=== PATIENT | male | born 1940 | race Caucasian/White ===

== ENCOUNTER 2018-05-09 20:31 | Inpatient (IN) | payer MEDICARE ==
[2018-05-10 01:36] VITALS: BP 149/70
[2018-05-10] MEDS ORDERED: Magnesium Hydroxide (MOM) 30 mL UDC PO PRN (01:36)
[2018-05-10] MEDS ORDERED: NITROGLYCERIN 2.5 MG PO PRN (01:41)
[2018-05-10] MEDS ORDERED: POTASSIUM CITRATE PO PRN (01:41)
[2018-05-10] MEDS ORDERED: MAGNESIUM OXIDE 800 MG PO PRN (01:41)
--- NOTE | 2018-05-10 07:49 | Psychiatric Evaluation ---
DATE OF SERVICE: 05/10/2018 JUSTIFICATION FOR HOSPITALIZATION: The patient with worsening confusion, combative behaviors, more paranoid. CHIEF COMPLAINT: Psychotic decompensation. HISTORY OF PRESENT ILLNESS: This is a 77-year-old male brought in from [facility]. The patient reported to have been very confused, combative, garbled speech, withdrawn. On [id number], the patient says nothing to me, stares blankly, per staff he is confused, AO to name only, able to follow simple instructions, needing a higher level of care, high level of nursing care. For example, wears diapers. PAST PSYCHIATRIC HISTORY: Dementia. PAST MEDICAL HISTORY: Craniotomy, brain stimulation history of as well as Parkinson's disease. FAMILY HISTORY: Unclear. SOCIAL HISTORY: Generally unclear. Per documentation, he is coming from an address in [facility], friend on face sheet. MEDICATIONS: Noted. MENTAL STATUS EXAMINATION: Stated age. Having appeared staring blankly, not saying anything to me. Per staff AO to name only. Mood not answering. Affect flat. Thought processes were generally confused, disoriented. No overt SI or HI, unclear psychotic symptoms. Insight and judgment diminished. Poor impulse control. PROVISIONAL DIAGNOSES: Dementia with behaviors. Mood, unspecified; anxiety, unspecified. Under medical please see full H and P. ESTIMATED LENGTH OF STAY: 5-7 days. Functional impairments noted and constant for example pain, not answering. ASSESSMENT: The patient unruly, aggressive, combative, could not be cared for a lower level of care. PLAN: We will continue medications, make appropriate adjustments. TREATMENT PLAN: Includes group as well as milieu therapy. CONDITIONS FOR DISCHARGE: Improved mood, improved affect, better control of any combative behaviors. JOB# [id number]
--- NOTE | 2018-05-11 10:13 | Progress Notes ---
DATE: 05/11/2018 SUBJECTIVE: The patient in the hospital, worsening confusion, combative behavior is brought in from [facility], confused, combative, garbled speech, staring blankly, appearing to be AO to name only, confused, disoriented, resting comfortably in bed right now, sleeping, but arousable, following simple commands, seems to be AO to name only, not answering any of questions. The patient with advanced dementia, craniotomy with brain stimulator. ASSESSMENT: The patient requiring a higher level of care, impulsive, unpredictable. The patient with combative behaviors previously, behaviors remain unpredictable sometimes resistant to care. Medications were noted. PLAN: We will continue to monitor, titrate and adjust medications. Continue Greg Rich. JOB# [id number]
--- NOTE | 2018-05-11 19:41 | History & Physical ---
ADMIT DATE: 05/09/2018 SUBJECTIVE: The patient is a 77-year-old male patient who was brought for the psych unit for Geropsych problem which is getting worsening, confusion, very combative behavior and more paranoid. CHIEF COMPLAINT: Basically as above. HISTORY OF PRESENT ILLNESS: A 77-year-old male patient. The patient came from [facility]. The patient has been confused and has been very combative and no other history could be obtained from him. PAST MEDICAL HISTORY: Includes history of dementia, history of craniotomy with nerve stimulation history as well and history of Parkinson disease. FAMILY HISTORY: Unremarkable. SOCIAL HISTORY: Difficult to obtain. MEDICATIONS: As noted in the chart. PHYSICAL EXAMINATION: HEAD: Normal. ENT: Normal. NECK: Supple, nontender. LUNGS: Bilaterally clear. CARDIOVASCULAR SYSTEM: S1, S2 heard. ABDOMEN: Soft. Bowel sounds are heard. CENTRAL NERVOUS SYSTEM: Basically the patient is shaky, he has Parkinson disease and the patient has dementia. He is very confused, combative. DIAGNOSES: Combativeness, aggressiveness, impulsive behavior, psychosis, history of depression and status post history of severe dementia. He is status post craniotomy. PLAN: The patient is being admitted and I will follow along with the psychiatrist and I will follow medically. [facility]# [id number]
--- NOTE | 2018-05-12 10:29 | General Progress Note ---
Subjective - Review of Systems Events since last encounter: patient is paranoid confused irritable, denies pain Objective - Physical Exam Vitals and I&O: Vital Signs Temp 98.2 F 05/11/18 20:12 Pulse 97 05/12/18 08:56 Resp 18 05/11/18 20:12 BP 172/85 05/12/18 08:56 Pulse Ox 97 05/11/18 20:12 Intake & Output 05/11/18 05/12/18 05/12/18 18:59 06:59 18:59 Intake Total 1100 120 Balance 1100 120 Intake: Oral 1100 120 Other: # Voids 3 3 # Bowel Movements 0 Active Medications: Current Medications Acetaminophen (Tylenol) 650 mg PO Q4HR PRN PRN Reason: Mild Pain / Temp above 100 Stop: 07/09/18 01:35 Amlodipine Besylate (Norvasc) 2.5 mg PO DAILY [facility] Stop: 07/09/18 08:59 Last Admin: 05/12/18 08:56 Dose: 2.5 mg Carbidopa/Levodopa (Sinemet 25mg-100 Mg) 1 tab PO Q6HR [facility] Stop: 07/09/18 05:59 Last Admin: 05/12/18 06:30 Dose: 1 tab Entacapone (Comtan) 200 mg PO Q6HR [facility] Stop: 07/09/18 05:59 Last Admin: 05/12/18 06:30 Dose: 200 mg Escitalopram Oxalate (Lexapro) 10 mg PO DAILY [facility]; Protocol Stop: 07/09/18 08:59 Last Admin: 05/12/18 08:57 Dose: 10 mg Gabapentin (Neurontin) 100 mg PO BID [facility] Stop: 07/09/18 08:59 Last Admin: 05/12/18 08:57 Dose: 100 mg Lorazepam (Ativan) 0.5 mg PO Q4HR PRN; Protocol PRN Reason: Anxiety Stop: 06/09/18 01:35 Magnesium Hydroxide (Milk Of Magnesia) 30 ml PO HS PRN PRN Reason: Constipation Memantine (Namenda) 5 mg PO DAILY [facility] Stop: 07/09/18 08:59 Last Admin: 05/12/18 08:57 Dose: 5 mg Nitroglycerin (Nitrostat) 0.4 mg SL Q5M PRN PRN Reason: Chest Pain Stop: 07/09/18 07:14 Simvastatin (Zocor) 20 mg PO HS [facility]; Protocol Stop: 07/09/18 20:59 Last Admin: 05/11/18 21:46 Dose: 20 mg Temazepam (Restoril) 15 mg PO HS PRN; Protocol PRN Reason: Sleeplessness Stop: 07/09/18 01:40 Zolpidem Tartrate (Ambien) 5 mg PO HS PRN PRN Reason: Insomnia Stop: 07/09/18 01:35 General: No acute distress HEENT: Atraumatic Neck: Supple Cardiovascular: Regular rate, Normal S1, Normal S2 Lungs: Clear to auscultation Abdomen: Bowel sounds Assessment/Plan - Problem List Patient Problems: All Active Problems Aggressiveness (Acute) R46.89 Combative behavior (Acute) R46.89 Depression (Acute) F32.9 History of impulsive behavior (Acute) Z86.59 Psychosis (Acute) F29 Severe dementia (Acute) F03.90 Status post craniotomy (Acute) Z98.890 - Plan Plan: as per psych will monitor
--- NOTE | 2018-05-12 13:31 | History & Physical ---
ADMIT DATE: 05/10/2018 CHIEF COMPLAINT: Agitation. HISTORY OF PRESENT ILLNESS: This is a 77-year-old male who was admitted through the Emergency Room from [facility] due to agitation and confusion. REVIEW OF SYSTEMS: GENERAL: This is a 77-year-old male who appears as stated. No weakness. No fever. HEENT: No headache. No dizziness. EYES: No eye pain, no blurring of vision. NECK: No neck pain, no nuchal rigidity. CHEST: No chest pain or palpitation. PULMONARY: No coughing. No shortness of breath. GASTROINTESTINAL: No abdominal pain, no constipation, no diarrhea. MUSCULOSKELETAL: No joint pain. Dictation ends here JOB# [id number]
--- NOTE | 2018-05-12 14:49 | Progress Notes ---
DATE: 05/12/2018 SUBJECTIVE: A 77-year-old male brought in from [facility], confused, combative, garbled speech, withdrawn. The patient is still very confused, disoriented, not saying much. History of dementia, craniotomy, requiring a higher level of nursing care. Resting in bed, arousable when I tried to wake him, but not saying anything, staring blankly, needing a higher level of ADLs, remains isolative, withdrawn, mostly keeps to himself, mumbling to self, ongoing concerns about her impulse control, appearing sad, withdrawn, sometimes disruptive, mood labile, selectively mute, coming in because of combative behaviors. ASSESSMENT: The patient remains impulsive, unpredictable, requiring a higher level of nursing care. Staring blankly at me. Unable to really participate in any meaningful conversation. PLAN: We will continue to monitor. MEDICATIONS: Reviewed. JOB# [id number]
[2018-05-13 08:11] LABS: % BASOPHILS 2.1 % (0.0-2.0); % EOSINOPHILS 0.1 % (0.0-5.0); % LYMPHOCYTES 10.6 % (20.0-50.0); % MONOCYTES 4.7 % (2.0-10.0); % NEUTROPHILS 82.5 % (40.0-80.0); BASOPHILE ABSOLUTE 0.2 Th/cumm (0-0.2); HEMATOCRIT 45.9 % (41.0-60); HEMOGLOBIN 15.5 gm/dL (12-16); LYMPHOCYTE ABSOLUTE 0.9 Th/cmm (1.5-3.0); MEAN CELL VOLUME 90.8 fl (80-99); MEAN CORPUSCULAR HEMOGLOBIN 30.7 pg (27.0-31.0); MEAN CORPUSCULAR HGB CONC 33.8 pg (28.0-36.0); MEAN PLATELET VOLUME 8.3 fl; MONOCYTE ABSOLUTE 0.4 Th/cmm (0.3-1.0); PLATELET COUNT 337 Th/cmm (150-400); RED BLOOD COUNT 5.05 Mil/cmm (3.80-5.80); RED CELL DISTRIBUTION WIDTH 12.8 % (11.5-20.0); WHITE BLOOD COUNT 8.5 Th/cmm (4.8-10.8)
--- NOTE | 2018-05-13 08:20 | Diagnostic Imaging Report ---
Portable chest x-ray Time: 0 739 History: Pneumonia Allowing for portable technique the heart size is normal. No focal pulmonary parenchymal processes. No hilar or mediastinal abnormalities. 5 mm granuloma is appreciated in the right lower lung, comparison will studies recommended. Impression: No acute abnormalities.
[2018-05-13 08:41] LABS: ALB/GLOB RATIO 1.4 (1.0-1.8); ALBUMIN 4.3 gm/dL (4.2-5.5); ALKALINE PHOSPHATASE 92 U/L (34-104); ANION GAP 12.2 (7.0-16.0); BILIRUBIN,TOTAL 0.7 mg/dL (0.3-1.0); BUN - UREA NITROGEN 39 mg/dL (7-25); CALCIUM SERUM 10.4 mg/dL (8.6-10.3); CARBON DIOXIDE 29.4 mEq/L (21.0-31.0); CHLORIDE 109 mEq/L (98-107); CREATININE - SERUM 1.2 mg/dL (0.7-1.3); GLUCOSE 149 mg/dL (70-105); POTASSIUM SERUM 3.6 mEq/L (3.5-5.1); SGOT 13 U/L (13-39); SGPT/ALT 3 U/L (7-52); SODIUM SERUM 147 mEq/L (136-145); TOTAL PROTEIN,SERUM 7.4 gm/dL (6.0-8.3)
--- NOTE | 2018-05-13 23:44 | Progress Notes ---
DATE: 05/13/[address] Borrero. SUBJECTIVE: Case was discussed with staff of the patient, reviewed records. This is a 77-year-old male who does not feel depressed, although ____ confusion, combative behavior, paranoid who came from [facility]. The patient was very confused, guarded speech, withdrawn, unable to carry on a conversation. He can tell his name. Unable to follow simple instructions. He is demented. He has a history of craniotomy, brain stimulation and Parkinson's disease. The patient appears to be internally preoccupied, would not follow any conversation. He is on Lexapro 10 mg daily, and Sinemet, gabapentin 100 mg twice a day, Namenda 5 mg daily, and no side effects with the medication, no sedation, no nausea. I will continue the patient in group therapy, milieu therapy and adjust medications. JOB# [id number]
--- NOTE | 2018-05-14 15:45 | General Progress Note ---
Subjective - Review of Systems Events since last encounter: patient is confused paranoid anxious Objective - Results Result Diagrams: 05/13/18 08:05 05/13/18 08:05 Recent Labs: Laboratory Last Values WBC 8.5 Th/cmm (4.8-10.8) 05/13/18 08:05 RBC 5.05 Mil/cmm (3.80-5.80) 05/13/18 08:05 Hgb 15.5 gm/dL (12-16) 05/13/18 08:05 Hct 45.9 % (41.0-60) 05/13/18 08:05 MCV 90.8 fl (80-99) 05/13/18 08:05 MCH 30.7 pg (27.0-31.0) 05/13/18 08:05 MCHC Differential 33.8 pg (28.0-36.0) 05/13/18 08:05 RDW 12.8 % (11.5-20.0) 05/13/18 08:05 Plt Count 337 Th/cmm (150-400) 05/13/18 08:05 MPV 8.3 fl 05/13/18 08:05 Neutrophils % 82.5 % (40.0-80.0) H 05/13/18 08:05 Lymphocytes % 10.6 % (20.0-50.0) L 05/13/18 08:05 Monocytes % 4.7 % (2.0-10.0) 05/13/18 08:05 Eosinophils % 0.1 % (0.0-5.0) 05/13/18 08:05 Basophils % 2.1 % (0.0-2.0) H 05/13/18 08:05 Sodium 147 mEq/L (136-145) H 05/13/18 08:05 Potassium 3.6 mEq/L (3.5-5.1) 05/13/18 08:05 Chloride 109 mEq/L (98-107) H 05/13/18 08:05 Carbon Dioxide 29.4 mEq/L (21.0-31.0) 05/13/18 08:05 Anion Gap 12.2 (7.0-16.0) 05/13/18 08:05 BUN 39 mg/dL (7-25) H 05/13/18 08:05 Creatinine 1.2 mg/dL (0.7-1.3) 05/13/18 08:05 Est GFR ( Amer) TNP 05/13/18 08:05 Est GFR (Non-Af Amer) TNP 05/13/18 08:05 BUN/Creatinine Ratio 32.5 05/13/18 08:05 Glucose 149 mg/dL (70-105) H 05/13/18 08:05 Calcium 10.4 mg/dL (8.6-10.3) H 05/13/18 08:05 Total Bilirubin 0.7 mg/dL (0.3-1.0) 05/13/18 08:05 AST 13 U/L (13-39) 05/13/18 08:05 ALT 3 U/L (7-52) L 05/13/18 08:05 Alkaline Phosphatase 92 U/L (34-104) 05/13/18 08:05 Ammonia 46 umol/L (16-53) 05/13/18 08:05 Total Protein 7.4 gm/dL (6.0-8.3) 05/13/18 08:05 Albumin 4.3 gm/dL (4.2-5.5) 05/13/18 08:05 Globulin 3.1 gm/dL 05/13/18 08:05 Albumin/Globulin Ratio 1.4 (1.0-1.8) 05/13/18 08:05 TSH 0.32 uIU/ml (0.34-5.60) L 05/13/18 08:05 - Physical Exam Vitals and I&O: Vital Signs Temp 98.2 F 05/14/18 14:00 Pulse 60 05/14/18 14:00 Resp 20 05/14/18 14:00 BP 120/67 05/14/18 14:00 Pulse Ox 96 05/14/18 14:00 Intake & Output 05/13/18 05/14/18 05/14/18 18:59 06:59 18:59 Intake Total 700 120 Balance 700 120 Intake: Oral 700 120 Other: # Voids 2 3 # Bowel Movements 0 Active Medications: Current Medications Acetaminophen (Tylenol) 650 mg PO Q4HR PRN PRN Reason: Mild Pain / Temp above 100 Stop: 07/09/18 01:35 Last Admin: 05/12/18 22:03 Dose: 650 mg Amlodipine Besylate (Norvasc) 2.5 mg PO DAILY [facility] Stop: 07/09/18 08:59 Last Admin: 05/14/18 08:30 Dose: 2.5 mg Carbidopa/Levodopa (Sinemet 25mg-100 Mg) 1 tab PO Q6HR [facility] Stop: 07/09/18 05:59 Last Admin: 05/14/18 14:24 Dose: Not Given Entacapone (Comtan) 200 mg PO Q6HR [facility] Stop: 07/09/18 05:59 Last Admin: 05/14/18 12:20 Dose: Not Given Escitalopram Oxalate (Lexapro) 10 mg PO DAILY [facility]; Protocol Stop: 07/09/18 08:59 Last Admin: 05/14/18 08:30 Dose: 10 mg Gabapentin (Neurontin) 100 mg PO BID [facility] Stop: 07/09/18 08:59 Last Admin: 05/14/18 08:30 Dose: 100 mg Lorazepam (Ativan) 0.5 mg PO Q4HR PRN; Protocol PRN Reason: Anxiety Stop: 06/09/18 01:35 Magnesium Hydroxide (Milk Of Magnesia) 30 ml PO HS PRN PRN Reason: Constipation Memantine (Namenda) 5 mg PO DAILY [facility] Stop: 07/09/18 08:59 Last Admin: 05/14/18 08:30 Dose: 5 mg Nitroglycerin (Nitrostat) 0.4 mg SL Q5M PRN PRN Reason: Chest Pain Stop: 07/09/18 07:14 Simvastatin (Zocor) 20 mg PO HS [facility]; Protocol Stop: 07/09/18 20:59 Last Admin: 05/13/18 21:32 Dose: Not Given Temazepam (Restoril) 15 mg PO HS PRN; Protocol PRN Reason: Sleeplessness Stop: 07/09/18 01:40 Zolpidem Tartrate (Ambien) 5 mg PO HS PRN PRN Reason: Insomnia Stop: 07/09/18 01:35 General: No acute distress HEENT: Atraumatic Neck: Supple Cardiovascular: Regular rate, Normal S1, Normal S2 Lungs: Clear to auscultation Abdomen: Bowel sounds Assessment/Plan - Problem List Patient Problems: All Active Problems Aggressiveness (Acute) R46.89 Combative behavior (Acute) R46.89 Depression (Acute) F32.9 History of impulsive behavior (Acute) Z86.59 Psychosis (Acute) F29 Severe dementia (Acute) F03.90 Status post craniotomy (Acute) Z98.890 - Plan Plan: as per psych will monitor
--- NOTE | 2018-05-14 21:26 | Progress Notes ---
DATE: 05/14/2018 Case was discussed with staff of the patient, reviewed records. The patient continues to be confused. Continues to be unpredictable, impulsive, and paranoid. Continues to have poor insight. Unable to follow direction or participate in a meaningful conversation, internally preoccupied. He is compliant with the medication with no side effects, no sedation, no nausea and Namenda was initiated 2 days ago. We will continue outpatient group therapy, milieu therapy, adjust the medication as needed. JOB# [id number]
--- NOTE | 2018-05-15 11:42 | General Progress Note ---
Subjective - Review of Systems Events since last encounter: patient awake alert in no distress Objective - Results Result Diagrams: 05/13/18 08:05 05/13/18 08:05 Recent Labs: Laboratory Last Values WBC 8.5 Th/cmm (4.8-10.8) 05/13/18 08:05 RBC 5.05 Mil/cmm (3.80-5.80) 05/13/18 08:05 Hgb 15.5 gm/dL (12-16) 05/13/18 08:05 Hct 45.9 % (41.0-60) 05/13/18 08:05 MCV 90.8 fl (80-99) 05/13/18 08:05 MCH 30.7 pg (27.0-31.0) 05/13/18 08:05 MCHC Differential 33.8 pg (28.0-36.0) 05/13/18 08:05 RDW 12.8 % (11.5-20.0) 05/13/18 08:05 Plt Count 337 Th/cmm (150-400) 05/13/18 08:05 MPV 8.3 fl 05/13/18 08:05 Neutrophils % 82.5 % (40.0-80.0) H 05/13/18 08:05 Lymphocytes % 10.6 % (20.0-50.0) L 05/13/18 08:05 Monocytes % 4.7 % (2.0-10.0) 05/13/18 08:05 Eosinophils % 0.1 % (0.0-5.0) 05/13/18 08:05 Basophils % 2.1 % (0.0-2.0) H 05/13/18 08:05 Sodium 147 mEq/L (136-145) H 05/13/18 08:05 Potassium 3.6 mEq/L (3.5-5.1) 05/13/18 08:05 Chloride 109 mEq/L (98-107) H 05/13/18 08:05 Carbon Dioxide 29.4 mEq/L (21.0-31.0) 05/13/18 08:05 Anion Gap 12.2 (7.0-16.0) 05/13/18 08:05 BUN 39 mg/dL (7-25) H 05/13/18 08:05 Creatinine 1.2 mg/dL (0.7-1.3) 05/13/18 08:05 Est GFR ( Amer) TNP 05/13/18 08:05 Est GFR (Non-Af Amer) TNP 05/13/18 08:05 BUN/Creatinine Ratio 32.5 05/13/18 08:05 Glucose 149 mg/dL (70-105) H 05/13/18 08:05 POC Glucose 154 MG/DL (70-105) H 05/15/18 00:01 Calcium 10.4 mg/dL (8.6-10.3) H 05/13/18 08:05 Total Bilirubin 0.7 mg/dL (0.3-1.0) 05/13/18 08:05 AST 13 U/L (13-39) 05/13/18 08:05 ALT 3 U/L (7-52) L 05/13/18 08:05 Alkaline Phosphatase 92 U/L (34-104) 05/13/18 08:05 Ammonia 46 umol/L (16-53) 05/13/18 08:05 Total Protein 7.4 gm/dL (6.0-8.3) 05/13/18 08:05 Albumin 4.3 gm/dL (4.2-5.5) 05/13/18 08:05 Globulin 3.1 gm/dL 05/13/18 08:05 Albumin/Globulin Ratio 1.4 (1.0-1.8) 05/13/18 08:05 TSH 0.32 uIU/ml (0.34-5.60) L 05/13/18 08:05 - Physical Exam Vitals and I&O: Vital Signs Temp 98.2 F 05/14/18 14:00 Pulse 60 05/15/18 08:13 Resp 20 05/14/18 14:00 BP 120/67 05/15/18 08:13 Pulse Ox 96 05/14/18 14:00 Intake & Output 05/14/18 05/15/18 05/15/18 18:59 06:59 18:59 Intake Total 500 Balance 500 Intake: Oral 500 Other: # Voids 2 # Bowel Movements 0 Active Medications: Current Medications Acetaminophen (Tylenol) 650 mg PO Q4HR PRN PRN Reason: Mild Pain / Temp above 100 Stop: 07/09/18 01:35 Last Admin: 05/12/18 22:03 Dose: 650 mg Amlodipine Besylate (Norvasc) 2.5 mg PO DAILY [facility] Stop: 07/09/18 08:59 Last Admin: 05/15/18 08:13 Dose: 2.5 mg Carbidopa/Levodopa (Sinemet 25mg-100 Mg) 1 tab PO Q6HR [facility] Stop: 07/09/18 05:59 Last Admin: 05/15/18 05:41 Dose: Not Given Entacapone (Comtan) 200 mg PO Q6HR [facility] Stop: 07/09/18 05:59 Last Admin: 05/15/18 05:41 Dose: Not Given Escitalopram Oxalate (Lexapro) 10 mg PO DAILY [facility]; Protocol Stop: 07/09/18 08:59 Last Admin: 05/15/18 08:12 Dose: 10 mg Gabapentin (Neurontin) 100 mg PO BID [facility] Stop: 07/09/18 08:59 Last Admin: 05/15/18 08:12 Dose: 100 mg Lactobacillus Rhamnosus (Culturelle 15b) 1 each PO DAILY [facility] Stop: 07/15/18 08:59 Lorazepam (Ativan) 0.5 mg PO Q4HR PRN; Protocol PRN Reason: Anxiety Stop: 06/09/18 01:35 Magnesium Hydroxide (Milk Of Magnesia) 30 ml PO HS PRN PRN Reason: Constipation Memantine (Namenda) 5 mg PO DAILY [facility] Stop: 07/09/18 08:59 Last Admin: 05/15/18 08:13 Dose: 5 mg Nitroglycerin (Nitrostat) 0.4 mg SL Q5M PRN PRN Reason: Chest Pain Stop: 07/09/18 07:14 Simvastatin (Zocor) 20 mg PO HS [facility]; Protocol Stop: 07/09/18 20:59 Last Admin: 05/14/18 21:03 Dose: Not Given Temazepam (Restoril) 15 mg PO HS PRN; Protocol PRN Reason: Sleeplessness Stop: 07/09/18 01:40 Zolpidem Tartrate (Ambien) 5 mg PO HS PRN PRN Reason: Insomnia Stop: 07/09/18 01:35 General: No acute distress HEENT: Atraumatic Neck: Supple Cardiovascular: Regular rate, Normal S1, Normal S2 Lungs: Clear to auscultation Abdomen: Bowel sounds Assessment/Plan - Problem List Patient Problems: All Active Problems Aggressiveness (Acute) R46.89 Combative behavior (Acute) R46.89 Depression (Acute) F32.9 History of impulsive behavior (Acute) Z86.59 Psychosis (Acute) F29 Severe dementia (Acute) F03.90 Status post craniotomy (Acute) Z98.890 - Plan Plan: as per psych will monitor
--- NOTE | 2018-05-15 17:12 | Progress Notes ---
DATE: 05/15/2018 Case was discussed with staff of the patient, reviewed records. The patient continues to isolate himself. Continues to be overwhelmed, demented, confused, stays to himself and sleeping well. No side effects with the medication, no sedation, no nausea and we will continue outpatient group therapy, milieu therapy, adjust the medication as needed. JOB# [id number]
[2018-05-16 07:58] LABS: CHOLESTEROL 185 mg/dL (<200); HDL -HIGH DENSITY LIPOPROTEIN 35 mg/dL (23-92); TRIGLYCERIDES 121 mg/dL (<150)
[2018-05-16] MEDS ORDERED: Lactobacillus Rhamnosus GG 15 Billion CFU CAP.SPRINK PO SCH (09:00)
[2018-05-16 14:56] LABS: % EOSINOPHILS 0.2 % (0.0-5.0); % LYMPHOCYTES 8.6 % (20.0-50.0); % NEUTROPHILS 85.2 % (40.0-80.0); HEMATOCRIT 50.9 % (41.0-60); HEMOGLOBIN 17.4 gm/dL (12-16); LYMPHOCYTE ABSOLUTE 1.3 Th/cmm (1.5-3.0); MEAN CELL VOLUME 90.1 fl (80-99); MEAN CORPUSCULAR HEMOGLOBIN 30.9 pg (27.0-31.0); MEAN CORPUSCULAR HGB CONC 34.3 pg (28.0-36.0); MEAN PLATELET VOLUME 8.6 fl; MONOCYTE ABSOLUTE 0.9 Th/cmm (0.3-1.0); NEUTROPHILE ABSOLUTE 12.4 Th/cmm (1.8-8.0); PLATELET COUNT 231 Th/cmm (150-400); RED BLOOD COUNT 5.65 Mil/cmm (3.80-5.80); RED CELL DISTRIBUTION WIDTH 12.6 % (11.5-20.0); WHITE BLOOD COUNT 14.6 Th/cmm (4.8-10.8)
[2018-05-16 15:21] LABS: ALB/GLOB RATIO 1.2 (1.0-1.8); ALBUMIN 4.3 gm/dL (4.2-5.5); ALKALINE PHOSPHATASE 84 U/L (34-104); ANION GAP 14.4 (7.0-16.0); BILIRUBIN,TOTAL 0.8 mg/dL (0.3-1.0); CALCIUM SERUM 10.4 mg/dL (8.6-10.3); CARBON DIOXIDE 28.6 mEq/L (21.0-31.0); CHLORIDE 118 mEq/L (98-107); CREATININE - SERUM 1.9 mg/dL (0.7-1.3); GLUCOSE 166 mg/dL (70-105); SGOT 21 U/L (13-39); SGPT/ALT 19 U/L (7-52); SODIUM SERUM 157 mEq/L (136-145)
[2018-05-16 15:25] LABS: BUN - UREA NITROGEN 87 mg/dL (7-25)
--- NOTE | 2018-05-16 19:01 | History & Physical ---
ADMIT DATE: 05/09/2018 CHIEF COMPLAINT: Transferred from Geropsych Unit due to elevated BUN and creatinine and failure to thrive. HISTORY OF PRESENT ILLNESS: This is a 77-year-old male who is a resident of [facility]. Apparently, the patient was initially admitted to the Geropsych Unit. The patient has been refusing to eat and drink and the patient's stat BUN and creatinine was ordered and the patient's BUN and creatinine were elevated. For this reason, the patient is now admitted here to the med/surg unit. PAST MEDICAL HISTORY: Psychosis, hypertension, neuropathy, hypercholesterolemia and dementia. PAST SURGICAL HISTORY: Unknown. ALLERGIES: No drug allergies. HOME MEDICATIONS: See medication list. FAMILY HISTORY: Noncontributory. SOCIAL HISTORY: The patient is a intermediate resident, requiring 24-hour nursing care. REVIEW OF SYSTEMS: Unable to obtain at this time. PHYSICAL EXAMINATION: GENERAL: Elderly male, awake with confusion, no apparent distress. VITAL SIGNS: Temperature 101.2, heart rate 100, blood pressure 125/71, respirations 20 and O2 97%. HEENT: Head; normocephalic, atraumatic. NECK: Supple. No mass. LUNGS: Clear bilaterally. HEART: Regular rate and rhythm. ABDOMEN: Soft, nontender. LABORATORY DATA: WBC 14.6, H and H 17.4 and 50.9 and platelet of 231. Sodium 157, potassium 4.0, chloride 118, BUN 87 and creatinine 1.9. ASSESSMENT: Leukocytosis; severe dehydration; acute renal insufficiency, rule out severe dehydration; failure to thrive; dementia; hypertension and neuropathy. PLAN: The patient to be admitted to the med/surg unit. We will give patient aggressive IV fluids for hydration. If the patient's BUN and creatinine does not improve with IV fluids we will consider Nephrology consultation as well as a renal ultrasound as well. We will get a swallow evaluation done. Psychiatry consultation as well. We will get a urinalysis. We will continue to follow this patient. [facility]# [id number]
--- NOTE | 2018-06-01 18:31 | Discharge Summary ---
DATE OF DISCHARGE: 05/16/2018 AGE: 77. SEX: Male. PHYSICIAN: Dr. Borrero. FINAL DIAGNOSIS: PRIMARY DIAGNOSIS: Unspecified psychosis. SECONDARY DIAGNOSIS: Dementia with behavioral problems. REASON FOR HOSPITALIZATION: The patient was admitted to the hospital from [facility] because of increased agitation and because of combative behavior. HOSPITAL COURSE: The patient continued to be agitated and in irritable mood. The patient also was combative and he was in irritable mood. The patient also was having difficulty following directions. The patient was given Lexapro at a dose of 10 mg every day. Also, gabapentin 100 mg twice a day that helped the patient's mood and the patient was less irritable and less agitated. Also, was given Namenda in a dose of 5 mg everyday. Gradually, the patient's affect was brighter. The patient was less irritable and less agitated. The patient was not as aggressive and not as depressed and/or confused and the patient was discharged from the hospital. Physical examination of the patient showed the patient had no major medical problems while in the hospital. Blood workup was also basically within normal. AFTER-DISCHARGE PLANS: The patient discharged from the hospital with plans for outpatient treatment and followup to continue as an outpatient. EXPECTED OUTCOME AFTER DISCHARGE: Fair if the patient continues to take his psychotropic medications and follow up with discharge plans. JOB# [id number]
== END 2018-05-16 16:30 | disposition short-term general hospital (02) | DRG 885 ==
LOC: GERO 20:31
PROVIDERS: ADMIT Psychiatry & Neurology Psychiatry; ATTEND Psychiatry & Neurology Psychiatry
DX: F39 Unspecified mood [affective] disorder (principal); F02.81 Dementia in other diseases classified elsewhere, unspecified severity, with behavioral disturbance; F41.9 Anxiety disorder, unspecified; G20 Parkinson's disease; F29 Unspecified psychosis not due to a substance or known physiological condition; G62.9 Polyneuropathy, unspecified; E78.00 Pure hypercholesterolemia, unspecified; D72.829 Elevated white blood cell count, unspecified; E86.0 Dehydration; N28.9 Disorder of kidney and ureter, unspecified; R62.7 Adult failure to thrive
CPT/HCPCS: 36415-UA; 71045-TC; 80053-TC; 80061-TC; 82140-TC; 82948-90; 83036-90; 84443-TC; 85025-TC; Z7610

== ENCOUNTER 2018-05-16 15:51 | Inpatient (IN) | payer MEDICARE ==
[2018-05-16] MEDS ORDERED: Magnesium Hydroxide (MOM) 30 mL UDC PO PRN (16:06)
--- NOTE | 2018-05-16 16:53 | Progress Notes ---
DATE: 05/16/2018 Case was discussed with staff of the patient, reviewed records. The patient consistent in same bed, hardly say anything. Continues to have poor insight, withdrawn, internally preoccupied. Unable to pass a meaningful, or make safe plan for self-care, unpredictable, impulsive. His lab work shows high neutrophil and low lymphocyte the rest within normal range. Chemistry panel with high sodium level and high BUN and high blood sugar, high calcium. The rest within normal range. TSH is low at 0.32. I will be consulting the medical doctor regarding that and Dr. Paez. We will continue the patient in group therapy, milieu therapy, and adjust the medication as needed. JOB# [id number]
[2018-05-16] MEDS: D5-0.45NS 1,000 ML IV SCH (17:18)
[2018-05-16] MEDS: Levofloxacin 500mg/100mL 500 MG/100 ML BAG IV SCH (17:24)
[2018-05-16 19:05] VITALS: BP 130/71
[2018-05-16 23:33] LABS: URINE SOURCE CLEAN C
[2018-05-16 23:34] LABS: URINE BILIRUBIN NEGATIVE (NEGATIVE); URINE BLOOD TRACE (NEGATIVE); URINE GLUCOSE (UA) NEGATIVE (NEGATIVE); URINE KETONE NEGATIVE (NEGATIVE); URINE LEUKOCYTE ESTERASE NEGATIVE (NEGATIVE); URINE MICROSCOPIC INDICATED? YES; URINE NITRATE NEGATIVE (NEGATIVE); URINE PH 5.5 (4.6 - 8.0); URINE PROTEIN 30 mg/dL (NEGATIVE); URINE UROBILINOGEN 0.2 E.U./dL (0.2 - 1.0)
[2018-05-17] MEDS: D5-0.45NS 1,000 ML IV SCH (03:22)
[2018-05-17 04:30] LABS: URINE CLARITY HAZY (CLEAR); URINE COLOR YELLOW
[2018-05-17 04:37] LABS: URINE BACTERIA OCCASIONAL /hpf (NONE SEEN); URINE EPITHELIAL CELLS OCCASIONAL /lpf (FEW); URINE RBC 0-2 /hpf (0-5); URINE WBC 0-2 /hpf (0-5)
[2018-05-17 06:36] LABS: HEMATOCRIT 48.2 % (41.0-60); MEAN CELL VOLUME 91.5 fl (80-99); MEAN CORPUSCULAR HEMOGLOBIN 30.4 pg (27.0-31.0); MEAN CORPUSCULAR HGB CONC 33.2 pg (28.0-36.0); MEAN PLATELET VOLUME 9.8 fl; PLATELET COUNT 196 Th/cmm (150-400); RED BLOOD COUNT 5.27 Mil/cmm (3.80-5.80); RED CELL DISTRIBUTION WIDTH 12.8 % (11.5-20.0)
[2018-05-17 06:44] LABS: ALB/GLOB RATIO 1.3 (1.0-1.8); ALKALINE PHOSPHATASE 72 U/L (34-104); ANION GAP 13.8 (7.0-16.0); BILIRUBIN,TOTAL 0.9 mg/dL (0.3-1.0); CALCIUM SERUM 9.8 mg/dL (8.6-10.3); CARBON DIOXIDE 27.1 mEq/L (21.0-31.0); CHLORIDE 119 mEq/L (98-107); CREATININE - SERUM 1.8 mg/dL (0.7-1.3); GLUCOSE 196 mg/dL (70-105); POTASSIUM SERUM 3.9 mEq/L (3.5-5.1); SGOT 14 U/L (13-39); SGPT/ALT 16 U/L (7-52); SODIUM SERUM 156 mEq/L (136-145); TOTAL PROTEIN,SERUM 7.2 gm/dL (6.0-8.3)
[2018-05-17 06:56] LABS: WHITE BLOOD COUNT 15.9 Th/cmm (4.8-10.8)
[2018-05-17 07:25] LABS: BAND NEUTROPHILE 0 % (0-10); BASOPHIL 0 % (0-3); EOSINOPHIL 0 % (0-5); LYMPHOCYTE 7 % (20-50); MONOCYTE 3 % (2-10); NEUTROPHILS 90 % (40-80)
[2018-05-17 08:00] LABS: BUN - UREA NITROGEN 88 mg/dL (7-25)
[2018-05-17] MEDS: Lactobacillus Rhamnosus GG 15 Billion CFU CAP.SPRINK PO SCH (08:49)
[2018-05-17] MEDS ORDERED: D5-0.45NS 1,000 ML IV SCH (09:57)
--- NOTE | 2018-05-17 10:02 | Diagnostic Imaging Report ---
CHEST X-RAY: AP view INDICATION: Fever COMPARISON: 05/13/2018 FINDINGS: Bilateral similar apparatuses are noted limiting assessment of the mid lung zones. There is no focal consolidation or pleural effusions . Vessel on end versus 5 mm calcified granuloma the right lower lung zone is noted. Mild chronic lung changes are noted. Degenerative changes of the spine are noted. IMPRESSION: No focal consolidation identified. Note assessment and mid lung zones was suboptimal due to patient's bilateral stimulator apparatuses. Vessel on end versus 5 mm calcified granuloma of the right lower lung.
--- NOTE | 2018-05-17 11:55 | History & Physical ---
ADMIT DATE: 05/16/2018 CHIEF COMPLAINT: Failure to thrive. HISTORY OF PRESENT ILLNESS: This is a 77-year-old male who was admitted from [facility] to Med/Surg unit due to lethargic and poor oral intake. REVIEW OF SYSTEMS: GENERAL: This is a 77-year-old male that appears as stated. No fever. Positive weakness. HEAD: No headache. No dizziness. EYES: No eye pain or blurring of vision. NECK: No neck pain or nuchal rigidity. CHEST: No chest pain. No palpitation. PULMONARY: No coughing. No shortness of breath. GASTROINTESTINAL: No abdominal pain. No constipation or diarrhea. MUSCULOSKELETAL: No joint pain. No muscle pain. SOCIAL HISTORY: The patient was being treated in [facility] prior to being transferred to Med/Surg unit. FAMILY HISTORY: Unremarkable. PAST SURGICAL HISTORY: Unremarkable. PAST MEDICAL HISTORY: Includes osteoarthritis, hypertension, Parkinson's disease, and hyperlipidemia,. PAST PSYCHIATRIC HISTORY: Included dementia. PHYSICAL EXAMINATION: VITAL SIGNS: Temperature is 99.3, heart rate of 85, blood pressure 142/77, respirations 17, and saturation of 95% on room air. GENERAL: This is a 77-year-old male that appears as stated in no acute distress. HEENT: Head is atraumatic, normocephalic. Eyes, bilateral conjunctivae are clear. Bilateral pupils equal, round and reactive. NECK: Supple. No JVD. CARDIOVASCULAR: S1 and S2, without murmur. LUNGS: Clear to auscultation. GASTROINTESTINAL: Soft and nontender without guarding. Positive bowel sounds. MUSCULOSKELETAL: No clubbing. No cyanosis noted. ASSESSMENT: 1. Failure to thrive. 2. Dementia. 3. Hypertension. 4. Parkinson's disease. 5. Hyperlipidemia. 6. Osteoarthritis. PLAN: We will do medication reconciliation accordingly. We will have the patient ____ a swallow evaluation. We will also get the patient with IV fluids. Treatment plans were discussed with the patient's nurse. Treatment plans were discussed with Dr. Paez. JOB# [id number]
[2018-05-17] MEDS ORDERED: Dextrose 5% 1,000 ML IV SCH (13:12)
[2018-05-17] MEDS: Dextrose 5% 1,000 ML IV SCH ×2 (14:19→20:40)
[2018-05-17 16:13] LABS: URINE SOURCE CATH
[2018-05-17 16:27] LABS: URINE BILIRUBIN NEGATIVE (NEGATIVE); URINE CLARITY CLEAR (CLEAR); URINE COLOR YELLOW; URINE GLUCOSE (UA) >=1000 mg/dL (NEGATIVE); URINE MICROSCOPIC INDICATED? YES
[2018-05-17 16:28] LABS: URINE BLOOD MODERATE (NEGATIVE); URINE KETONE NEGATIVE (NEGATIVE); URINE PROTEIN TRACE mg/dL (NEGATIVE); URINE UROBILINOGEN 0.2 E.U./dL (0.2 - 1.0)
[2018-05-17 16:29] LABS: URINE LEUKOCYTE ESTERASE NEGATIVE (NEGATIVE); URINE NITRATE NEGATIVE (NEGATIVE)
[2018-05-17 16:30] LABS: URINE BACTERIA 1+ /hpf (NONE SEEN); URINE EPITHELIAL CELLS FEW /lpf (FEW); URINE WBC 0-2 /hpf (0-5)
[2018-05-17 16:31] LABS: URINE FINE GRANULAR CAST 0-2 /lpf (NONE SEEN)
[2018-05-17] MEDS: Levofloxacin 500mg/100mL 500 MG/100 ML BAG IV SCH (17:00)
[2018-05-18] MEDS: Dextrose 5% 1,000 ML IV SCH ×3 (03:59→20:20)
[2018-05-18 06:48] LABS: % EOSINOPHILS 0.5 % (0.0-5.0); % LYMPHOCYTES 9.1 % (20.0-50.0); % MONOCYTES 6.7 % (2.0-10.0); % NEUTROPHILS 82.7 % (40.0-80.0); BASOPHILE ABSOLUTE 0.1 Th/cumm (0-0.2); EOSINOPHILE ABSOLUTE 0.1 Th/cmm (0.1-0.4); HEMATOCRIT 42.2 % (41.0-60); HEMOGLOBIN 14.1 gm/dL (12-16); LYMPHOCYTE ABSOLUTE 1.2 Th/cmm (1.5-3.0); MEAN CELL VOLUME 91.9 fl (80-99); MEAN CORPUSCULAR HEMOGLOBIN 30.6 pg (27.0-31.0); MEAN CORPUSCULAR HGB CONC 33.3 pg (28.0-36.0); MEAN PLATELET VOLUME 9.6 fl; MONOCYTE ABSOLUTE 0.9 Th/cmm (0.3-1.0); NEUTROPHILE ABSOLUTE 11.1 Th/cmm (1.8-8.0); PLATELET COUNT 146 Th/cmm (150-400); RED BLOOD COUNT 4.59 Mil/cmm (3.80-5.80); RED CELL DISTRIBUTION WIDTH 12.5 % (11.5-20.0); WHITE BLOOD COUNT 13.4 Th/cmm (4.8-10.8)
[2018-05-18 07:06] LABS: ALB/GLOB RATIO 1.3 (1.0-1.8); ALBUMIN 3.5 gm/dL (4.2-5.5); ALKALINE PHOSPHATASE 60 U/L (34-104); ANION GAP 10.8 (7.0-16.0); BILIRUBIN,TOTAL 0.9 mg/dL (0.3-1.0); BUN - UREA NITROGEN 63 mg/dL (7-25); CALCIUM SERUM 9.5 mg/dL (8.6-10.3); CARBON DIOXIDE 28.1 mEq/L (21.0-31.0); CHLORIDE 115 mEq/L (98-107); CREATININE - SERUM 1.5 mg/dL (0.7-1.3); GLUCOSE 172 mg/dL (70-105); POTASSIUM SERUM 3.9 mEq/L (3.5-5.1); SGOT 15 U/L (13-39); SGPT/ALT 11 U/L (7-52); SODIUM SERUM 150 mEq/L (136-145); TOTAL PROTEIN,SERUM 6.3 gm/dL (6.0-8.3)
[2018-05-18] MEDS: Lactobacillus Rhamnosus GG 15 Billion CFU CAP.SPRINK PO SCH (09:14)
--- NOTE | 2018-05-18 11:30 | General Progress Note ---
Subjective - Review of Systems Events since last encounter: patient still lethargic Objective - Results Result Diagrams: 05/18/18 06:29 05/18/18 06:29 Recent Labs: Laboratory Last Values WBC 13.4 Th/cmm (4.8-10.8) H 05/18/18 06:29 RBC 4.59 Mil/cmm (3.80-5.80) 05/18/18 06:29 Hgb 14.1 gm/dL (12-16) 05/18/18 06: Hct 42.2 % (41.0-60) 05/18/18 06: MCV 91.9 fl (80-99) 05/18/18 06: MCH 30.6 pg (27.0-31.0) 05/18/18: MCHC Differential 33.3 pg (28.0-36.0) 05/18/18 06: RDW 12.5 % (11.5-20.0) 05/18/18 06: Plt Count 146 Th/cmm (150-400) L 05/18/18 06: MPV 9.6 fl 05/18/18 06:29 Add Manual Diff YES 05/17/18 05:05 Neutrophils % 82.7 % (40.0-80.0) H 05/18/18 06: Band Neutrophils % 0 % (0-10) 05/17/18 05:05 Lymphocytes % 9.1 % (20.0-50.0) L 05/18/18 06: Monocytes % 6.7 % (2.0-10.0) 05/18/18 06: Eosinophils % 0.5 % (0.0-5.0) 05/18/18 06: Basophils % 1.0 % (0.0-2.0) 05/18/18 06:29 Neutrophils (Manual) 90 % (40-80) H 05/17/18 05:05 Lymphocytes 7 % (20-50) L 05/17/18 05:05 Monocytes 3 % (2-10) 05/17/18 05:05 Eosinophils 0 % (0-5) 05/17/18 05:05 Basophils 0 % (0-3) 05/17/18 05:05 Sodium 150 mEq/L (136-145) H 05/18/18 06:29 Potassium 3.9 mEq/L (3.5-5.1) 05/18/18 06:29 Chloride 115 mEq/L (98-107) H 05/18/18 06:29 Carbon Dioxide 28.1 mEq/L (21.0-31.0) 05/18/18 06:29 Anion Gap 10.8 (7.0-16.0) 05/18/18 06:29 BUN 63 mg/dL (7-25) H 05/18/18 06:29 Creatinine 1.5 mg/dL (0.7-1.3) H 05/18/18 06:29 Est GFR ( Amer) TNP 05/18/18 06:29 Est GFR (Non-Af Amer) TNP 05/18/18 06:29 BUN/Creatinine Ratio 42.0 05/18/18 06:29 Glucose 172 mg/dL (70-105) H 05/18/18 06:29 POC Glucose 181 MG/DL (70 - 105) H 05/16/18 18:51 Whole Bld Lactic Acid 1.37 mmol/L (0.60-1.99) 05/16/18 17:30 Calcium 9.5 mg/dL (8.6-10.3) 05/18/18 06:29 Magnesium 2.8 mg/dL (1.9-2.7) H 05/17/18 13:34 Total Bilirubin 0.9 mg/dL (0.3-1.0) 05/18/18 06:29 AST 15 U/L (13-39) 05/18/18 06:29 ALT 11 U/L (7-52) 05/18/18 06:29 Alkaline Phosphatase 60 U/L (34-104) 05/18/18 06:29 Total Protein 6.3 gm/dL (6.0-8.3) 05/18/18 06:29 Albumin 3.5 gm/dL (4.2-5.5) L 05/18/18 06:29 Globulin 2.8 gm/dL 05/18/18 06:29 Albumin/Globulin Ratio 1.3 (1.0-1.8) 05/18/18 06:29 Urine Source CATH 05/17/18 15:45 Urine Color YELLOW 05/17/18 15:45 Urine Clarity CLEAR (CLEAR) 05/17/18 15:45 Urine pH 6.0 (4.6 - 8.0) 05/17/18 15:45 Ur Specific [place] 1.010 (1.005-1.030) 05/17/18 15:45 Urine Protein TRACE mg/dL (NEGATIVE) 05/17/18 15:45 Urine Glucose (UA) >=1000 mg/dL (NEGATIVE) H 05/17/18 15:45 Urine Ketones NEGATIVE mg/dL (NEGATIVE) 05/17/18 15:45 Urine Blood MODERATE (NEGATIVE) H 05/17/18 15:45 Urine Nitrate NEGATIVE (NEGATIVE) 05/17/18 15:45 Urine Bilirubin NEGATIVE (NEGATIVE) 05/17/18 15:45 Urine Urobilinogen 0.2 E.U./dL (0.2 - 1.0) 05/17/18 15:45 Ur Leukocyte Esterase NEGATIVE (NEGATIVE) 05/17/18 15:45 Urine RBC 5-10 /hpf (0-5) H 05/17/18 15:45 Urine WBC 0-2 /hpf (0-5) 05/17/18 15:45 Ur Epithelial Cells FEW /lpf (FEW) 05/17/18 15:45 Urine Bacteria 1+ /hpf (NONE SEEN) H 05/17/18 15:45 Fine Granular Casts 0-2 /lpf (NONE SEEN) H 05/17/18 15:45 Urine Mucus FEW /lpf (FEW) 05/17/18 15:45 Ur Random Sodium 35 mmol/L 05/17/18 15:45 Urine Creatinine 83.0 mg/dl (39.0-259.0) 05/17/18 15:45 - Physical Exam Vitals and I&O: Vital Signs Temp 98.1 F 05/18/18 07:46 Pulse 66 05/18/18 09:14 Resp 18 05/18/18 08:00 BP 116/53 05/18/18 09:14 Pulse Ox 97 05/18/18 07:46 Intake & Output 05/17/18 05/18/18 05/18/18 18:59 06:59 18:59 Intake Total 100 1708.333 Output Total 200 Balance -100 1708.333 Weight (lbs) 51.256 kg 51.846 kg 51.71 kg Intake: Intake, IV Amount 100 1708.333 Dextrose 5% 1,000 ml @ 1708.333 125 mls/hr IV .Q8H [facility] Rx #:[id number] Levofloxacin 500mg/100mL 100 500 mg In 100 ml @ 100 mls/hr IV Q24HR [facility] Rx#: [id number] Oral 0 Output: Urine 200 Other: # Voids 3 1 # Bowel Movements 0 0 Weight Source Bedscale Bedscale Bedscale Active Medications: Current Medications Acetaminophen (Tylenol) 650 mg PO Q4HR PRN PRN Reason: Mild Pain / Temp above 100 Stop: 07/15/18 16:05 Amlodipine Besylate (Norvasc) 2.5 mg PO DAILY [facility] Stop: 07/16/18 08:59 Last Admin: 05/18/18 09:14 Dose: 2.5 mg Carbidopa/Levodopa (Sinemet 25mg-100 Mg) 1 tab PO Q6HR [facility] Stop: 07/15/18 17:59 Last Admin: 05/18/18 05:34 Dose: Not Given Entacapone (Comtan) 200 mg PO Q6HR [facility] Stop: 07/15/18 17:59 Last Admin: 05/18/18 05:34 Dose: Not Given Escitalopram Oxalate (Lexapro) 10 mg PO DAILY [facility]; Protocol Stop: 07/16/18 08:59 Gabapentin (Neurontin) 100 mg PO BID [facility] Stop: 07/15/18 16:59 Last Admin: 05/18/18 09:14 Dose: 100 mg Levofloxacin (Levaquin Pb) 500 mg in 100 mls @ 100 mls/hr IV Q24HR [facility] Stop: 07/15/18 16:59 Last Infusion: 05/17/18 18:02 Dose: Infused Dextrose (D5w) 1,000 mls @ 125 mls/hr IV .Q8H [facility] Stop: 07/16/18 13:25 Last Admin: 05/18/18 03:59 Dose: 125 mls/hr Lactobacillus Rhamnosus (Culturelle 15b) 1 each PO DAILY [facility] Stop: 07/16/18 08:59 Last Admin: 05/18/18 09:14 Dose: 1 each Lorazepam (Ativan) 0.5 mg PO Q4HR PRN; Protocol PRN Reason: Anxiety Stop: 07/15/18 16:05 Magnesium Hydroxide (Milk Of Magnesia) 30 ml PO HS PRN PRN Reason: Constipation Stop: 07/15/18 16:05 Memantine (Namenda) 5 mg PO DAILY [facility] Stop: 07/16/18 08:59 Last Admin: 05/18/18 09:22 Dose: 5 mg Mupirocin (Bactroban Oint) 1 appl NS BID [facility] Stop: 05/22/18 09:01 Last Admin: 05/18/18 09:14 Dose: 1 appl Nitroglycerin (Nitrostat) 0.4 mg SL Q5M PRN PRN Reason: Chest Pain Stop: 07/15/18 16:05 Simvastatin (Zocor) 20 mg PO HS [facility]; Protocol Stop: 07/15/18 20:59 Last Admin: 05/17/18 20:18 Dose: Not Given Temazepam (Restoril) 15 mg PO HS PRN; Protocol PRN Reason: Sleeplessness Stop: 07/15/18 16:05 Zolpidem Tartrate (Ambien) 5 mg PO HS PRN PRN Reason: Insomnia Stop: 07/15/18 16:05 General: No acute distress HEENT: Atraumatic Neck: Supple Cardiovascular: Regular rate, Normal S1, Normal S2 Lungs: Clear to auscultation Assessment/Plan - Plan Plan: cpm
--- NOTE | 2018-05-19 00:01 | Consultation ---
DATE OF CONSULTATION: 05/17/2018 REQUESTING PHYSICIAN FOR CONSULTATION: Dr. Paez. AGE: 77 years. SEX: Male. RACE: . HISTORY OF PRESENT ILLNESS: This patient who had been in [facility], reason for this is not clear, but the patient at the time of my evaluation is obtunded, not responding, lying fixed in the bed, no movement to the hands or legs and breathing on his own. The patient's vitals had been stable in the sense blood pressure is 132-140 systolic, diastolic 80 per minute. Jugular venous pressure is not raised. The skin turgor may be a little bit on the negative side. Neurologically, no response is available to voice, touch or any other stimulations. History available from the old records from [facility] reveals history of Parkinson's disease, history of dementia, history of craniotomy, history of brain stimulation and was inserted in the placement of an intracranial device for pain control by brain stimulation. There was a CT scan done, which states neural stimulating device is in place, unchanged in position and a stable CT of the head, unchanged from 02/28/2018. At present, the problems are very significant electrolyte changes. The patient is not awake and obtunded. BIOCHEMICAL DATA: Available has been as follows, sodium 156, potassium 3.9, chloride 119, CO2 content 27.7, BUN 88, creatinine 1.8, glucose 196, calcium 9.8, bilirubin normal. Liver enzymes are essentially normal. Total protein 7.2 and albumin 4.0 with globulin being 3.2. CBC done reveals hemoglobin of 16.0 grams percent, WBC count 15.9, platelet count 196. 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 This could be due to brain damage secondary to maybe that intracranial placement of stimulating device or could be from the previous injuries whatever this fellow has sustained. At present, the current treatment would be to put him on a D5W, at about 125-150 mL per hour and repeat the chemistry, since the patient looks like hemoconcentration that is why the hemoglobin has gone up to 16, same reason, the BUN and creatinine is high and that should improve. Would follow serially chemistries until it normalizes and then do some more urine studies, which has been already ordered. Other problems depend on the history except for what has been already stated, which included a craniotomy for placement of a stimulating device and we do not know what other clinical problems may be. JOB# [id number]
[2018-05-19] MEDS: Dextrose 5% 1,000 ML IV SCH ×2 (04:02→13:08)
[2018-05-19 07:18] LABS: % BASOPHILS 0.4 % (0.0-2.0); % EOSINOPHILS 1.2 % (0.0-5.0); % LYMPHOCYTES 13.7 % (20.0-50.0); % MONOCYTES 6.3 % (2.0-10.0); % NEUTROPHILS 78.4 % (40.0-80.0); EOSINOPHILE ABSOLUTE 0.1 Th/cmm (0.1-0.4); HEMATOCRIT 39.6 % (41.0-60); HEMOGLOBIN 13.4 gm/dL (12-16); LYMPHOCYTE ABSOLUTE 1.5 Th/cmm (1.5-3.0); MEAN CELL VOLUME 90.3 fl (80-99); MEAN CORPUSCULAR HEMOGLOBIN 30.6 pg (27.0-31.0); MEAN CORPUSCULAR HGB CONC 33.8 pg (28.0-36.0); MEAN PLATELET VOLUME 10.5 fl; MONOCYTE ABSOLUTE 0.7 Th/cmm (0.3-1.0); NEUTROPHILE ABSOLUTE 8.4 Th/cmm (1.8-8.0); PLATELET COUNT 153 Th/cmm (150-400); RED BLOOD COUNT 4.39 Mil/cmm (3.80-5.80); RED CELL DISTRIBUTION WIDTH 12.6 % (11.5-20.0); WHITE BLOOD COUNT 10.7 Th/cmm (4.8-10.8)
[2018-05-19 07:26] LABS: ALB/GLOB RATIO 1.2 (1.0-1.8); ALBUMIN 3.4 gm/dL (4.2-5.5); ALKALINE PHOSPHATASE 62 U/L (34-104); ANION GAP 10.6 (7.0-16.0); BILIRUBIN,TOTAL 1.1 mg/dL (0.3-1.0); BUN - UREA NITROGEN 43 mg/dL (7-25); CALCIUM SERUM 9.2 mg/dL (8.6-10.3); CARBON DIOXIDE 26.9 mEq/L (21.0-31.0); CHLORIDE 108 mEq/L (98-107); CREATININE - SERUM 1.1 mg/dL (0.7-1.3); GLUCOSE 165 mg/dL (70-105); POTASSIUM SERUM 3.5 mEq/L (3.5-5.1); SGOT 15 U/L (13-39); SGPT/ALT 7 U/L (7-52); SODIUM SERUM 142 mEq/L (136-145); TOTAL PROTEIN,SERUM 6.2 gm/dL (6.0-8.3)
[2018-05-19] MEDS: Lactobacillus Rhamnosus GG 15 Billion CFU CAP.SPRINK PO SCH (09:01)
[2018-05-19] MEDS ORDERED: Probiotic Screen MC PRN (12:55)
--- NOTE | 2018-05-19 15:31 | General Progress Note ---
Subjective - Review of Systems Events since last encounter: patient lethargic Objective - Results Result Diagrams: 05/19/18 05:40 05/19/18 05:40 Recent Labs: Laboratory Last Values WBC 10.7 Th/cmm (4.8-10.8) 05/19/18 05:40 RBC 4.39 Mil/cmm (3.80-5.80) 05/19/18 05:40 Hgb 13.4 gm/dL (12-16) 05/19/18 05:40 Hct 39.6 % (41.0-60) L 05/19/18 05:40 MCV 90.3 fl (80-99) 05/19/18 05:40 MCH 30.6 pg (27.0-31.0) 05/19/18 05:40 MCHC Differential 33.8 pg (28.0-36.0) 05/19/18 05:40 RDW 12.6 % (11.5-20.0) 05/19/18 05:40 Plt Count 153 Th/cmm (150-400) 05/19/18 05:40 MPV 10.5 fl 05/19/18 05:40 Add Manual Diff YES 05/17/18 05:05 Neutrophils % 78.4 % (40.0-80.0) 05/19/18 05:40 Band Neutrophils % 0 % (0-10) 05/17/18 05:05 Lymphocytes % 13.7 % (20.0-50.0) L 05/19/18 05:40 Monocytes % 6.3 % (2.0-10.0) 05/19/18 05:40 Eosinophils % 1.2 % (0.0-5.0) 05/19/18 05:40 Basophils % 0.4 % (0.0-2.0) 05/19/18 05:40 Neutrophils (Manual) 90 % (40-80) H 05/17/18 05:05 Lymphocytes 7 % (20-50) L 05/17/18 05:05 Monocytes 3 % (2-10) 05/17/18 05:05 Eosinophils 0 % (0-5) 05/17/18 05:05 Basophils 0 % (0-3) 05/17/18 05:05 Sodium 142 mEq/L (136-145) 05/19/18 05:40 Potassium 3.5 mEq/L (3.5-5.1) 05/19/18 05:40 Chloride 108 mEq/L (98-107) H 05/19/18 05:40 Carbon Dioxide 26.9 mEq/L (21.0-31.0) 05/19/18 05:40 Anion Gap 10.6 (7.0-16.0) 05/19/18 05:40 BUN 43 mg/dL (7-25) H 05/19/18 05:40 Creatinine 1.1 mg/dL (0.7-1.3) 05/19/18 05:40 Est GFR ( Amer) TNP 05/19/18 05:40 Est GFR (Non-Af Amer) TNP 05/19/18 05:40 BUN/Creatinine Ratio 39.1 05/19/18 05:40 Glucose 165 mg/dL (70-105) H 05/19/18 05:40 POC Glucose 183 MG/DL (70 - 105) H 05/19/18 11:43 Whole Bld Lactic Acid 1.37 mmol/L (0.60-1.99) 05/16/18 17:30 Calcium 9.2 mg/dL (8.6-10.3) 05/19/18 05:40 Magnesium 2.8 mg/dL (1.9-2.7) H 05/17/18 13:34 Total Bilirubin 1.1 mg/dL (0.3-1.0) H 05/19/18 05:40 AST 15 U/L (13-39) 05/19/18 05:40 ALT 7 U/L (7-52) 05/19/18 05:40 Alkaline Phosphatase 62 U/L (34-104) 05/19/18 05:40 Total Protein 6.2 gm/dL (6.0-8.3) 05/19/18 05:40 Albumin 3.4 gm/dL (4.2-5.5) L 05/19/18 05:40 Globulin 2.8 gm/dL 05/19/18 05:40 Albumin/Globulin Ratio 1.2 (1.0-1.8) 05/19/18 05:40 Urine Source CATH 05/17/18 15:45 Urine Color YELLOW 05/17/18 15:45 Urine Clarity CLEAR (CLEAR) 05/17/18 15:45 Urine pH 6.0 (4.6 - 8.0) 05/17/18 15:45 Ur Specific [place] 1.010 (1.005-1.030) 05/17/18 15:45 Urine Protein TRACE mg/dL (NEGATIVE) 05/17/18 15:45 Urine Glucose (UA) >=1000 mg/dL (NEGATIVE) H 05/17/18 15:45 Urine Ketones NEGATIVE mg/dL (NEGATIVE) 05/17/18 15:45 Urine Blood MODERATE (NEGATIVE) H 05/17/18 15:45 Urine Nitrate NEGATIVE (NEGATIVE) 05/17/18 15:45 Urine Bilirubin NEGATIVE (NEGATIVE) 05/17/18 15:45 Urine Urobilinogen 0.2 E.U./dL (0.2 - 1.0) 05/17/18 15:45 Ur Leukocyte Esterase NEGATIVE (NEGATIVE) 05/17/18 15:45 Urine RBC 5-10 /hpf (0-5) H 05/17/18 15:45 Urine WBC 0-2 /hpf (0-5) 05/17/18 15:45 Ur Epithelial Cells FEW /lpf (FEW) 05/17/18 15:45 Urine Bacteria 1+ /hpf (NONE SEEN) H 05/17/18 15:45 Fine Granular Casts 0-2 /lpf (NONE SEEN) H 05/17/18 15:45 Urine Mucus FEW /lpf (FEW) 05/17/18 15:45 Ur Random Sodium 35 mmol/L 05/17/18 15:45 Urine Creatinine 83.0 mg/dl (39.0-259.0) 05/17/18 15:45 - Physical Exam Vitals and I&O: Vital Signs Temp 97.7 F 05/19/18 12:02 Pulse 65 05/19/18 12:02 Resp 18 05/19/18 12:02 BP 120/62 05/19/18 12:02 Pulse Ox 97 05/19/18 12:02 Intake & Output 05/18/18 05/19/18 05/19/18 18:59 06:59 18:59 Intake Total 1000 2031.25 1000 Output Total 250 500 Balance 750 1531.25 1000 Weight (lbs) 51.71 kg 53.524 kg Intake: Intake, IV Amount 1000 1931.25 1000 Dextrose 5% 1,000 ml @ 1000 1931.25 1000 125 mls/hr IV .Q8H [facility] Rx #:[id number] Oral 100 Output: Urine 250 500 Other: # Voids 3 Weight Source Bedscale Bedscale Active Medications: Current Medications Acetaminophen (Tylenol) 650 mg PO Q4HR PRN PRN Reason: Mild Pain / Temp above 100 Stop: 07/15/18 16:05 Amlodipine Besylate (Norvasc) 2.5 mg PO DAILY [facility] Stop: 07/16/18 08:59 Last Admin: 05/19/18 09:00 Dose: 2.5 mg Carbidopa/Levodopa (Sinemet 25mg-100 Mg) 1 tab PO Q6HR [facility] Stop: 07/15/18 17:59 Last Admin: 05/19/18 13:07 Dose: 1 tab Entacapone (Comtan) 200 mg PO Q6HR [facility] Stop: 07/15/18 17:59 Last Admin: 05/19/18 13:07 Dose: 200 mg Escitalopram Oxalate (Lexapro) 10 mg PO DAILY [facility]; Protocol Stop: 07/16/18 08:59 Gabapentin (Neurontin) 100 mg PO BID [facility] Stop: 07/15/18 16:59 Last Admin: 05/19/18 09:01 Dose: 100 mg Levofloxacin (Levaquin Pb) 500 mg in 100 mls @ 100 mls/hr IV Q24HR [facility] Stop: 07/15/18 16:59 Last Infusion: 05/17/18 18:02 Dose: Infused Dextrose (D5w) 1,000 mls @ 125 mls/hr IV .Q8H [facility] Stop: 07/16/18 13:25 Last Admin: 05/19/18 13:08 Dose: 125 mls/hr Lactobacillus Rhamnosus (Culturelle 15b) 1 each PO DAILY [facility] Stop: 07/16/18 08:59 Last Admin: 05/19/18 09:01 Dose: 1 each Lorazepam (Ativan) 0.5 mg PO Q4HR PRN; Protocol PRN Reason: Anxiety Stop: 07/15/18 16:05 Magnesium Hydroxide (Milk Of Magnesia) 30 ml PO HS PRN PRN Reason: Constipation Stop: 07/15/18 16:05 Memantine (Namenda) 5 mg PO DAILY [facility] Stop: 07/16/18 08:59 Last Admin: 05/19/18 09:01 Dose: 5 mg Miscellaneous (Probiotic Screen) 1 ea [facility] PRN PRN PRN Reason: PROTOCOL Stop: 07/18/18 12:54 Mupirocin (Bactroban Oint) 1 appl NS BID [facility] Stop: 05/22/18 09:01 Last Admin: 05/19/18 09:01 Dose: 1 appl Nitroglycerin (Nitrostat) 0.4 mg SL Q5M PRN PRN Reason: Chest Pain Stop: 07/15/18 16:05 Simvastatin (Zocor) 20 mg PO HS [facility]; Protocol Stop: 07/15/18 20:59 Last Admin: 05/18/18 20:22 Dose: 20 mg Temazepam (Restoril) 15 mg PO HS PRN; Protocol PRN Reason: Sleeplessness Stop: 07/15/18 16:05 Zolpidem Tartrate (Ambien) 5 mg PO HS PRN PRN Reason: Insomnia Stop: 07/15/18 20:59 General: No acute distress HEENT: Atraumatic Neck: Supple Cardiovascular: Regular rate, Normal S1, Normal S2 Lungs: Clear to auscultation Assessment/Plan - Plan Plan: cpm
[2018-05-19] MEDS: Levofloxacin 500mg/100mL 500 MG/100 ML BAG IV SCH (16:06)
[2018-05-19 16:13] LABS: INR 0.99 (0.5-1.4); PROTHROMBIN TIME (TEST) 10.3 SECONDS (9.5-11.5)
--- NOTE | 2018-05-19 18:10 | Consultation ---
DATE OF CONSULTATION: 05/19/2018 INPATIENT GASTROINTESTINAL CONSULTATION REFERRING PHYSICIAN: Dr. Paez. REASON FOR CONSULTATION: Failure to thrive. HISTORY OF PRESENT ILLNESS: A 77-year-old male who was brought into the hospital because of failure to thrive. The patient is otherwise a poor historian. He apparently had a swallow evaluation and apparently failed it. PAST MEDICAL HISTORY: Osteoarthritis, hypertension, Parkinson's disease, hyperlipidemia, and dementia. PAST SURGICAL HISTORY: Unknown. FAMILY HISTORY: Noncontributory. SOCIAL HISTORY: Resident of [facility] facility. ALLERGIES: None. CURRENT MEDICATIONS: Tylenol, Norvasc, Sinemet, Comtan, Lexapro, Neurontin, Levaquin, Ativan, milk of magnesia, Namenda, Nitrostat, Zocor, Restoril, and Ambien. REVIEW OF SYSTEMS: Unobtainable. PHYSICAL EXAMINATION: VITAL SIGNS: Temperature 97.7, breathing 18, pulse of 65, blood pressure 120/62, and satting 97%. GENERAL: In no apparent distress. EYES: Anicteric. Normal conjunctivae. HEENT: Normocephalic, atraumatic. Moist mucous membranes. NECK: Soft, supple. CHEST: Clear. No effort. CARDIOVASCULAR: Regular rate and rhythm. ABDOMEN: Soft, nontender, nondistended. SKIN: Warm, dry. EXTREMITIES: Reveal no cyanosis. PSYCHOLOGICAL: Somnolent. LABORATORY DATA: Show white count 10.7, hemoglobin 13.4, and platelets of 153. IMPRESSION: A 77-year-old male with failure to thrive, dysphagia, likely from a central etiology. The patient will likely benefit from having a PEG. This can be done when consent has been achieved. Looking through the demographic information on this patient, there are no family members to contact for a listed conservator. PLAN: 1. Continue supportive care. 2. Continue NG tube. 3. Consider TPN. 4. PEG can be done when consent has been obtained. Thank you for allowing me to participate. Please call me if any questions. JOB# [id number]
[2018-05-19] MEDS ORDERED: KCL 20mEq/100mL Premix 20 MEQ/100 ML PIGGYBACK IV ONE (20:00)
[2018-05-20] MEDS: Dextrose 5% 1,000 ML IV SCH ×2 (00:55→17:49)
[2018-05-20 07:09] LABS: ALB/GLOB RATIO 1.3 (1.0-1.8); ALBUMIN 3.3 gm/dL (4.2-5.5); ALKALINE PHOSPHATASE 63 U/L (34-104); ANION GAP 10.2 (7.0-16.0); BILIRUBIN,TOTAL 0.9 mg/dL (0.3-1.0); BUN - UREA NITROGEN 30 mg/dL (7-25); CALCIUM SERUM 9.1 mg/dL (8.6-10.3); CARBON DIOXIDE 25.6 mEq/L (21.0-31.0); CHLORIDE 106 mEq/L (98-107); GLUCOSE 139 mg/dL (70-105); HEMATOCRIT 38.5 % (41.0-60); HEMOGLOBIN 12.7 gm/dL (12-16); MEAN CELL VOLUME 91.3 fl (80-99); MEAN CORPUSCULAR HEMOGLOBIN 30.2 pg (27.0-31.0); MEAN PLATELET VOLUME 11.3 fl; POTASSIUM SERUM 3.8 mEq/L (3.5-5.1); RED BLOOD COUNT 4.22 Mil/cmm (3.80-5.80); RED CELL DISTRIBUTION WIDTH 12.1 % (11.5-20.0); SGOT 15 U/L (13-39); SGPT/ALT 10 U/L (7-52); SODIUM SERUM 138 mEq/L (136-145); TOTAL PROTEIN,SERUM 5.9 gm/dL (6.0-8.3); WHITE BLOOD COUNT 9.2 Th/cmm (4.8-10.8)
[2018-05-20 07:39] LABS: BAND NEUTROPHILE 1 % (0-10); BASOPHIL 0 % (0-3); EOSINOPHIL 0 % (0-5); LYMPHOCYTE 12 % (20-50); MONOCYTE 7 % (2-10); NEUTROPHILS 80 % (40-80); PLATELET COUNT 175 Th/cmm (150-400)
[2018-05-20] MEDS: Lactobacillus Rhamnosus GG 15 Billion CFU CAP.SPRINK PO SCH (09:34)
--- NOTE | 2018-05-20 15:19 | GI Progress Note ---
Subjective - Review of Systems Subjective: NO EVENTS Objective - Results Result Diagrams: 05/20/18 05:30 05/20/18 05:30 Recent Labs: Laboratory Last Values WBC 9.2 Th/cmm (4.8-10.8) 05/20/18 05:30 RBC 4.22 Mil/cmm (3.80-5.80) 05/20/18 05:30 Hgb 12.7 gm/dL (12-16) 05/20/18 05:30 Hct 38.5 % (41.0-60) L 05/20/18 05:30 MCV 91.3 fl (80-99) 05/20/18 05:30 MCH 30.2 pg (27.0-31.0) 05/20/18 05:30 MCHC Differential 33.0 pg (28.0-36.0) 05/20/18 05:30 RDW 12.1 % (11.5-20.0) 05/20/18 05:30 Plt Count 175 Th/cmm (150-400) 05/20/18 05:30 MPV 11.3 fl 05/20/18 05:30 Add Manual Diff YES 05/20/18 05:30 Neutrophils % 78.4 % (40.0-80.0) 05/19/18 05:40 Band Neutrophils % 1 % (0-10) 05/20/18 05:30 Lymphocytes % 13.7 % (20.0-50.0) L 05/19/18 05:40 Monocytes % 6.3 % (2.0-10.0) 05/19/18 05:40 Eosinophils % 1.2 % (0.0-5.0) 05/19/18 05:40 Basophils % 0.4 % (0.0-2.0) 05/19/18 05:40 Neutrophils (Manual) 80 % (40-80) 05/20/18 05:30 Lymphocytes 12 % (20-50) L 05/20/18 05:30 Monocytes 7 % (2-10) 05/20/18 05:30 Eosinophils 0 % (0-5) 05/20/18 05:30 Basophils 0 % (0-3) 05/20/18 05:30 PT 10.3 SECONDS (9.5-11.5) 05/19/18 05:40 INR 0.99 (0.5-1.4) 05/19/18 05:40 Sodium 138 mEq/L (136-145) 05/20/18 05:30 Potassium 3.8 mEq/L (3.5-5.1) 05/20/18 05:30 Chloride 106 mEq/L (98-107) 05/20/18 05:30 Carbon Dioxide 25.6 mEq/L (21.0-31.0) 05/20/18 05:30 Anion Gap 10.2 (7.0-16.0) 05/20/18 05:30 BUN 30 mg/dL (7-25) H 05/20/18 05:30 Creatinine 1.0 mg/dL (0.7-1.3) 05/20/18 05:30 Est GFR ( Amer) TNP 05/20/18 05:30 Est GFR (Non-Af Amer) TNP 05/20/18 05:30 BUN/Creatinine Ratio 30.0 05/20/18 05:30 Glucose 139 mg/dL (70-105) H 05/20/18 05:30 POC Glucose 183 MG/DL (70 - 105) H 05/19/18 11:43 Whole Bld Lactic Acid 1.37 mmol/L (0.60-1.99) 05/16/18 17:30 Calcium 9.1 mg/dL (8.6-10.3) 05/20/18 05:30 Magnesium 2.8 mg/dL (1.9-2.7) H 05/17/18 13:34 Total Bilirubin 0.9 mg/dL (0.3-1.0) 05/20/18 05:30 AST 15 U/L (13-39) 05/20/18 05:30 ALT 10 U/L (7-52) 05/20/18 05:30 Alkaline Phosphatase 63 U/L (34-104) 05/20/18 05:30 Total Protein 5.9 gm/dL (6.0-8.3) L 05/20/18 05:30 Albumin 3.3 gm/dL (4.2-5.5) L 05/20/18 05:30 Globulin 2.6 gm/dL 05/20/18 05:30 Albumin/Globulin Ratio 1.3 (1.0-1.8) 05/20/18 05:30 Urine Source CATH 05/17/18 15:45 Urine Color YELLOW 05/17/18 15:45 Urine Clarity CLEAR (CLEAR) 05/17/18 15:45 Urine pH 6.0 (4.6 - 8.0) 05/17/18 15:45 Ur Specific [place] 1.010 (1.005-1.030) 05/17/18 15:45 Urine Protein TRACE mg/dL (NEGATIVE) 05/17/18 15:45 Urine Glucose (UA) >=1000 mg/dL (NEGATIVE) H 05/17/18 15:45 Urine Ketones NEGATIVE mg/dL (NEGATIVE) 05/17/18 15:45 Urine Blood MODERATE (NEGATIVE) H 05/17/18 15:45 Urine Nitrate NEGATIVE (NEGATIVE) 05/17/18 15:45 Urine Bilirubin NEGATIVE (NEGATIVE) 05/17/18 15:45 Urine Urobilinogen 0.2 E.U./dL (0.2 - 1.0) 05/17/18 15:45 Ur Leukocyte Esterase NEGATIVE (NEGATIVE) 05/17/18 15:45 Urine RBC 5-10 /hpf (0-5) H 05/17/18 15:45 Urine WBC 0-2 /hpf (0-5) 05/17/18 15:45 Ur Epithelial Cells FEW /lpf (FEW) 05/17/18 15:45 Urine Bacteria 1+ /hpf (NONE SEEN) H 05/17/18 15:45 Fine Granular Casts 0-2 /lpf (NONE SEEN) H 05/17/18 15:45 Urine Mucus FEW /lpf (FEW) 05/17/18 15:45 Urine Osmolality 757 mOsmol/kg 05/17/18 15:45 Ur Random Sodium 35 mmol/L 05/17/18 15:45 Urine Creatinine 83.0 mg/dl (39.0-259.0) 05/17/18 15:45 - Physical Exam Vitals and I&O: Vital Signs Temp 98.4 F 05/20/18 12:00 Pulse 71 05/20/18 12:00 Resp 20 05/20/18 12:00 BP 128/54 05/20/18 12:00 Pulse Ox 99 05/20/18 12:00 Intake & Output 05/19/18 05/20/18 05/20/18 18:59 06:59 18:59 Intake Total 1100 1000 Output Total 500 1300 Balance 600 -300 Weight (lbs) 53.524 kg 53.524 kg Intake: Intake, IV Amount 1000 1000 Dextrose 5% 1,000 ml @ 1000 1000 125 mls/hr IV .Q8H [facility] Rx #:[id number] Oral 100 0 Output: Urine 500 1300 Other: # Bowel Movements 0 Weight Source Bedscale Bedscale Active Medications: Current Medications Acetaminophen (Tylenol) 650 mg PO Q4HR PRN PRN Reason: Mild Pain / Temp above 100 Stop: 07/15/18 16:05 Amlodipine Besylate (Norvasc) 2.5 mg PO DAILY [facility] Stop: 07/16/18 08:59 Last Admin: 05/20/18 09:33 Dose: Not Given Carbidopa/Levodopa (Sinemet 25mg-100 Mg) 1 tab PO Q6HR [facility] Stop: 07/15/18 17:59 Last Admin: 05/20/18 12:41 Dose: Not Given Entacapone (Comtan) 200 mg PO Q6HR [facility] Stop: 07/15/18 17:59 Last Admin: 05/20/18 12:41 Dose: Not Given Escitalopram Oxalate (Lexapro) 10 mg PO DAILY [facility]; Protocol Stop: 07/16/18 08:59 Gabapentin (Neurontin) 100 mg PO BID [facility] Stop: 07/15/18 16:59 Last Admin: 05/20/18 09:33 Dose: Not Given Levofloxacin (Levaquin Pb) 500 mg in 100 mls @ 100 mls/hr IV Q24HR [facility] Stop: 07/15/18 16:59 Last Admin: 05/19/18 16:06 Dose: 100 mls/hr Dextrose (D5w) 1,000 mls @ 125 mls/hr IV .Q8H [facility] Stop: 07/16/18 13:25 Last Admin: 05/20/18 00:55 Dose: 125 mls/hr Lactobacillus Rhamnosus (Culturelle 15b) 1 each PO DAILY [facility] Stop: 07/16/18 08:59 Last Admin: 05/20/18 09:34 Dose: Not Given Lorazepam (Ativan) 0.5 mg PO Q4HR PRN; Protocol PRN Reason: Anxiety Stop: 07/15/18 16:05 Magnesium Hydroxide (Milk Of Magnesia) 30 ml PO HS PRN PRN Reason: Constipation Stop: 07/15/18 16:05 Memantine (Namenda) 5 mg PO DAILY [facility] Stop: 07/16/18 08:59 Last Admin: 05/20/18 09:34 Dose: Not Given Miscellaneous (Probiotic Screen) 1 ea MC PRN PRN PRN Reason: PROTOCOL Stop: 07/18/18 12:54 Mupirocin (Bactroban Oint) 1 appl NS BID [facility] Stop: 05/22/18 09:01 Last Admin: 05/20/18 09:41 Dose: 1 appl Nitroglycerin (Nitrostat) 0.4 mg SL Q5M PRN PRN Reason: Chest Pain Stop: 07/15/18 16:05 Simvastatin (Zocor) 20 mg PO HS [facility]; Protocol Stop: 07/15/18 20:59 Last Admin: 05/19/18 20:18 Dose: Not Given Temazepam (Restoril) 15 mg PO HS PRN; Protocol PRN Reason: Sleeplessness Stop: 07/15/18 16:05 Zolpidem Tartrate (Ambien) 5 mg PO HS PRN PRN Reason: Insomnia Stop: 07/15/18 20:59 General: No acute distress HEENT: Atraumatic Neck: Supple Cardiovascular: Regular rate, Normal S1, Normal S2 Lungs: Clear to auscultation Assessment/Plan - Assessment Assessment: 77 YO MALE WITH FAILURE TO THRIVE AND DYSPHAGIA 1.CONSIDER PEG WHEN CONSENT 2.CONT SUPP CARE 3.CONSIDER NGT FEEDS
[2018-05-20] MEDS: Levofloxacin 500mg/100mL 500 MG/100 ML BAG IV SCH (17:51)
[2018-05-21] MEDS: Dextrose 5% 1,000 ML IV SCH ×2 (02:02→11:13)
[2018-05-21 06:14] LABS: ALB/GLOB RATIO 1.2 (1.0-1.8); ALBUMIN 3.2 gm/dL (4.2-5.5); ALKALINE PHOSPHATASE 65 U/L (34-104); ANION GAP 9.1 (7.0-16.0); BILIRUBIN,TOTAL 0.7 mg/dL (0.3-1.0); BUN - UREA NITROGEN 22 mg/dL (7-25); CARBON DIOXIDE 27.6 mEq/L (21.0-31.0); CHLORIDE 103 mEq/L (98-107); GLUCOSE 142 mg/dL (70-105); POTASSIUM SERUM 3.7 mEq/L (3.5-5.1); SGOT 15 U/L (13-39); SGPT/ALT 5 U/L (7-52); SODIUM SERUM 136 mEq/L (136-145); TOTAL PROTEIN,SERUM 5.8 gm/dL (6.0-8.3)
--- NOTE | 2018-05-21 07:58 | GI Progress Note ---
Subjective - Review of Systems Subjective: NO EVENTS Objective - Results Result Diagrams: 05/20/18 05:30 05/21/18 05:50 Recent Labs: Laboratory Last Values WBC 9.2 Th/cmm (4.8-10.8) 05/20/18 05:30 RBC 4.22 Mil/cmm (3.80-5.80) 05/20/18 05:30 Hgb 12.7 gm/dL (12-16) 05/20/18 05:30 Hct 38.5 % (41.0-60) L 05/20/18 05:30 MCV 91.3 fl (80-99) 05/20/18 05:30 MCH 30.2 pg (27.0-31.0) 05/20/18 05:30 MCHC Differential 33.0 pg (28.0-36.0) 05/20/18 05:30 RDW 12.1 % (11.5-20.0) 05/20/18 05:30 Plt Count 175 Th/cmm (150-400) 05/20/18 05:30 MPV 11.3 fl 05/20/18 05:30 Add Manual Diff YES 05/20/18 05:30 Neutrophils % 78.4 % (40.0-80.0) 05/19/18 05:40 Band Neutrophils % 1 % (0-10) 05/20/18 05:30 Lymphocytes % 13.7 % (20.0-50.0) L 05/19/18 05:40 Monocytes % 6.3 % (2.0-10.0) 05/19/18 05:40 Eosinophils % 1.2 % (0.0-5.0) 05/19/18 05:40 Basophils % 0.4 % (0.0-2.0) 05/19/18 05:40 Neutrophils (Manual) 80 % (40-80) 05/20/18 05:30 Lymphocytes 12 % (20-50) L 05/20/18 05:30 Monocytes 7 % (2-10) 05/20/18 05:30 Eosinophils 0 % (0-5) 05/20/18 05:30 Basophils 0 % (0-3) 05/20/18 05:30 PT 10.3 SECONDS (9.5-11.5) 05/19/18 05:40 INR 0.99 (0.5-1.4) 05/19/18 05:40 Sodium 136 mEq/L (136-145) 05/21/18 05:50 Potassium 3.7 mEq/L (3.5-5.1) 05/21/18 05:50 Chloride 103 mEq/L (98-107) 05/21/18 05:50 Carbon Dioxide 27.6 mEq/L (21.0-31.0) 05/21/18 05:50 Anion Gap 9.1 (7.0-16.0) 05/21/18 05:50 BUN 22 mg/dL (7-25) 05/21/18 05:50 Creatinine 1.0 mg/dL (0.7-1.3) 05/21/18 05:50 Est GFR ( Amer) TNP 05/21/18 05:50 Est GFR (Non-Af Amer) TNP 05/21/18 05:50 BUN/Creatinine Ratio 22.0 05/21/18 05:50 Glucose 142 mg/dL (70-105) H 05/21/18 05:50 POC Glucose 183 MG/DL (70 - 105) H 05/19/18 11:43 Whole Bld Lactic Acid 1.37 mmol/L (0.60-1.99) 05/16/18 17:30 Calcium 9.0 mg/dL (8.6-10.3) 05/21/18 05:50 Magnesium 2.8 mg/dL (1.9-2.7) H 05/17/18 13:34 Total Bilirubin 0.7 mg/dL (0.3-1.0) 05/21/18 05:50 AST 15 U/L (13-39) 05/21/18 05:50 ALT 5 U/L (7-52) L 05/21/18 05:50 Alkaline Phosphatase 65 U/L (34-104) 05/21/18 05:50 Total Protein 5.8 gm/dL (6.0-8.3) L 05/21/18 05:50 Albumin 3.2 gm/dL (4.2-5.5) L 05/21/18 05:50 Globulin 2.6 gm/dL 05/21/18 05:50 Albumin/Globulin Ratio 1.2 (1.0-1.8) 05/21/18 05:50 Urine Source CATH 05/17/18 15:45 Urine Color YELLOW 05/17/18 15:45 Urine Clarity CLEAR (CLEAR) 05/17/18 15:45 Urine pH 6.0 (4.6 - 8.0) 05/17/18 15:45 Ur Specific [place] 1.010 (1.005-1.030) 05/17/18 15:45 Urine Protein TRACE mg/dL (NEGATIVE) 05/17/18 15:45 Urine Glucose (UA) >=1000 mg/dL (NEGATIVE) H 05/17/18 15:45 Urine Ketones NEGATIVE mg/dL (NEGATIVE) 05/17/18 15:45 Urine Blood MODERATE (NEGATIVE) H 05/17/18 15:45 Urine Nitrate NEGATIVE (NEGATIVE) 05/17/18 15:45 Urine Bilirubin NEGATIVE (NEGATIVE) 05/17/18 15:45 Urine Urobilinogen 0.2 E.U./dL (0.2 - 1.0) 05/17/18 15:45 Ur Leukocyte Esterase NEGATIVE (NEGATIVE) 05/17/18 15:45 Urine RBC 5-10 /hpf (0-5) H 05/17/18 15:45 Urine WBC 0-2 /hpf (0-5) 05/17/18 15:45 Ur Epithelial Cells FEW /lpf (FEW) 05/17/18 15:45 Urine Bacteria 1+ /hpf (NONE SEEN) H 05/17/18 15:45 Fine Granular Casts 0-2 /lpf (NONE SEEN) H 05/17/18 15:45 Urine Mucus FEW /lpf (FEW) 05/17/18 15:45 Urine Osmolality 757 mOsmol/kg 05/17/18 15:45 Ur Random Sodium 35 mmol/L 05/17/18 15:45 Urine Creatinine 83.0 mg/dl (39.0-259.0) 05/17/18 15:45 - Physical Exam Vitals and I&O: Vital Signs Temp 98.4 F 05/21/18 04:00 Pulse 62 05/21/18 04:00 Resp 18 05/21/18 04:00 BP 106/60 05/21/18 04:00 Pulse Ox 98 05/21/18 04:00 Intake & Output 05/20/18 05/21/18 05/21/18 18:59 06:59 18:59 Intake Total 1000 1360 Output Total 1050 1900 Balance -50 -540 Weight (lbs) 54.431 kg 54.431 kg Intake: Intake, IV Amount 1000 1000 Dextrose 5% 1,000 ml @ 1000 1000 125 mls/hr IV .Q8H [facility] Rx #:[id number] Oral 0 Tube Feeding 240 Other 120 Output: Urine 1050 1900 Other: # Bowel Movements 0 Weight Source Bedscale Estimated Active Medications: Current Medications Acetaminophen (Tylenol) 650 mg PO Q4HR PRN PRN Reason: Mild Pain / Temp above 100 Stop: 07/15/18 16:05 Amlodipine Besylate (Norvasc) 2.5 mg PO DAILY [facility] Stop: 07/16/18 08:59 Last Admin: 05/20/18 09:33 Dose: Not Given Carbidopa/Levodopa (Sinemet 25mg-100 Mg) 1 tab PO Q6HR [facility] Stop: 07/15/18 17:59 Last Admin: 05/21/18 06:01 Dose: 1 tab Entacapone (Comtan) 200 mg PO Q6HR [facility] Stop: 07/15/18 17:59 Last Admin: 05/21/18 06:00 Dose: 200 mg Escitalopram Oxalate (Lexapro) 10 mg PO DAILY [facility]; Protocol Stop: 07/16/18 08:59 Gabapentin (Neurontin) 100 mg PO BID [facility] Stop: 07/15/18 16:59 Last Admin: 05/20/18 17:49 Dose: 100 mg Levofloxacin (Levaquin Pb) 500 mg in 100 mls @ 100 mls/hr IV Q24HR [facility] Stop: 07/15/18 16:59 Last Admin: 05/20/18 17:51 Dose: 100 mls/hr Dextrose (D5w) 1,000 mls @ 125 mls/hr IV .Q8H [facility] Stop: 07/16/18 13:25 Last Admin: 05/21/18 02:02 Dose: 125 mls/hr Lactobacillus Rhamnosus (Culturelle 15b) 1 each PO DAILY [facility] Stop: 07/16/18 08:59 Last Admin: 05/20/18 09:34 Dose: Not Given Lorazepam (Ativan) 0.5 mg PO Q4HR PRN; Protocol PRN Reason: Anxiety Stop: 07/15/18 16:05 Magnesium Hydroxide (Milk Of Magnesia) 30 ml PO HS PRN PRN Reason: Constipation Stop: 07/15/18 16:05 Memantine (Namenda) 5 mg PO DAILY [facility] Stop: 07/16/18 08:59 Last Admin: 05/20/18 09:34 Dose: Not Given Miscellaneous (Probiotic Screen) 1 ea MC PRN PRN PRN Reason: PROTOCOL Stop: 07/18/18 12:54 Mupirocin (Bactroban Oint) 1 appl NS BID [facility] Stop: 05/22/18 09:01 Last Admin: 05/20/18 17:49 Dose: 1 appl Nitroglycerin (Nitrostat) 0.4 mg SL Q5M PRN PRN Reason: Chest Pain Stop: 07/15/18 16:05 Simvastatin (Zocor) 20 mg PO HS [facility]; Protocol Stop: 07/15/18 20:59 Last Admin: 05/20/18 20:45 Dose: 20 mg Temazepam (Restoril) 15 mg PO HS PRN; Protocol PRN Reason: Sleeplessness Stop: 07/15/18 16:05 Zolpidem Tartrate (Ambien) 5 mg PO HS PRN PRN Reason: Insomnia Stop: 07/15/18 20:59 General: No acute distress HEENT: Atraumatic Neck: Supple Cardiovascular: Regular rate, Normal S1, Normal S2 Lungs: Clear to auscultation Assessment/Plan - Assessment Assessment: 77 YO MALE WITH FAILURE TO THRIVE AND DYSPHAGIA 1.CONSIDER PEG WHEN CONSENT 2.CONT SUPP CARE 3.CONT NGT FOR NOW
[2018-05-21] MEDS: Lactobacillus Rhamnosus GG 15 Billion CFU CAP.SPRINK PO SCH (09:31)
--- NOTE | 2018-05-21 10:12 | Diagnostic Imaging Report ---
Portable chest x-ray HISTORY: Shortness of breath, nasogastric tube placement Compared to prior exam of 05/16/2018, nasogastric tube is been inserted. The tip projects over the upper fundal region. The sidehole is above the diaphragm. This should be advanced approximately 6.0 cm. No change in pulmonary status. IMPRESSION: 1. Nasogastric tube tip projecting over the upper fundal region of the stomach. THIS SHOULD BE ADVANCED APPROXIMATE 6.0 CM.
--- NOTE | 2018-05-21 12:21 | General Progress Note ---
Subjective - Review of Systems Events since last encounter: no change no fever Objective - Results Result Diagrams: 05/20/18 05:30 05/21/18 05:50 Recent Labs: Laboratory Last Values WBC 9.2 Th/cmm (4.8-10.8) 05/20/18 05:30 RBC 4.22 Mil/cmm (3.80-5.80) 05/20/18 05:30 Hgb 12.7 gm/dL (12-16) 05/20/18 05:30 Hct 38.5 % (41.0-60) L 05/20/18 05:30 MCV 91.3 fl (80-99) 05/20/18 05:30 MCH 30.2 pg (27.0-31.0) 05/20/18 05:30 MCHC Differential 33.0 pg (28.0-36.0) 05/20/18 05:30 RDW 12.1 % (11.5-20.0) 05/20/18 05:30 Plt Count 175 Th/cmm (150-400) 05/20/18 05:30 MPV 11.3 fl 05/20/18 05:30 Add Manual Diff YES 05/20/18 05:30 Neutrophils % 78.4 % (40.0-80.0) 05/19/18 05:40 Band Neutrophils % 1 % (0-10) 05/20/18 05:30 Lymphocytes % 13.7 % (20.0-50.0) L 05/19/18 05:40 Monocytes % 6.3 % (2.0-10.0) 05/19/18 05:40 Eosinophils % 1.2 % (0.0-5.0) 05/19/18 05:40 Basophils % 0.4 % (0.0-2.0) 05/19/18 05:40 Neutrophils (Manual) 80 % (40-80) 05/20/18 05:30 Lymphocytes 12 % (20-50) L 05/20/18 05:30 Monocytes 7 % (2-10) 05/20/18 05:30 Eosinophils 0 % (0-5) 05/20/18 05:30 Basophils 0 % (0-3) 05/20/18 05:30 PT 10.3 SECONDS (9.5-11.5) 05/19/18 05:40 INR 0.99 (0.5-1.4) 05/19/18 05:40 Sodium 136 mEq/L (136-145) 05/21/18 05:50 Potassium 3.7 mEq/L (3.5-5.1) 05/21/18 05:50 Chloride 103 mEq/L (98-107) 05/21/18 05:50 Carbon Dioxide 27.6 mEq/L (21.0-31.0) 05/21/18 05:50 Anion Gap 9.1 (7.0-16.0) 05/21/18 05:50 BUN 22 mg/dL (7-25) 05/21/18 05:50 Creatinine 1.0 mg/dL (0.7-1.3) 05/21/18 05:50 Est GFR ( Amer) TNP 05/21/18 05:50 Est GFR (Non-Af Amer) TNP 05/21/18 05:50 BUN/Creatinine Ratio 22.0 05/21/18 05:50 Glucose 142 mg/dL (70-105) H 05/21/18 05:50 POC Glucose 183 MG/DL (70 - 105) H 05/19/18 11:43 Whole Bld Lactic Acid 1.37 mmol/L (0.60-1.99) 05/16/18 17:30 Calcium 9.0 mg/dL (8.6-10.3) 05/21/18 05:50 Magnesium 2.8 mg/dL (1.9-2.7) H 05/17/18 13:34 Total Bilirubin 0.7 mg/dL (0.3-1.0) 05/21/18 05:50 AST 15 U/L (13-39) 05/21/18 05:50 ALT 5 U/L (7-52) L 05/21/18 05:50 Alkaline Phosphatase 65 U/L (34-104) 05/21/18 05:50 Total Protein 5.8 gm/dL (6.0-8.3) L 05/21/18 05:50 Albumin 3.2 gm/dL (4.2-5.5) L 05/21/18 05:50 Globulin 2.6 gm/dL 05/21/18 05:50 Albumin/Globulin Ratio 1.2 (1.0-1.8) 05/21/18 05:50 Urine Source CATH 05/17/18 15:45 Urine Color YELLOW 05/17/18 15:45 Urine Clarity CLEAR (CLEAR) 05/17/18 15:45 Urine pH 6.0 (4.6 - 8.0) 05/17/18 15:45 Ur Specific [place] 1.010 (1.005-1.030) 05/17/18 15:45 Urine Protein TRACE mg/dL (NEGATIVE) 05/17/18 15:45 Urine Glucose (UA) >=1000 mg/dL (NEGATIVE) H 05/17/18 15:45 Urine Ketones NEGATIVE mg/dL (NEGATIVE) 05/17/18 15:45 Urine Blood MODERATE (NEGATIVE) H 05/17/18 15:45 Urine Nitrate NEGATIVE (NEGATIVE) 05/17/18 15:45 Urine Bilirubin NEGATIVE (NEGATIVE) 05/17/18 15:45 Urine Urobilinogen 0.2 E.U./dL (0.2 - 1.0) 05/17/18 15:45 Ur Leukocyte Esterase NEGATIVE (NEGATIVE) 05/17/18 15:45 Urine RBC 5-10 /hpf (0-5) H 05/17/18 15:45 Urine WBC 0-2 /hpf (0-5) 05/17/18 15:45 Ur Epithelial Cells FEW /lpf (FEW) 05/17/18 15:45 Urine Bacteria 1+ /hpf (NONE SEEN) H 05/17/18 15:45 Fine Granular Casts 0-2 /lpf (NONE SEEN) H 05/17/18 15:45 Urine Mucus FEW /lpf (FEW) 05/17/18 15:45 Urine Osmolality 757 mOsmol/kg 05/17/18 15:45 Ur Random Sodium 35 mmol/L 05/17/18 15:45 Urine Creatinine 83.0 mg/dl (39.0-259.0) 05/17/18 15:45 - Physical Exam Vitals and I&O: Vital Signs Temp 98.0 F 05/21/18 11:54 Pulse 65 05/21/18 11:54 Resp 18 05/21/18 11:54 BP 107/55 05/21/18 11:54 Pulse Ox 97 05/21/18 11:54 Intake & Output 09/11/18 09/12/18 09/12/18 18:59 06:59 18:59 Intake Total 1000 1360 1000 Output Total 1050 1900 Balance -50 -540 1000 Weight (lbs) 54.431 kg 54.431 kg Intake: Intake, IV Amount 1000 1000 1000 Dextrose 5% 1,000 ml @ 1000 1000 1000 125 mls/hr IV .Q8H [facility] Rx #:[id number] Oral 0 Tube Feeding 240 Other 120 Output: Urine 1050 1900 Other: # Bowel Movements 0 Weight Source Bedscale Estimated Active Medications: Current Medications Acetaminophen (Tylenol) 650 mg PO Q4HR PRN PRN Reason: Mild Pain / Temp above 100 Stop: 07/15/18 16:05 Amlodipine Besylate (Norvasc) 2.5 mg PO DAILY [facility] Stop: 07/16/18 08:59 Last Admin: 05/21/18 09:31 Dose: 2.5 mg Carbidopa/Levodopa (Sinemet 25mg-100 Mg) 1 tab PO Q6HR [facility] Stop: 07/15/18 17:59 Last Admin: 05/21/18 06:01 Dose: 1 tab Entacapone (Comtan) 200 mg PO Q6HR [facility] Stop: 07/15/18 17:59 Last Admin: 05/21/18 06:00 Dose: 200 mg Escitalopram Oxalate (Lexapro) 10 mg PO DAILY [facility]; Protocol Stop: 07/16/18 08:59 Gabapentin (Neurontin) 100 mg PO BID [facility] Stop: 07/15/18 16:59 Last Admin: 05/21/18 09:31 Dose: 100 mg Levofloxacin (Levaquin Pb) 500 mg in 100 mls @ 100 mls/hr IV Q24HR [facility] Stop: 07/15/18 16:59 Last Admin: 18 17:51 Dose: 100 mls/hr Dextrose (D5w) 1,000 mls @ 125 mls/hr IV .Q8H [facility] Stop: 07/16/18 13:25 Last Admin: 05/21/18 11:13 Dose: 125 mls/hr Lactobacillus Rhamnosus (Culturelle 15b) 1 each PO DAILY [facility] Stop: 07/16/18 08:59 Last Admin: 05/21/18 09:31 Dose: 1 each Lorazepam (Ativan) 0.5 mg PO Q4HR PRN; Protocol PRN Reason: Anxiety Stop: 07/15/18 16:05 Magnesium Hydroxide (Milk Of Magnesia) 30 ml PO HS PRN PRN Reason: Constipation Stop: 07/15/18 16:05 Memantine (Namenda) 5 mg PO DAILY [facility] Stop: 07/16/18 08:59 Last Admin: 05/21/18 09:31 Dose: 5 mg Miscellaneous (Probiotic Screen) 1 ea MC PRN PRN PRN Reason: PROTOCOL Stop: 07/18/18 12:54 Mupirocin (Bactroban Oint) 1 appl NS BID [facility] Stop: 05/22/18 09:01 Last Admin: 05/21/18 09:32 Dose: 1 appl Nitroglycerin (Nitrostat) 0.4 mg SL Q5M PRN PRN Reason: Chest Pain Stop: 07/15/18 16:05 Simvastatin (Zocor) 20 mg PO HS [facility]; Protocol Stop: 07/15/18 20:59 Last Admin: 05/20/18 20:45 Dose: 20 mg Temazepam (Restoril) 15 mg PO HS PRN; Protocol PRN Reason: Sleeplessness Stop: 07/15/18 16:05 Zolpidem Tartrate (Ambien) 5 mg PO HS PRN PRN Reason: Insomnia Stop: 07/15/18 20:59 General: No acute distress HEENT: Atraumatic Neck: Supple Cardiovascular: Regular rate, Normal S1, Normal S2 Lungs: Clear to auscultation Assessment/Plan - Problem List Patient Problems: All Active Problems Dementia (Acute) F03.90 Failure to thrive (Acute) [id number] HTN (hypertension) (Acute) I10 Hyperlipidemia (Acute) E78.5 Osteoarthritis (Acute) M19.90 Parkinsons disease (Acute) G20 - Plan Plan: cpm Nutritional Asmnt/Malnutr-PDOC - Dietary Evaluation Malnutrition Findings (Please click <Entered> for more info): Nutritional Asmnt/Malnutrition Start: 05/17/18 10: 38 Text: Status: Complete Freq: Protocol: Document 05/19/18 17:33 [email or web address] (Rec: 05/19/18 17:51 BRUCE [email or web address]) Nutritional Asmnt/Malnutrition Patient General Information Nutritional Screening High Risk Diagnosis dehydration, FTT Pertinent Medical Hx/Surgical Hx OA, HTN, parkinson, hyperlipidemia Subjective Information Pt seen lying in bed at time of visit, drowsy and non verbal. Per RN, pt has been refusing food x 3 days, only taking juice. Pt had swallow eval in the afternoon and failed. Pt now is on NPO. is considering PEG. Current Diet Order/ Nutrition Support NPO Pertinent Medications D5w, culturelle, levaquin Pertinent Labs 05/19 Cl 108, BUN 43, glucose 154, POC 183 Nutritional Hx/Data Height 1.83 m Height (Calculated Centimeters) 182.9 Current Weight (lbs) 53.524 kg Weight (Calculated Kilograms) 53.5 Weight (Calculated Grams) 46587.9 [place] Body Weight 178 Body Mass Index (BMI) 16.0 Weight Status Underweight GI Symptoms GI Symptoms None Last BM none Difficult in: Chewing Swallowing Skin Integrity/Comment: pressure area reddened to sacrum, abrasion reddened to right elbow, redded to right hip Current %PO Negligible < 25% Estimated Nutritional Goals BEE in Kcals: Using Current wt Calories/Kcals/Kg 30-35 Kcals Calculated 5493-4658 Protein: Using Current wt Protein g/k.2-1.4 Protein Calculated 65-75 Fluid: ml 1620-1890ml (1ml/kcal) Nutritional Problem 1. Problem Problem chewing/swallowing difficulty Etiology possible weakness and mental status Signs/Symptoms: pt failed swallow eval and on NPO Intervention/Recommendation Comments 1. Monitor NPO status. Consider alternative nutrition route. 2. Monitor wt, labs and skin integrity 3. F/U as high risk in 2-3 days, 05/21-05/22 Expected Outcomes/Goals Expected Outcomes/Goals 1. PO intake to meet at least 75% of nutritional needs via alternative nutrition route. 2. Wt stability, change toward to IBW, skin integrity to improve, labs to approach WNL.
[2018-05-22] MEDS: Dextrose 5% 1,000 ML IV SCH ×2 (03:43→16:40)
[2018-05-22 06:20] LABS: % EOSINOPHILS 2.3 % (0.0-5.0); % LYMPHOCYTES 13.1 % (20.0-50.0); % NEUTROPHILS 75.6 % (40.0-80.0); EOSINOPHILE ABSOLUTE 0.2 Th/cmm (0.1-0.4); HEMATOCRIT 39.3 % (41.0-60); HEMOGLOBIN 13.2 gm/dL (12-16); LYMPHOCYTE ABSOLUTE 1.2 Th/cmm (1.5-3.0); MEAN CELL VOLUME 90.9 fl (80-99); MEAN CORPUSCULAR HEMOGLOBIN 30.6 pg (27.0-31.0); MEAN CORPUSCULAR HGB CONC 33.6 pg (28.0-36.0); MEAN PLATELET VOLUME 9.9 fl; MONOCYTE ABSOLUTE 0.8 Th/cmm (0.3-1.0); NEUTROPHILE ABSOLUTE 6.8 Th/cmm (1.8-8.0); PLATELET COUNT 215 Th/cmm (150-400); RED BLOOD COUNT 4.32 Mil/cmm (3.80-5.80); RED CELL DISTRIBUTION WIDTH 12.2 % (11.5-20.0)
[2018-05-22 06:40] LABS: ALB/GLOB RATIO 1.2 (1.0-1.8); ALBUMIN 3.2 gm/dL (4.2-5.5); ALKALINE PHOSPHATASE 67 U/L (34-104); ANION GAP 10.2 (7.0-16.0); BILIRUBIN,TOTAL 0.5 mg/dL (0.3-1.0); BUN - UREA NITROGEN 22 mg/dL (7-25); CALCIUM SERUM 9.4 mg/dL (8.6-10.3); CARBON DIOXIDE 28.6 mEq/L (21.0-31.0); CHLORIDE 102 mEq/L (98-107); CREATININE - SERUM 1.1 mg/dL (0.7-1.3); GLUCOSE 148 mg/dL (70-105); POTASSIUM SERUM 3.8 mEq/L (3.5-5.1); SGOT 14 U/L (13-39); SGPT/ALT 3 U/L (7-52); SODIUM SERUM 137 mEq/L (136-145); TOTAL PROTEIN,SERUM 5.9 gm/dL (6.0-8.3)
--- NOTE | 2018-05-22 07:54 | GI Progress Note ---
Subjective - Review of Systems Subjective: NO EVENTS Objective - Results Result Diagrams: 05/22/18 06:00 05/22/18 06:00 Recent Labs: Laboratory Last Values WBC 9.0 Th/cmm (4.8-10.8) 05/22/18 06:00 RBC 4.32 Mil/cmm (3.80-5.80) 05/22/18 06:00 Hgb 13.2 gm/dL (12-16) 05/22/18 06:00 Hct 39.3 % (41.0-60) L 05/22/18 06:00 MCV 90.9 fl (80-99) 05/22/18 06:00 MCH 30.6 pg (27.0-31.0) 05/22/18 06:00 MCHC Differential 33.6 pg (28.0-36.0) 05/22/18 06:00 RDW 12.2 % (11.5-20.0) 05/22/18 06:00 Plt Count 215 Th/cmm (150-400) 05/22/18 06:00 MPV 9.9 fl 05/22/18 06:00 Add Manual Diff YES 05/20/18 05:30 Neutrophils % 75.6 % (40.0-80.0) 05/22/18 06:00 Band Neutrophils % 1 % (0-10) 05/20/18 05:30 Lymphocytes % 13.1 % (20.0-50.0) L 05/22/18 06:00 Monocytes % 9.0 % (2.0-10.0) 05/22/18 06:00 Eosinophils % 2.3 % (0.0-5.0) 05/22/18 06:00 Basophils % 0.0 % (0.0-2.0) 05/22/18 06:00 Neutrophils (Manual) 80 % (40-80) 05/20/18 05:30 Lymphocytes 12 % (20-50) L 05/20/18 05:30 Monocytes 7 % (2-10) 05/20/18 05:30 Eosinophils 0 % (0-5) 05/20/18 05:30 Basophils 0 % (0-3) 05/20/18 05:30 PT 10.3 SECONDS (9.5-11.5) 05/19/18 05:40 INR 0.99 (0.5-1.4) 05/19/18 05:40 Sodium 137 mEq/L (136-145) 05/22/18 06:00 Potassium 3.8 mEq/L (3.5-5.1) 05/22/18 06:00 Chloride 102 mEq/L (98-107) 05/22/18 06:00 Carbon Dioxide 28.6 mEq/L (21.0-31.0) 05/22/18 06:00 Anion Gap 10.2 (7.0-16.0) 05/22/18 06:00 BUN 22 mg/dL (7-25) 05/22/18 06:00 Creatinine 1.1 mg/dL (0.7-1.3) 05/22/18 06:00 Est GFR ( Amer) TNP 05/22/18 06:00 Est GFR (Non-Af Amer) TNP 05/22/18 06:00 BUN/Creatinine Ratio 20.0 05/22/18 06:00 Glucose 148 mg/dL (70-105) H 05/22/18 06:00 POC Glucose 183 MG/DL (70 - 105) H 05/19/18 11:43 Whole Bld Lactic Acid 1.37 mmol/L (0.60-1.99) 05/16/18 17:30 Calcium 9.4 mg/dL (8.6-10.3) 05/22/18 06:00 Magnesium 2.8 mg/dL (1.9-2.7) H 05/17/18 13:34 Total Bilirubin 0.5 mg/dL (0.3-1.0) 05/22/18 06:00 AST 14 U/L (13-39) 05/22/18 06:00 ALT 3 U/L (7-52) L 05/22/18 06:00 Alkaline Phosphatase 67 U/L (34-104) 05/22/18 06:00 Total Protein 5.9 gm/dL (6.0-8.3) L 05/22/18 06:00 Albumin 3.2 gm/dL (4.2-5.5) L 05/22/18 06:00 Globulin 2.7 gm/dL 05/22/18 06:00 Albumin/Globulin Ratio 1.2 (1.0-1.8) 05/22/18 06:00 Urine Source CATH 05/17/18 15:45 Urine Color YELLOW 05/17/18 15:45 Urine Clarity CLEAR (CLEAR) 05/17/18 15:45 Urine pH 6.0 (4.6 - 8.0) 05/17/18 15:45 Ur Specific [place] 1.010 (1.005-1.030) 05/17/18 15:45 Urine Protein TRACE mg/dL (NEGATIVE) 05/17/18 15:45 Urine Glucose (UA) >=1000 mg/dL (NEGATIVE) H 05/17/18 15:45 Urine Ketones NEGATIVE mg/dL (NEGATIVE) 05/17/18 15:45 Urine Blood MODERATE (NEGATIVE) H 05/17/18 15:45 Urine Nitrate NEGATIVE (NEGATIVE) 05/17/18 15:45 Urine Bilirubin NEGATIVE (NEGATIVE) 05/17/18 15:45 Urine Urobilinogen 0.2 E.U./dL (0.2 - 1.0) 05/17/18 15:45 Ur Leukocyte Esterase NEGATIVE (NEGATIVE) 05/17/18 15:45 Urine RBC 5-10 /hpf (0-5) H 05/17/18 15:45 Urine WBC 0-2 /hpf (0-5) 05/17/18 15:45 Ur Epithelial Cells FEW /lpf (FEW) 05/17/18 15:45 Urine Bacteria 1+ /hpf (NONE SEEN) H 05/17/18 15:45 Fine Granular Casts 0-2 /lpf (NONE SEEN) H 05/17/18 15:45 Urine Mucus FEW /lpf (FEW) 05/17/18 15:45 Urine Osmolality 757 mOsmol/kg 05/17/18 15:45 Ur Random Sodium 35 mmol/L 05/17/18 15:45 Urine Creatinine 83.0 mg/dl (39.0-259.0) 05/17/18 15:45 - Physical Exam Vitals and I&O: Vital Signs Temp 98.3 F 05/22/18 04:00 Pulse 67 05/22/18 04:00 Resp 18 05/22/18 04:00 BP 121/54 05/22/18 04:00 Pulse Ox 99 05/22/18 04:00 Intake & Output 05/21/18 05/22/18 05/22/18 18:59 06:59 18:59 Intake Total 1370 1490 Output Total 1500 1100 Balance -130 390 Weight (lbs) 54.431 kg 54.431 kg Intake: Intake, IV Amount 1000 1000 Dextrose 5% 1,000 ml @ 1000 1000 125 mls/hr IV .Q8H [facility] Rx #:[id number] Tube Feeding 370 490 Output: Urine 1500 1100 Other: # Bowel Movements 0 Weight Source Bedscale Bedscale Active Medications: Current Medications Acetaminophen (Tylenol) 650 mg PO Q4HR PRN PRN Reason: Mild Pain / Temp above 100 Stop: 07/15/18 16:05 Amlodipine Besylate (Norvasc) 2.5 mg PO DAILY [facility] Stop: 07/16/18 08:59 Last Admin: 05/21/18 09:31 Dose: 2.5 mg Carbidopa/Levodopa (Sinemet 25mg-100 Mg) 1 tab PO Q6HR [facility] Stop: 07/15/18 17:59 Last Admin: 05/22/18 07:33 Dose: 1 tab Entacapone (Comtan) 200 mg PO Q6HR [facility] Stop: 07/15/18 17:59 Last Admin: 05/22/18 07:34 Dose: Not Given Escitalopram Oxalate (Lexapro) 10 mg PO DAILY [facility]; Protocol Stop: 07/16/18 08:59 Gabapentin (Neurontin) 100 mg PO BID [facility] Stop: 07/15/18 16:59 Last Admin: 05/21/18 17:20 Dose: 100 mg Dextrose (D5w) 1,000 mls @ 125 mls/hr IV .Q8H [facility] Stop: 07/16/18 13:25 Last Admin: 05/22/18 03:43 Dose: 125 mls/hr Lactobacillus Rhamnosus (Culturelle 15b) 1 each PO DAILY [facility] Stop: 07/16/18 08:59 Last Admin: 05/21/18 09:31 Dose: 1 each Lorazepam (Ativan) 0.5 mg PO Q4HR PRN; Protocol PRN Reason: Anxiety Stop: 07/15/18 16:05 Magnesium Hydroxide (Milk Of Magnesia) 30 ml PO HS PRN PRN Reason: Constipation Stop: 07/15/18 16:05 Memantine (Namenda) 5 mg PO DAILY [facility] Stop: 07/16/18 08:59 Last Admin: 05/21/18 09:31 Dose: 5 mg Miscellaneous (Probiotic Screen) 1 ea MC PRN PRN PRN Reason: PROTOCOL Stop: 07/18/18 12:54 Mupirocin (Bactroban Oint) 1 appl NS BID [facility] Stop: 05/22/18 09:01 Last Admin: 05/21/18 17:20 Dose: 1 appl Nitroglycerin (Nitrostat) 0.4 mg SL Q5M PRN PRN Reason: Chest Pain Stop: 07/15/18 16:05 Simvastatin (Zocor) 20 mg PO HS [facility]; Protocol Stop: 07/15/18 20:59 Last Admin: 05/21/18 21:52 Dose: 20 mg Temazepam (Restoril) 15 mg PO HS PRN; Protocol PRN Reason: Sleeplessness Stop: 07/15/18 16:05 Zolpidem Tartrate (Ambien) 5 mg PO HS PRN PRN Reason: Insomnia Stop: 07/15/18 20:59 General: No acute distress HEENT: Atraumatic Neck: Supple Cardiovascular: Regular rate, Normal S1, Normal S2 Lungs: Clear to auscultation Assessment/Plan - Problem List Patient Problems: All Active Problems Dementia (Acute) F03.90 Failure to thrive (Acute) [id number] HTN (hypertension) (Acute) I10 Hyperlipidemia (Acute) E78.5 Osteoarthritis (Acute) M19.90 Parkinsons disease (Acute) G20 - Assessment Assessment: 77 YO MALE WITH FAILURE TO THRIVE AND DYSPHAGIA 1.CONSIDER PEG WHEN CONSENT 2.CONT SUPP CARE 3.CONT NGT FOR NOW
--- NOTE | 2018-05-22 07:55 | Diagnostic Imaging Report ---
Portable chest x-ray HISTORY: Shortness of breath, nasogastric tube placement The overall heart size is normal. No focal prominent processes. A nasogastric tube tip projects over the upper left abdomen over the region of the gastric fundus. This may be advanced proximally 6.0 cm further into the stomach. No focal pulmonary processes. IMPRESSION: 1. Nasogastric tube projecting over the upper fundal region of the stomach. This may be advanced approximately 6.0 cm further into the gastric lumen.
[2018-05-22] MEDS: Lactobacillus Rhamnosus GG 15 Billion CFU CAP.SPRINK PO SCH (08:44)
--- NOTE | 2018-05-22 10:08 | General Progress Note ---
Subjective - Review of Systems Events since last encounter: no change no fever Objective - Results Result Diagrams: 05/22/18 06:00 05/22/18 06:00 Recent Labs: Laboratory Last Values WBC 9.0 Th/cmm (4.8-10.8) 05/22/18 06:00 RBC 4.32 Mil/cmm (3.80-5.80) 05/22/18 06:00 Hgb 13.2 gm/dL (12-16) 05/22/18 06:00 Hct 39.3 % (41.0-60) L 05/22/18 06:00 MCV 90.9 fl (80-99) 05/22/18 06:00 MCH 30.6 pg (27.0-31.0) 05/22/18 06:00 MCHC Differential 33.6 pg (28.0-36.0) 05/22/18 06:00 RDW 12.2 % (11.5-20.0) 05/22/18 06:00 Plt Count 215 Th/cmm (150-400) 05/22/18 06:00 MPV 9.9 fl 05/22/18 06:00 Add Manual Diff YES 05/20/18 05:30 Neutrophils % 75.6 % (40.0-80.0) 05/22/18 06:00 Band Neutrophils % 1 % (0-10) 05/20/18 05:30 Lymphocytes % 13.1 % (20.0-50.0) L 05/22/18 06:00 Monocytes % 9.0 % (2.0-10.0) 05/22/18 06:00 Eosinophils % 2.3 % (0.0-5.0) 05/22/18 06:00 Basophils % 0.0 % (0.0-2.0) 05/22/18 06:00 Neutrophils (Manual) 80 % (40-80) 05/20/18 05:30 Lymphocytes 12 % (20-50) L 05/20/18 05:30 Monocytes 7 % (2-10) 05/20/18 05:30 Eosinophils 0 % (0-5) 05/20/18 05:30 Basophils 0 % (0-3) 05/20/18 05:30 PT 10.3 SECONDS (9.5-11.5) 05/19/18 05:40 INR 0.99 (0.5-1.4) 05/19/18 05:40 Sodium 137 mEq/L (136-145) 05/22/18 06:00 Potassium 3.8 mEq/L (3.5-5.1) 05/22/18 06:00 Chloride 102 mEq/L (98-107) 05/22/18 06:00 Carbon Dioxide 28.6 mEq/L (21.0-31.0) 05/22/18 06:00 Anion Gap 10.2 (7.0-16.0) 05/22/18 06:00 BUN 22 mg/dL (7-25) 05/22/18 06:00 Creatinine 1.1 mg/dL (0.7-1.3) 05/22/18 06:00 Est GFR ( Amer) TNP 05/22/18 06:00 Est GFR (Non-Af Amer) TNP 05/22/18 06:00 BUN/Creatinine Ratio 20.0 05/22/18 06:00 Glucose 148 mg/dL (70-105) H 05/22/18 06:00 POC Glucose 183 MG/DL (70 - 105) H 05/19/18 11:43 Whole Bld Lactic Acid 1.37 mmol/L (0.60-1.99) 05/16/18 17:30 Calcium 9.4 mg/dL (8.6-10.3) 05/22/18 06:00 Magnesium 2.8 mg/dL (1.9-2.7) H 05/17/18 13:34 Total Bilirubin 0.5 mg/dL (0.3-1.0) 05/22/18 06:00 AST 14 U/L (13-39) 05/22/18 06:00 ALT 3 U/L (7-52) L 05/22/18 06:00 Alkaline Phosphatase 67 U/L (34-104) 05/22/18 06:00 Total Protein 5.9 gm/dL (6.0-8.3) L 05/22/18 06:00 Albumin 3.2 gm/dL (4.2-5.5) L 05/22/18 06:00 Globulin 2.7 gm/dL 05/22/18 06:00 Albumin/Globulin Ratio 1.2 (1.0-1.8) 05/22/18 06:00 Urine Source CATH 05/17/18 15:45 Urine Color YELLOW 05/17/18 15:45 Urine Clarity CLEAR (CLEAR) 05/17/18 15:45 Urine pH 6.0 (4.6 - 8.0) 05/17/18 15:45 Ur Specific [place] 1.010 (1.005-1.030) 05/17/18 15:45 Urine Protein TRACE mg/dL (NEGATIVE) 05/17/18 15:45 Urine Glucose (UA) >=1000 mg/dL (NEGATIVE) H 05/17/18 15:45 Urine Ketones NEGATIVE mg/dL (NEGATIVE) 05/17/18 15:45 Urine Blood MODERATE (NEGATIVE) H 05/17/18 15:45 Urine Nitrate NEGATIVE (NEGATIVE) 05/17/18 15:45 Urine Bilirubin NEGATIVE (NEGATIVE) 05/17/18 15:45 Urine Urobilinogen 0.2 E.U./dL (0.2 - 1.0) 05/17/18 15:45 Ur Leukocyte Esterase NEGATIVE (NEGATIVE) 05/17/18 15:45 Urine RBC 5-10 /hpf (0-5) H 05/17/18 15:45 Urine WBC 0-2 /hpf (0-5) 05/17/18 15:45 Ur Epithelial Cells FEW /lpf (FEW) 05/17/18 15:45 Urine Bacteria 1+ /hpf (NONE SEEN) H 05/17/18 15:45 Fine Granular Casts 0-2 /lpf (NONE SEEN) H 05/17/18 15:45 Urine Mucus FEW /lpf (FEW) 05/17/18 15:45 Urine Osmolality 757 mOsmol/kg 05/17/18 15:45 Ur Random Sodium 35 mmol/L 05/17/18 15:45 Urine Creatinine 83.0 mg/dl (39.0-259.0) 05/17/18 15:45 - Physical Exam Vitals and I&O: Vital Signs Temp 97.2 F 05/22/18 08:00 Pulse 78 05/22/18 08:44 Resp 18 05/22/18 08:00 BP 109/60 05/22/18 08:44 Pulse Ox 97 05/22/18 08:00 Intake & Output 09/12/18 09/13/18 09/13/18 18:59 06:59 18:59 Intake Total 1370 1490 Output Total 1500 1100 Balance -130 390 Weight (lbs) 54.431 kg 54.431 kg Intake: Intake, IV Amount 1000 1000 Dextrose 5% 1,000 ml @ 1000 1000 125 mls/hr IV .Q8H [facility] Rx #:[id number] Tube Feeding 370 490 Output: Urine 1500 1100 Other: # Bowel Movements 0 Weight Source Bedscale Bedscale Active Medications: Current Medications Acetaminophen (Tylenol) 650 mg PO Q4HR PRN PRN Reason: Mild Pain / Temp above 100 Stop: 07/15/18 16:05 Amlodipine Besylate (Norvasc) 2.5 mg PO DAILY [facility] Stop: 07/16/18 08:59 Last Admin: 05/22/18 08:44 Dose: 2.5 mg Carbidopa/Levodopa (Sinemet 25mg-100 Mg) 1 tab PO Q6HR [facility] Stop: 07/15/18 17:59 Last Admin: 05/22/18 07:33 Dose: 1 tab Entacapone (Comtan) 200 mg PO Q6HR [facility] Stop: 07/15/18 17:59 Last Admin: 05/22/18 07:34 Dose: Not Given Escitalopram Oxalate (Lexapro) 10 mg PO DAILY [facility]; Protocol Stop: 07/16/18 08:59 Gabapentin (Neurontin) 100 mg PO BID [facility] Stop: 07/15/18 16:59 Last Admin: 05/22/18 08:44 Dose: 100 mg Dextrose (D5w) 1,000 mls @ 125 mls/hr IV .Q8H [facility] Stop: 07/16/18 13:25 Last Admin: 05/22/18 03:43 Dose: 125 mls/hr Lactobacillus Rhamnosus (Culturelle 15b) 1 each PO DAILY [facility] Stop: 07/16/18 08:59 Last Admin: 05/22/18 08:44 Dose: 1 each Lorazepam (Ativan) 0.5 mg PO Q4HR PRN; Protocol PRN Reason: Anxiety Stop: 07/15/18 16:05 Magnesium Hydroxide (Milk Of Magnesia) 30 ml PO HS PRN PRN Reason: Constipation Stop: 07/15/18 16:05 Memantine (Namenda) 5 mg PO DAILY [facility] Stop: 07/16/18 08:59 Last Admin: 05/22/18 08:44 Dose: 5 mg Miscellaneous (Probiotic Screen) 1 ea MC PRN PRN PRN Reason: PROTOCOL Stop: 07/18/18 12:54 Nitroglycerin (Nitrostat) 0.4 mg SL Q5M PRN PRN Reason: Chest Pain Stop: 07/15/18 16:05 Simvastatin (Zocor) 20 mg PO HS [facility]; Protocol Stop: 07/15/18 20:59 Last Admin: 05/21/18 21:52 Dose: 20 mg Temazepam (Restoril) 15 mg PO HS PRN; Protocol PRN Reason: Sleeplessness Stop: 07/15/18 16:05 Zolpidem Tartrate (Ambien) 5 mg PO HS PRN PRN Reason: Insomnia Stop: 07/15/18 20:59 General: No acute distress HEENT: Atraumatic Neck: Supple Cardiovascular: Regular rate, Normal S1, Normal S2 Lungs: Clear to auscultation Assessment/Plan - Problem List Patient Problems: All Active Problems Dementia (Acute) F03.90 Failure to thrive (Acute) [id number] HTN (hypertension) (Acute) I10 Hyperlipidemia (Acute) E78.5 Osteoarthritis (Acute) M19.90 Parkinsons disease (Acute) G20 - Plan Plan: cpm Nutritional Asmnt/Malnutr-PDOC - Dietary Evaluation Malnutrition Findings (Please click <Entered> for more info): Nutritional Asmnt/Malnutrition Start: 05/17/18 10: 38 Text: Status: Complete Freq: Protocol: Document 05/19/18 17:33 [email or web address] (Rec: 05/19/18 17:51 [email or web address]) Nutritional Asmnt/Malnutrition Patient General Information Nutritional Screening High Risk Diagnosis dehydration, FTT Pertinent Medical Hx/Surgical Hx OA, HTN, parkinson, hyperlipidemia Subjective Information Pt seen lying in bed at time of visit, drowsy and non verbal. Per RN, pt has been refusing food x 3 days, only taking juice. Pt had swallow eval in the afternoon and failed. Pt now is on NPO. is considering PEG. Current Diet Order/ Nutrition Support NPO Pertinent Medications D5w, culturelle, levaquin Pertinent Labs 05/19 Cl 108, BUN 43, glucose 154, POC 183 Nutritional Hx/Data Height 1.83 m Height (Calculated Centimeters) 182.9 Current Weight (lbs) 53.524 kg Weight (Calculated Kilograms) 53.5 Weight (Calculated Grams) 14478.9 [place] Body Weight 178 Body Mass Index (BMI) 16.0 Weight Status Underweight GI Symptoms GI Symptoms None Last BM none Difficult in: Chewing Swallowing Skin Integrity/Comment: pressure area reddened to sacrum, abrasion reddened to right elbow, redded to right hip Current %PO Negligible < 25% Estimated Nutritional Goals BEE in Kcals: Using Current wt Calories/Kcals/Kg 30-35 Kcals Calculated 5219-2847 Protein: Using Current wt Protein g/k.2-1.4 Protein Calculated 65-75 Fluid: ml 1620-1890ml (1ml/kcal) Nutritional Problem 1. Problem Problem chewing/swallowing difficulty Etiology possible weakness and mental status Signs/Symptoms: pt failed swallow eval and on NPO Intervention/Recommendation Comments 1. Monitor NPO status. Consider alternative nutrition route. 2. Monitor wt, labs and skin integrity 3. F/U as high risk in 2-3 days, 05/21-05/22 Expected Outcomes/Goals Expected Outcomes/Goals 1. PO intake to meet at least 75% of nutritional needs via alternative nutrition route. 2. Wt stability, change toward to IBW, skin integrity to improve, labs to approach WNL.
[2018-05-22] MEDS: Levofloxacin 500mg/100mL 500 MG/100 ML BAG IV SCH (16:40)
--- NOTE | 2018-05-23 08:14 | GI Progress Note ---
Subjective - Review of Systems Subjective: NO EVENTS Objective - Results Result Diagrams: 05/22/18 06:00 05/22/18 06:00 Recent Labs: Laboratory Last Values WBC 9.0 Th/cmm (4.8-10.8) 05/22/18 06:00 RBC 4.32 Mil/cmm (3.80-5.80) 05/22/18 06:00 Hgb 13.2 gm/dL (12-16) 05/22/18 06:00 Hct 39.3 % (41.0-60) L 05/22/18 06:00 MCV 90.9 fl (80-99) 05/22/18 06:00 MCH 30.6 pg (27.0-31.0) 05/22/18 06:00 MCHC Differential 33.6 pg (28.0-36.0) 05/22/18 06:00 RDW 12.2 % (11.5-20.0) 05/22/18 06:00 Plt Count 215 Th/cmm (150-400) 05/22/18 06:00 MPV 9.9 fl 05/22/18 06:00 Add Manual Diff YES 05/20/18 05:30 Neutrophils % 75.6 % (40.0-80.0) 05/22/18 06:00 Band Neutrophils % 1 % (0-10) 05/20/18 05:30 Lymphocytes % 13.1 % (20.0-50.0) L 05/22/18 06:00 Monocytes % 9.0 % (2.0-10.0) 05/22/18 06:00 Eosinophils % 2.3 % (0.0-5.0) 05/22/18 06:00 Basophils % 0.0 % (0.0-2.0) 05/22/18 06:00 Neutrophils (Manual) 80 % (40-80) 05/20/18 05:30 Lymphocytes 12 % (20-50) L 05/20/18 05:30 Monocytes 7 % (2-10) 05/20/18 05:30 Eosinophils 0 % (0-5) 05/20/18 05:30 Basophils 0 % (0-3) 05/20/18 05:30 PT 10.3 SECONDS (9.5-11.5) 05/19/18 05:40 INR 0.99 (0.5-1.4) 05/19/18 05:40 Sodium 137 mEq/L (136-145) 05/22/18 06:00 Potassium 3.8 mEq/L (3.5-5.1) 05/22/18 06:00 Chloride 102 mEq/L (98-107) 05/22/18 06:00 Carbon Dioxide 28.6 mEq/L (21.0-31.0) 05/22/18 06:00 Anion Gap 10.2 (7.0-16.0) 05/22/18 06:00 BUN 22 mg/dL (7-25) 05/22/18 06:00 Creatinine 1.1 mg/dL (0.7-1.3) 05/22/18 06:00 Est GFR ( Amer) TNP 05/22/18 06:00 Est GFR (Non-Af Amer) TNP 05/22/18 06:00 BUN/Creatinine Ratio 20.0 05/22/18 06:00 Glucose 148 mg/dL (70-105) H 05/22/18 06:00 POC Glucose 183 MG/DL (70 - 105) H 05/19/18 11:43 Whole Bld Lactic Acid 1.37 mmol/L (0.60-1.99) 05/16/18 17:30 Calcium 9.4 mg/dL (8.6-10.3) 05/22/18 06:00 Magnesium 2.8 mg/dL (1.9-2.7) H 05/17/18 13:34 Total Bilirubin 0.5 mg/dL (0.3-1.0) 05/22/18 06:00 AST 14 U/L (13-39) 05/22/18 06:00 ALT 3 U/L (7-52) L 05/22/18 06:00 Alkaline Phosphatase 67 U/L (34-104) 05/22/18 06:00 Total Protein 5.9 gm/dL (6.0-8.3) L 05/22/18 06:00 Albumin 3.2 gm/dL (4.2-5.5) L 05/22/18 06:00 Globulin 2.7 gm/dL 05/22/18 06:00 Albumin/Globulin Ratio 1.2 (1.0-1.8) 05/22/18 06:00 Urine Source CATH 05/17/18 15:45 Urine Color YELLOW 05/17/18 15:45 Urine Clarity CLEAR (CLEAR) 05/17/18 15:45 Urine pH 6.0 (4.6 - 8.0) 05/17/18 15:45 Ur Specific [place] 1.010 (1.005-1.030) 05/17/18 15:45 Urine Protein TRACE mg/dL (NEGATIVE) 05/17/18 15:45 Urine Glucose (UA) >=1000 mg/dL (NEGATIVE) H 05/17/18 15:45 Urine Ketones NEGATIVE mg/dL (NEGATIVE) 05/17/18 15:45 Urine Blood MODERATE (NEGATIVE) H 05/17/18 15:45 Urine Nitrate NEGATIVE (NEGATIVE) 05/17/18 15:45 Urine Bilirubin NEGATIVE (NEGATIVE) 05/17/18 15:45 Urine Urobilinogen 0.2 E.U./dL (0.2 - 1.0) 05/17/18 15:45 Ur Leukocyte Esterase NEGATIVE (NEGATIVE) 05/17/18 15:45 Urine RBC 5-10 /hpf (0-5) H 05/17/18 15:45 Urine WBC 0-2 /hpf (0-5) 05/17/18 15:45 Ur Epithelial Cells FEW /lpf (FEW) 05/17/18 15:45 Urine Bacteria 1+ /hpf (NONE SEEN) H 05/17/18 15:45 Fine Granular Casts 0-2 /lpf (NONE SEEN) H 05/17/18 15:45 Urine Mucus FEW /lpf (FEW) 05/17/18 15:45 Urine Osmolality 757 mOsmol/kg 05/17/18 15:45 Ur Random Sodium 35 mmol/L 05/17/18 15:45 Urine Creatinine 83.0 mg/dl (39.0-259.0) 05/17/18 15:45 - Physical Exam Vitals and I&O: Vital Signs Temp 97.6 F 05/23/18 03:00 Pulse 66 05/23/18 03:00 Resp 18 05/23/18 03:00 BP 101/47 05/23/18 03:00 Pulse Ox 97 05/23/18 03:00 Intake & Output 05/22/18 05/23/18 05/23/18 18:59 06:59 18:59 Intake Total 1700 Output Total 850 950 Balance 850 -950 Weight (lbs) 54.431 kg 54.431 kg Intake: Intake, IV Amount 1100 Dextrose 5% 1,000 ml @ 1000 125 mls/hr IV .Q8H [facility] Rx #:[id number] Levofloxacin 500mg/100mL 100 500 mg In 100 ml @ 100 mls/hr IV Q24HR [facility] Rx#: [id number] Oral 0 Tube Feeding 600 Output: Urine 850 950 Other: # Bowel Movements 1 Weight Source Bedscale Bedscale Active Medications: Current Medications Acetaminophen (Tylenol) 650 mg PO Q4HR PRN PRN Reason: Mild Pain / Temp above 100 Stop: 07/15/18 16:05 Amlodipine Besylate (Norvasc) 2.5 mg PO DAILY [facility] Stop: 07/16/18 08:59 Last Admin: 05/22/18 08:44 Dose: 2.5 mg Carbidopa/Levodopa (Sinemet 25mg-100 Mg) 1 tab PO Q6HR [facility] Stop: 07/15/18 17:59 Last Admin: 05/23/18 05:28 Dose: 1 tab Entacapone (Comtan) 200 mg PO Q6HR [facility] Stop: 07/15/18 17:59 Last Admin: 05/23/18 05:29 Dose: Not Given Escitalopram Oxalate (Lexapro) 10 mg PO DAILY [facility]; Protocol Stop: 07/22/18 08:59 Gabapentin (Neurontin) 100 mg PO BID [facility] Stop: 07/15/18 16:59 Last Admin: 05/22/18 17:09 Dose: 100 mg Dextrose (D5w) 1,000 mls @ 125 mls/hr IV .Q8H [facility] Stop: 07/16/18 13:25 Last Admin: 05/22/18 16:40 Dose: 125 mls/hr Levofloxacin (Levaquin Pb) 500 mg in 100 mls @ 100 mls/hr IV Q24HR [facility] Stop: 07/21/18 16:59 Last Infusion: 05/22/18 17:40 Dose: Infused Lactobacillus Rhamnosus (Culturelle 15b) 1 each PO DAILY [facility] Stop: 07/16/18 08:59 Last Admin: 05/22/18 08:44 Dose: 1 each Lorazepam (Ativan) 0.5 mg PO Q4HR PRN; Protocol PRN Reason: Anxiety Stop: 07/15/18 16:05 Magnesium Hydroxide (Milk Of Magnesia) 30 ml PO HS PRN PRN Reason: Constipation Stop: 07/15/18 16:05 Memantine (Namenda) 5 mg PO DAILY [facility] Stop: 07/16/18 08:59 Last Admin: 05/22/18 08:44 Dose: 5 mg Miscellaneous (Probiotic Screen) 1 ea MC PRN PRN PRN Reason: PROTOCOL Stop: 07/18/18 12:54 Nitroglycerin (Nitrostat) 0.4 mg SL Q5M PRN PRN Reason: Chest Pain Stop: 07/15/18 16:05 Simvastatin (Zocor) 20 mg PO HS [facility]; Protocol Stop: 07/15/18 20:59 Last Admin: 05/22/18 22:16 Dose: 20 mg Temazepam (Restoril) 15 mg PO HS PRN; Protocol PRN Reason: Sleeplessness Stop: 07/15/18 16:05 Zolpidem Tartrate (Ambien) 5 mg PO HS PRN PRN Reason: Insomnia Stop: 07/15/18 20:59 General: No acute distress HEENT: Atraumatic Neck: Supple Cardiovascular: Regular rate, Normal S1, Normal S2 Lungs: Clear to auscultation Assessment/Plan - Problem List Patient Problems: All Active Problems Dementia (Acute) F03.90 Failure to thrive (Acute) [id number] HTN (hypertension) (Acute) I10 Hyperlipidemia (Acute) E78.5 Osteoarthritis (Acute) M19.90 Parkinsons disease (Acute) G20 - Assessment Assessment: 77 YO MALE WITH FAILURE TO THRIVE AND DYSPHAGIA 1.CONSIDER PEG WHEN CONSENT 2.CONT SUPP CARE 3.CONT NGT FOR NOW
[2018-05-23] MEDS: Dextrose 5% 1,000 ML IV SCH ×2 (09:34→21:58)
[2018-05-23] MEDS: Lactobacillus Rhamnosus GG 15 Billion CFU CAP.SPRINK PO SCH (09:52)
[2018-05-23] MEDS: Levofloxacin 500mg/100mL 500 MG/100 ML BAG IV SCH (16:02)
[2018-05-24] MEDS: Dextrose 5% 1,000 ML IV SCH ×2 (05:50→15:45)
[2018-05-24 06:36] LABS: % BASOPHILS 0.1 % (0.0-2.0); % EOSINOPHILS 1.3 % (0.0-5.0); % LYMPHOCYTES 12.8 % (20.0-50.0); % MONOCYTES 9.2 % (2.0-10.0); % NEUTROPHILS 76.6 % (40.0-80.0); EOSINOPHILE ABSOLUTE 0.1 Th/cmm (0.1-0.4); HEMATOCRIT 37.8 % (41.0-60); HEMOGLOBIN 12.9 gm/dL (12-16); LYMPHOCYTE ABSOLUTE 1.2 Th/cmm (1.5-3.0); MEAN CELL VOLUME 90.4 fl (80-99); MEAN CORPUSCULAR HEMOGLOBIN 30.8 pg (27.0-31.0); MEAN PLATELET VOLUME 9.5 fl; MONOCYTE ABSOLUTE 0.8 Th/cmm (0.3-1.0); NEUTROPHILE ABSOLUTE 6.9 Th/cmm (1.8-8.0); PLATELET COUNT 253 Th/cmm (150-400); RED BLOOD COUNT 4.18 Mil/cmm (3.80-5.80); RED CELL DISTRIBUTION WIDTH 12.3 % (11.5-20.0)
[2018-05-24 06:51] LABS: ALBUMIN 3.2 gm/dL (4.2-5.5); ALKALINE PHOSPHATASE 75 U/L (34-104); BILIRUBIN,TOTAL 0.4 mg/dL (0.3-1.0); BUN - UREA NITROGEN 25 mg/dL (7-25); CALCIUM SERUM 9.2 mg/dL (8.6-10.3); CARBON DIOXIDE 28.9 mEq/L (21.0-31.0); CHLORIDE 100 mEq/L (98-107); GLUCOSE 145 mg/dL (70-105); MAGNESIUM 2.2 mg/dL (1.9-2.7); POTASSIUM SERUM 3.9 mEq/L (3.5-5.1); SGOT 17 U/L (13-39); SGPT/ALT 5 U/L (7-52); SODIUM SERUM 135 mEq/L (136-145); TOTAL PROTEIN,SERUM 6.3 gm/dL (6.0-8.3)
[2018-05-24] MEDS: Lactobacillus Rhamnosus GG 15 Billion CFU CAP.SPRINK PO SCH (09:35)
[2018-05-24] MEDS: Levofloxacin 500mg/100mL 500 MG/100 ML BAG IV SCH (17:22)
[2018-05-25] MEDS: Dextrose 5% 1,000 ML IV SCH ×2 (04:39→13:45)
--- NOTE | 2018-05-25 04:41 | Progress Notes ---
DATE: 05/24/2018 SUBJECTIVE: The patient was seen in his room. The patient is a poor historian due to medical condition. Unfortunately, the patient failed the swallow evaluations. Currently, he is on nasogastric tube for feeding. Otherwise, the patient appears to be in no acute distress. OBJECTIVE: VITAL SIGNS: Temperature 98.2, heart rate 65, blood pressure 104/53, respirations of 18 and 96% on room air. HEENT: Head is atraumatic and normocephalic. Eyes: Bilateral conjunctivae are clear. Bilateral pupils are equally round and reactive. NECK: Supple. No JVD. CARDIOVASCULAR: S1 and S2, without murmur. PULMONARY: Clear to auscultation. GASTROINTESTINAL: Soft and nontender without guarding. Positive bowel sounds. GENITOURINARY: The patient has nasogastric tube on the right naris. MUSCULOSKELETAL: No clubbing. No cyanosis noted. ASSESSMENT: 1. Failure to thrive. 2. Dysphagia. 3. Hypertension. 4. Parkinson's disease. 5. Hyperlipidemia. 6. Osteoarthritis. PLAN: We will continue current treatment and the patient will be planning for PEG placement. Treatment plans were discussed with the patient's nurse. Treatment plans were discussed with Dr. Paez. JOB# [id number]
[2018-05-25] MEDS: Lactobacillus Rhamnosus GG 15 Billion CFU CAP.SPRINK PO SCH (09:50)
--- NOTE | 2018-05-25 12:26 | General Progress Note ---
Subjective - Review of Systems Events since last encounter: failure to thrive on nasograstic tube feeding no signs of pain Objective - Results Result Diagrams: 05/24/18 06:10 05/24/18 06:10 Recent Labs: Laboratory Last Values WBC 9.0 Th/cmm (4.8-10.8) 05/24/18 06:10 RBC 4.18 Mil/cmm (3.80-5.80) 05/24/18 06:10 Hgb 12.9 gm/dL (12-16) 05/24/18 06:10 Hct 37.8 % (41.0-60) L 05/24/18 06:10 MCV 90.4 fl (80-99) 05/24/18 06:10 MCH 30.8 pg (27.0-31.0) 05/24/18 06:10 MCHC Differential 34.0 pg (28.0-36.0) 05/24/18 06:10 RDW 12.3 % (11.5-20.0) 05/24/18 06:10 Plt Count 253 Th/cmm (150-400) 05/24/18 06:10 MPV 9.5 fl 05/24/18 06:10 Add Manual Diff YES 05/20/18 05:30 Neutrophils % 76.6 % (40.0-80.0) 05/24/18 06:10 Band Neutrophils % 1 % (0-10) 05/20/18 05:30 Lymphocytes % 12.8 % (20.0-50.0) L 05/24/18 06:10 Monocytes % 9.2 % (2.0-10.0) 05/24/18 06:10 Eosinophils % 1.3 % (0.0-5.0) 05/24/18 06:10 Basophils % 0.1 % (0.0-2.0) 05/24/18 06:10 Neutrophils (Manual) 80 % (40-80) 05/20/18 05:30 Lymphocytes 12 % (20-50) L 05/20/18 05:30 Monocytes 7 % (2-10) 05/20/18 05:30 Eosinophils 0 % (0-5) 05/20/18 05:30 Basophils 0 % (0-3) 05/20/18 05:30 PT 10.3 SECONDS (9.5-11.5) 05/19/18 05:40 INR 0.99 (0.5-1.4) 05/19/18 05:40 Sodium 135 mEq/L (136-145) L 05/24/18 06:10 Potassium 3.9 mEq/L (3.5-5.1) 05/24/18 06:10 Chloride 100 mEq/L (98-107) 05/24/18 06:10 Carbon Dioxide 28.9 mEq/L (21.0-31.0) 05/24/18 06:10 Anion Gap 10.0 (7.0-16.0) 05/24/18 06:10 BUN 25 mg/dL (7-25) 05/24/18 06:10 Creatinine 1.0 mg/dL (0.7-1.3) 05/24/18 06:10 Est GFR ( Amer) TNP 05/24/18 06:10 Est GFR (Non-Af Amer) TNP 05/24/18 06:10 BUN/Creatinine Ratio 25.0 05/24/18 06:10 Glucose 145 mg/dL (70-105) H 05/24/18 06:10 POC Glucose 183 MG/DL (70 - 105) H 05/19/18 11:43 Whole Bld Lactic Acid 1.37 mmol/L (0.60-1.99) 05/16/18 17:30 Calcium 9.2 mg/dL (8.6-10.3) 05/24/18 06:10 Magnesium 2.2 mg/dL (1.9-2.7) 05/24/18 06:10 Total Bilirubin 0.4 mg/dL (0.3-1.0) 05/24/18 06:10 AST 17 U/L (13-39) 05/24/18 06:10 ALT 5 U/L (7-52) L 05/24/18 06:10 Alkaline Phosphatase 75 U/L (34-104) 05/24/18 06:10 Total Protein 6.3 gm/dL (6.0-8.3) 05/24/18 06:10 Albumin 3.2 gm/dL (4.2-5.5) L 05/24/18 06:10 Globulin 3.1 gm/dL 05/24/18 06:10 Albumin/Globulin Ratio 1.0 (1.0-1.8) 05/24/18 06:10 Urine Source CATH 05/17/18 15:45 Urine Color YELLOW 05/17/18 15:45 Urine Clarity CLEAR (CLEAR) 05/17/18 15:45 Urine pH 6.0 (4.6 - 8.0) 05/17/18 15:45 Ur Specific [place] 1.010 (1.005-1.030) 05/17/18 15:45 Urine Protein TRACE mg/dL (NEGATIVE) 05/17/18 15:45 Urine Glucose (UA) >=1000 mg/dL (NEGATIVE) H 05/17/18 15:45 Urine Ketones NEGATIVE mg/dL (NEGATIVE) 05/17/18 15:45 Urine Blood MODERATE (NEGATIVE) H 05/17/18 15:45 Urine Nitrate NEGATIVE (NEGATIVE) 05/17/18 15:45 Urine Bilirubin NEGATIVE (NEGATIVE) 05/17/18 15:45 Urine Urobilinogen 0.2 E.U./dL (0.2 - 1.0) 05/17/18 15:45 Ur Leukocyte Esterase NEGATIVE (NEGATIVE) 05/17/18 15:45 Urine RBC 5-10 /hpf (0-5) H 05/17/18 15:45 Urine WBC 0-2 /hpf (0-5) 05/17/18 15:45 Ur Epithelial Cells FEW /lpf (FEW) 05/17/18 15:45 Urine Bacteria 1+ /hpf (NONE SEEN) H 05/17/18 15:45 Fine Granular Casts 0-2 /lpf (NONE SEEN) H 05/17/18 15:45 Urine Mucus FEW /lpf (FEW) 05/17/18 15:45 Urine Osmolality 757 mOsmol/kg 05/17/18 15:45 Ur Random Sodium 35 mmol/L 05/17/18 15:45 Urine Creatinine 83.0 mg/dl (39.0-259.0) 05/17/18 15:45 - Physical Exam Vitals and I&O: Vital Signs Temp 97.6 F 05/25/18 08:00 Pulse 63 05/25/18 08:00 Resp 20 05/25/18 08:00 BP 99/51 05/25/18 08:00 Pulse Ox 100 05/25/18 08:00 Intake & Output 05/24/18 05/25/1816/18 18:59 06:59 18:59 Intake Total 1900 2100 Output Total 2300 1200 Balance -400 900 Weight (lbs) 54.431 kg 54.431 kg Intake: Intake, IV Amount 1100 1000 Dextrose 5% 1,000 ml @ 1000 1000 125 mls/hr IV .Q8H [facility] Rx #:[id number] Levofloxacin 500mg/100mL 100 500 mg In 100 ml @ 100 mls/hr IV Q24HR [facility] Rx#: [id number] Oral 0 Tube Feeding 600 750 Other 200 350 Output: Urine 2300 1200 Other: # Bowel Movements 0 Weight Source Bedscale Bedscale Active Medications: Current Medications Acetaminophen (Tylenol) 650 mg PO Q4HR PRN PRN Reason: Mild Pain / Temp above 100 Stop: 07/15/18 16:05 Amlodipine Besylate (Norvasc) 2.5 mg PO DAILY [facility] Stop: 07/16/18 08:59 Last Admin: 05/25/18 09:57 Dose: Not Given Carbidopa/Levodopa (Sinemet 25mg-100 Mg) 1 tab PO Q6HR [facility] Stop: 07/15/18 17:59 Last Admin: 05/25/18 11:27 Dose: 1 tab Entacapone (Comtan) 200 mg PO Q6HR [facility] Stop: 07/15/18 17:59 Last Admin: 05/25/18 11:27 Dose: 200 mg Escitalopram Oxalate (Lexapro) 10 mg PO DAILY [facility]; Protocol Stop: 07/22/18 08:59 Last Admin: 05/25/18 09:50 Dose: 10 mg Gabapentin (Neurontin) 100 mg PO BID [facility] Stop: 07/15/18 16:59 Last Admin: 05/25/18 09:50 Dose: 100 mg Dextrose (D5w) 1,000 mls @ 125 mls/hr IV .Q8H [facility] Stop: 07/16/18 13:25 Last Admin: 05/25/18 04:39 Dose: 125 mls/hr Levofloxacin (Levaquin Pb) 500 mg in 100 mls @ 100 mls/hr IV Q24HR [facility] Stop: 07/21/18 16:59 Last Infusion: 05/24/18 18:56 Dose: Infused Lactobacillus Rhamnosus (Culturelle 15b) 1 each PO DAILY [facility] Stop: 07/16/18 08:59 Last Admin: 05/25/18 09:50 Dose: 1 each Magnesium Hydroxide (Milk Of Magnesia) 30 ml PO HS PRN PRN Reason: Constipation Stop: 07/15/18 16:05 Memantine (Namenda) 5 mg PO DAILY [facility] Stop: 07/16/18 08:59 Last Admin: 05/25/18 09:50 Dose: 5 mg Miscellaneous (Probiotic Screen) 1 ea MC PRN PRN PRN Reason: PROTOCOL Stop: 07/18/18 12:54 Nitroglycerin (Nitrostat) 0.4 mg SL Q5M PRN PRN Reason: Chest Pain Stop: 07/15/18 16:05 Simvastatin (Zocor) 20 mg PO HS [facility]; Protocol Stop: 07/15/18 20:59 Last Admin: 05/24/18 23:41 Dose: 20 mg General: No acute distress HEENT: Atraumatic Neck: Supple Cardiovascular: Regular rate, Normal S1, Normal S2 Lungs: Clear to auscultation Assessment/Plan - Problem List Patient Problems: All Active Problems Dementia (Acute) F03.90 Failure to thrive (Acute) [id number] HTN (hypertension) (Acute) I10 Hyperlipidemia (Acute) E78.5 Osteoarthritis (Acute) M19.90 Parkinsons disease (Acute) G20 - Plan Plan: cpm Nutritional Asmnt/Malnutr-PDOC - Dietary Evaluation Malnutrition Findings (Please click <Entered> for more info): Nutritional Asmnt/Malnutrition Start: 05/17/18 10: 38 Text: Status: Complete Freq: Protocol: Document 05/19/18 17:33 LCHENG (Rec: 05/19/18 17:51 LCLORIG [email or web address]) Nutritional Asmnt/Malnutrition Patient General Information Nutritional Screening High Risk Diagnosis dehydration, FTT Pertinent Medical Hx/Surgical Hx OA, HTN, parkinson, hyperlipidemia Subjective Information Pt seen lying in bed at time of visit, drowsy and non verbal. Per RN, pt has been refusing food x 3 days, only taking juice. Pt had swallow eval in the afternoon and failed. Pt now is on NPO. is considering PEG. Current Diet Order/ Nutrition Support NPO Pertinent Medications D5w, culturelle, levaquin Pertinent Labs 05/19 Cl 108, BUN 43, glucose 154, POC 183 Nutritional Hx/Data Height 1.83 m Height (Calculated Centimeters) 182.9 Current Weight (lbs) 53.524 kg Weight (Calculated Kilograms) 53.5 Weight (Calculated Grams) 24964.9 [place] Body Weight 178 Body Mass Index (BMI) 16.0 Weight Status Underweight GI Symptoms GI Symptoms None Last BM none Difficult in: Chewing Swallowing Skin Integrity/Comment: pressure area reddened to sacrum, abrasion reddened to right elbow, redded to right hip Current %PO Negligible < 25% Estimated Nutritional Goals BEE in Kcals: Using Current wt Calories/Kcals/Kg 30-35 Kcals Calculated 2540-9032 Protein: Using Current wt Protein g/k.2-1.4 Protein Calculated 65-75 Fluid: ml 1620-1890ml (1ml/kcal) Nutritional Problem 1. Problem Problem chewing/swallowing difficulty Etiology possible weakness and mental status Signs/Symptoms: pt failed swallow eval and on NPO Intervention/Recommendation Comments 1. Monitor NPO status. Consider alternative nutrition route. 2. Monitor wt, labs and skin integrity 3. F/U as high risk in 2-3 days, 05/21-05/22 Expected Outcomes/Goals Expected Outcomes/Goals 1. PO intake to meet at least 75% of nutritional needs via alternative nutrition route. 2. Wt stability, change toward to IBW, skin integrity to improve, labs to approach WNL.
[2018-05-25] MEDS: Levofloxacin 500mg/100mL 500 MG/100 ML BAG IV SCH (16:47)
[2018-05-26] MEDS: Dextrose 5% 1,000 ML IV SCH ×3 (00:28→22:30)
[2018-05-26 06:53] LABS: % BASOPHILS 0.6 % (0.0-2.0); % EOSINOPHILS 1.1 % (0.0-5.0); % LYMPHOCYTES 14.8 % (20.0-50.0); % MONOCYTES 8.7 % (2.0-10.0); % NEUTROPHILS 74.8 % (40.0-80.0); EOSINOPHILE ABSOLUTE 0.1 Th/cmm (0.1-0.4); HEMATOCRIT 38.2 % (41.0-60); HEMOGLOBIN 12.9 gm/dL (12-16); LYMPHOCYTE ABSOLUTE 1.2 Th/cmm (1.5-3.0); MEAN CELL VOLUME 91.1 fl (80-99); MEAN CORPUSCULAR HEMOGLOBIN 30.6 pg (27.0-31.0); MEAN CORPUSCULAR HGB CONC 33.6 pg (28.0-36.0); MEAN PLATELET VOLUME 8.8 fl; MONOCYTE ABSOLUTE 0.7 Th/cmm (0.3-1.0); NEUTROPHILE ABSOLUTE 5.9 Th/cmm (1.8-8.0); PLATELET COUNT 304 Th/cmm (150-400); RED CELL DISTRIBUTION WIDTH 12.2 % (11.5-20.0); WHITE BLOOD COUNT 7.9 Th/cmm (4.8-10.8)
[2018-05-26 07:02] LABS: PROTHROMBIN TIME (TEST) 10.4 SECONDS (9.5-11.5)
[2018-05-26 07:04] LABS: ALB/GLOB RATIO 1.1 (1.0-1.8); ALBUMIN 3.3 gm/dL (4.2-5.5); ALKALINE PHOSPHATASE 89 U/L (34-104); ANION GAP 7.7 (7.0-16.0); BILIRUBIN,TOTAL 0.5 mg/dL (0.3-1.0); BUN - UREA NITROGEN 19 mg/dL (7-25); CALCIUM SERUM 9.6 mg/dL (8.6-10.3); CARBON DIOXIDE 33.5 mEq/L (21.0-31.0); CHLORIDE 97 mEq/L (98-107); GLUCOSE 146 mg/dL (70-105); POTASSIUM SERUM 4.2 mEq/L (3.5-5.1); SGOT 15 U/L (13-39); SGPT/ALT 5 U/L (7-52); SODIUM SERUM 134 mEq/L (136-145); TOTAL PROTEIN,SERUM 6.4 gm/dL (6.0-8.3)
[2018-05-26] MEDS ORDERED: Lidocaine 2% Gel 5 mL TP ONE (08:35)
[2018-05-26] MEDS ORDERED: Propofol 10 mg/mL 20mL Vial **SURGERY USE ONLY IV ONE (08:35)
[2018-05-26] MEDS: Lactobacillus Rhamnosus GG 15 Billion CFU CAP.SPRINK PO SCH (08:38)
--- NOTE | 2018-05-26 16:01 | General Progress Note ---
Subjective - Review of Systems Events since last encounter: no signs of pain Objective - Results Result Diagrams: 05/26/18 06:20 05/26/18 06:20 Recent Labs: Laboratory Last Values WBC 7.9 Th/cmm (4.8-10.8) 05/26/18 06:20 RBC 4.20 Mil/cmm (3.80-5.80) 05/26/18 06:20 Hgb 12.9 gm/dL (12-16) 05/26/18 06:20 Hct 38.2 % (41.0-60) L 05/26/18 06:20 MCV 91.1 fl (80-99) 05/26/18 06:20 MCH 30.6 pg (27.0-31.0) 05/26/18 06:20 MCHC Differential 33.6 pg (28.0-36.0) 05/26/18 06:20 RDW 12.2 % (11.5-20.0) 05/26/18 06:20 Plt Count 304 Th/cmm (150-400) 05/26/18 06:20 MPV 8.8 fl 05/26/18 06:20 Add Manual Diff YES 05/20/18 05:30 Neutrophils % 74.8 % (40.0-80.0) 05/26/18 06:20 Band Neutrophils % 1 % (0-10) 05/20/18 05:30 Lymphocytes % 14.8 % (20.0-50.0) L 05/26/18 06:20 Monocytes % 8.7 % (2.0-10.0) 05/26/18 06:20 Eosinophils % 1.1 % (0.0-5.0) 05/26/18 06:20 Basophils % 0.6 % (0.0-2.0) 05/26/18 06:20 Neutrophils (Manual) 80 % (40-80) 05/20/18 05:30 Lymphocytes 12 % (20-50) L 05/20/18 05:30 Monocytes 7 % (2-10) 05/20/18 05:30 Eosinophils 0 % (0-5) 05/20/18 05:30 Basophils 0 % (0-3) 05/20/18 05:30 PT 10.4 SECONDS (9.5-11.5) 05/26/18 06:20 INR 1.00 (0.5-1.4) 05/26/18 06:20 PTT (Actin FS) 27.0 SECONDS (26.0-38.0) 05/26/18 06:20 Sodium 134 mEq/L (136-145) L 05/26/18 06:20 Potassium 4.2 mEq/L (3.5-5.1) 05/26/18 06:20 Chloride 97 mEq/L (98-107) L 05/26/18 06:20 Carbon Dioxide 33.5 mEq/L (21.0-31.0) H 05/26/18 06:20 Anion Gap 7.7 (7.0-16.0) 05/26/18 06:20 BUN 19 mg/dL (7-25) 05/26/18 06:20 Creatinine 1.0 mg/dL (0.7-1.3) 05/26/18 06:20 Est GFR ( Amer) TNP 05/26/18 06:20 Est GFR (Non-Af Amer) TNP 05/26/18 06:20 BUN/Creatinine Ratio 19.0 05/26/18 06:20 Glucose 146 mg/dL (70-105) H 05/26/18 06:20 POC Glucose 183 MG/DL (70 - 105) H 05/19/18 11:43 Whole Bld Lactic Acid 1.37 mmol/L (0.60-1.99) 05/16/18 17:30 Calcium 9.6 mg/dL (8.6-10.3) 05/26/18 06:20 Magnesium 2.2 mg/dL (1.9-2.7) 05/24/18 06:10 Total Bilirubin 0.5 mg/dL (0.3-1.0) 05/26/18 06:20 AST 15 U/L (13-39) 05/26/18 06:20 ALT 5 U/L (7-52) L 05/26/18 06:20 Alkaline Phosphatase 89 U/L (34-104) 05/26/18 06:20 Total Protein 6.4 gm/dL (6.0-8.3) 05/26/18 06:20 Albumin 3.3 gm/dL (4.2-5.5) L 05/26/18 06:20 Globulin 3.1 gm/dL 05/26/18 06:20 Albumin/Globulin Ratio 1.1 (1.0-1.8) 05/26/18 06:20 Urine Source CATH 05/17/18 15:45 Urine Color YELLOW 05/17/18 15:45 Urine Clarity CLEAR (CLEAR) 05/17/18 15:45 Urine pH 6.0 (4.6 - 8.0) 05/17/18 15:45 Ur Specific [place] 1.010 (1.005-1.030) 05/17/18 15:45 Urine Protein TRACE mg/dL (NEGATIVE) 05/17/18 15:45 Urine Glucose (UA) >=1000 mg/dL (NEGATIVE) H 05/17/18 15:45 Urine Ketones NEGATIVE mg/dL (NEGATIVE) 05/17/18 15:45 Urine Blood MODERATE (NEGATIVE) H 05/17/18 15:45 Urine Nitrate NEGATIVE (NEGATIVE) 05/17/18 15:45 Urine Bilirubin NEGATIVE (NEGATIVE) 05/17/18 15:45 Urine Urobilinogen 0.2 E.U./dL (0.2 - 1.0) 05/17/18 15:45 Ur Leukocyte Esterase NEGATIVE (NEGATIVE) 05/17/18 15:45 Urine RBC 5-10 /hpf (0-5) H 05/17/18 15:45 Urine WBC 0-2 /hpf (0-5) 05/17/18 15:45 Ur Epithelial Cells FEW /lpf (FEW) 05/17/18 15:45 Urine Bacteria 1+ /hpf (NONE SEEN) H 05/17/18 15:45 Fine Granular Casts 0-2 /lpf (NONE SEEN) H 05/17/18 15:45 Urine Mucus FEW /lpf (FEW) 05/17/18 15:45 Urine Osmolality 757 mOsmol/kg 05/17/18 15:45 Ur Random Sodium 35 mmol/L 05/17/18 15:45 Urine Creatinine 83.0 mg/dl (39.0-259.0) 05/17/18 15:45 - Physical Exam Vitals and I&O: Vital Signs Temp 98.5 F 05/26/18 15:23 Pulse 86 05/26/18 15:23 Resp 18 05/26/18 15:23 BP 110/63 05/26/18 15:23 Pulse Ox 97 05/26/18 15:23 Intake & Output 05/25/18 05/26/18 05/26/18 18:59 06:59 18:59 Intake Total 2000 1200 Output Total 1700 950 Balance 300 250 Weight (lbs) 54.431 kg 54.431 kg Intake: Intake, IV Amount 1100 1000 Dextrose 5% 1,000 ml @ 1000 1000 125 mls/hr IV .Q8H REPLACED BY [facility] Rx #:[id number] Levofloxacin 500mg/100mL 100 500 mg In 100 ml @ 100 mls/hr IV Q24HR REPLACED BY [facility] Rx#: [id number] Oral 0 Tube Feeding 600 200 Other 300 Output: Urine 1700 950 Other: Weight Source Bedscale Bedscale Active Medications: Current Medications Acetaminophen (Tylenol) 650 mg PO Q4HR PRN PRN Reason: Mild Pain / Temp above 100 Stop: 07/15/18 16:05 Amlodipine Besylate (Norvasc) 2.5 mg PO DAILY [facility] Stop: 07/16/18 08:59 Last Admin: 05/26/18 08:38 Dose: Not Given Carbidopa/Levodopa (Sinemet 25mg-100 Mg) 1 tab PO Q6HR [facility]PL[facility] BY [facility] Stop: 07/15/18 17:59 Last Admin: 05/26/18 11:37 Dose: Not Given Entacapone (Comtan) 200 mg PO Q6HR [facility]PL[facility]ED BY [facility] Stop: 07/15/18 17:59 Last Admin: 05/26/18 11:37 Dose: Not Given Escitalopram Oxalate (Lexapro) 10 mg PO DAILY [facility]; Protocol Stop: 07/22/18 08:59 Last Admin: 05/26/18 08:38 Dose: Not Given Gabapentin (Neurontin) 100 mg PO BID REPL[facility]ED BY [facility] Stop: 07/15/18 16:59 Last Admin: 05/26/18 08:38 Dose: Not Given Dextrose (D5w) 1,000 mls @ 125 mls/hr IV .Q8H REPL[facility]ED BY [facility] Stop: 07/16/18 13:25 Last Admin: 05/26/18 00:28 Dose: 125 mls/hr Levofloxacin (Levaquin Pb) 500 mg in 100 mls @ 100 mls/hr IV Q24HR REPL[facility]ED BY [facility] Stop: 07/21/18 16:59 Last Infusion: 05/25/18 17:47 Dose: Infused Lactobacillus Rhamnosus (Culturelle 15b) 1 each PO DAILY [facility] Stop: 07/16/18 08:59 Last Admin: 05/26/18 08:38 Dose: Not Given Magnesium Hydroxide (Milk Of Magnesia) 30 ml PO HS PRN PRN Reason: Constipation Stop: 07/15/18 16:05 Memantine (Namenda) 5 mg PO DAILY [facility] Stop: 07/16/18 08:59 Last Admin: 05/26/18 08:38 Dose: Not Given Miscellaneous (Probiotic Screen) 1 ea MC PRN PRN PRN Reason: PROTOCOL Stop: 07/18/18 12:54 Nitroglycerin (Nitrostat) 0.4 mg SL Q5M PRN PRN Reason: Chest Pain Stop: 07/15/18 16:05 Simvastatin (Zocor) 20 mg PO HS [facility]; Protocol Stop: 07/15/18 20:59 Last Admin: 05/25/18 21:37 Dose: 20 mg General: No acute distress HEENT: Atraumatic Neck: Supple Cardiovascular: Regular rate, Normal S1, Normal S2 Lungs: Clear to auscultation Assessment/Plan - Problem List Patient Problems: All Active Problems Dementia (Acute) F03.90 Failure to thrive (Acute) [id number] HTN (hypertension) (Acute) I10 Hyperlipidemia (Acute) E78.5 Osteoarthritis (Acute) M19.90 Parkinsons disease (Acute) G20 - Plan Plan: cpm Nutritional Asmnt/Malnutr-PDOC - Dietary Evaluation Malnutrition Findings (Please click <Entered> for more info): Nutritional Asmnt/Malnutrition Start: 05/17/18 10: 38 Text: Status: Complete Freq: Protocol: Document 05/19/18 17:33 LCLORIG (Rec: 05/19/18 17:51 LCHENG [email or web address]) Nutritional Asmnt/Malnutrition Patient General Information Nutritional Screening High Risk Diagnosis dehydration, FTT Pertinent Medical Hx/Surgical Hx OA, HTN, parkinson, hyperlipidemia Subjective Information Pt seen lying in bed at time of visit, drowsy and non verbal. Per RN, pt has been refusing food x 3 days, only taking juice. Pt had swallow eval in the afternoon and failed. Pt now is on NPO. MD is considering PEG. Current Diet Order/ Nutrition Support NPO Pertinent Medications D5w, culturelle, levaquin Pertinent Labs 05/19 Cl 108, BUN 43, glucose 154, POC 183 Nutritional Hx/Data Height 1.83 m Height (Calculated Centimeters) 182.9 Current Weight (lbs) 53.524 kg Weight (Calculated Kilograms) 53.5 Weight (Calculated Grams) 69569.9 [place] Body Weight 178 Body Mass Index (BMI) 16.0 Weight Status Underweight GI Symptoms GI Symptoms None Last BM none Difficult in: Chewing Swallowing Skin Integrity/Comment: pressure area reddened to sacrum, abrasion reddened to right elbow, redded to right hip Current %PO Negligible < 25% Estimated Nutritional Goals BEE in Kcals: Using Current wt Calories/Kcals/Kg 30-35 Kcals Calculated 1822-4775 Protein: Using Current wt Protein g/k.2-1.4 Protein Calculated 65-75 Fluid: ml 1620-1890ml (1ml/kcal) Nutritional Problem 1. Problem Problem chewing/swallowing difficulty Etiology possible weakness and mental status Signs/Symptoms: pt failed swallow eval and on NPO Intervention/Recommendation Comments 1. Monitor NPO status. Consider alternative nutrition route. 2. Monitor wt, labs and skin integrity 3. F/U as high risk in 2-3 days, 05/21-05/22 Expected Outcomes/Goals Expected Outcomes/Goals 1. PO intake to meet at least 75% of nutritional needs via alternative nutrition route. 2. Wt stability, change toward to IBW, skin integrity to improve, labs to approach WNL.
[2018-05-26] MEDS: Levofloxacin 500mg/100mL 500 MG/100 ML BAG IV SCH (16:29)
--- NOTE | 2018-05-26 22:02 | Operative Report ---
DATE OF SURGERY: 05/26/2018 PROCEDURES PERFORMED: 1. EGD with biopsy. 2. EGD with PEG tube placement. PREOPERATIVE DIAGNOSES: 1. Failure to thrive. 2. Oropharyngeal dysphagia. POSTOPERATIVE DIAGNOSES: 1. Moderate erosive gastritis and NG tube trauma, status post gastric biopsies. 2. Successful 20-Divehi PEG tube placement. INDICATIONS: This is a 77-year-old male who was brought into the hospital on 05/19/2018 for failure to thrive, who also failed a swallow evaluation. We had been waiting for conservatorship to approve an EGD with PEG tube placement. He had an NG tube in place during this time. SEDATION: Per anesthesia. CONSENT: Informed consent was obtained through the conservator after explaining the risks, benefits, and alternatives of the procedure, which were understood and so stated. DESCRIPTION OF PROCEDURE: EGD with PEG tube placement: While the patient was in a supine position, a GIF-H180 scope was introduced through the patient's mouth, into the esophagus, through the stomach, and up to the second portion of the duodenum. Here, the scope was withdrawn carefully examining the color, texture, anatomy, and mucosa. The D1 and D2 portions appeared normal. The scope was then brought back to the gastric body where retroflexion was performed, which was normal. There was a moderate amount of erosive gastritis seen in the stomach. We obtained biopsies to rule out H. pylori. Using transillumination, we identified a proper spot on the outside of the stomach wall and used a finder needle. A 1-cm incision was made with a scalpel and a trocar was advanced through this hole that was created and a guidewire was fed through this. This was then snared by the endoscope and then brought out the mouth and then a 20-Divehi G-tube was then attached to the guidewire and then pulled out the stomach and secured at the 3-cm position. We did confirm placement with EGD and photo documented this. The scope was then brought back to the GE junction present at 40 cm from the incisors. There was a moderate amount of food debris that was suctioned and washed down to the stomach. The scope was then drawn out and the patient tolerated this procedure well. RECOMMENDATIONS: 1. NPO for 4 hours. 2. Free water flushes q. 2 hours with 50 mL of sterile water until the patient is at goal rate. 3. Check gastric residuals every nursing shift and hold if residuals are greater than 200 mL. 4. Dietary consult and feeding recommendations per dietary. Thank you for allowing us to participate in this patient's care. JOB# [id number]
[2018-05-27] MEDS: Dextrose 5% 1,000 ML IV SCH (06:45)
--- NOTE | 2018-05-27 08:53 | GI Progress Note ---
Subjective - Review of Systems Service Date: 05/27/18 Subjective: Tolerating G tube feeding at 60cc/hr Objective - Results Result Diagrams: 05/26/18 06:20 05/26/18 06:20 Recent Labs: Laboratory Last Values WBC 7.9 Th/cmm (4.8-10.8) 05/26/18 06:20 RBC 4.20 Mil/cmm (3.80-5.80) 05/26/18 06:20 Hgb 12.9 gm/dL (12-16) 05/26/18 06:20 Hct 38.2 % (41.0-60) L 05/26/18 06:20 MCV 91.1 fl (80-99) 05/26/18 06:20 MCH 30.6 pg (27.0-31.0) 05/26/18 06:20 MCHC Differential 33.6 pg (28.0-36.0) 05/26/18 06:20 RDW 12.2 % (11.5-20.0) 05/26/18 06:20 Plt Count 304 Th/cmm (150-400) 05/26/18 06:20 MPV 8.8 fl 05/26/18 06:20 Add Manual Diff YES 05/20/18 05:30 Neutrophils % 74.8 % (40.0-80.0) 05/26/18 06:20 Band Neutrophils % 1 % (0-10) 05/20/18 05:30 Lymphocytes % 14.8 % (20.0-50.0) L 05/26/18 06:20 Monocytes % 8.7 % (2.0-10.0) 05/26/18 06:20 Eosinophils % 1.1 % (0.0-5.0) 05/26/18 06:20 Basophils % 0.6 % (0.0-2.0) 05/26/18 06:20 Neutrophils (Manual) 80 % (40-80) 05/20/18 05:30 Lymphocytes 12 % (20-50) L 05/20/18 05:30 Monocytes 7 % (2-10) 05/20/18 05:30 Eosinophils 0 % (0-5) 05/20/18 05:30 Basophils 0 % (0-3) 05/20/18 05:30 PT 10.4 SECONDS (9.5-11.5) 05/26/18 06:20 INR 1.00 (0.5-1.4) 05/26/18 06:20 PTT (Actin FS) 27.0 SECONDS (26.0-38.0) 05/26/18 06:20 Sodium 134 mEq/L (136-145) L 05/26/18 06:20 Potassium 4.2 mEq/L (3.5-5.1) 05/26/18 06:20 Chloride 97 mEq/L (98-107) L 05/26/18 06:20 Carbon Dioxide 33.5 mEq/L (21.0-31.0) H 05/26/18 06:20 Anion Gap 7.7 (7.0-16.0) 05/26/18 06:20 BUN 19 mg/dL (7-25) 05/26/18 06:20 Creatinine 1.0 mg/dL (0.7-1.3) 05/26/18 06:20 Est GFR ( Amer) TNP 05/26/18 06:20 Est GFR (Non-Af Amer) TNP 05/26/18 06:20 BUN/Creatinine Ratio 19.0 05/26/18 06:20 Glucose 146 mg/dL (70-105) H 05/26/18 06:20 POC Glucose 183 MG/DL (70 - 105) H 05/19/18 11:43 Whole Bld Lactic Acid 1.37 mmol/L (0.60-1.99) 05/16/18 17:30 Calcium 9.6 mg/dL (8.6-10.3) 05/26/18 06:20 Magnesium 2.2 mg/dL (1.9-2.7) 05/24/18 06:10 Total Bilirubin 0.5 mg/dL (0.3-1.0) 05/26/18 06:20 AST 15 U/L (13-39) 05/26/18 06:20 ALT 5 U/L (7-52) L 05/26/18 06:20 Alkaline Phosphatase 89 U/L (34-104) 05/26/18 06:20 Total Protein 6.4 gm/dL (6.0-8.3) 05/26/18 06:20 Albumin 3.3 gm/dL (4.2-5.5) L 05/26/18 06:20 Globulin 3.1 gm/dL 05/26/18 06:20 Albumin/Globulin Ratio 1.1 (1.0-1.8) 05/26/18 06:20 Urine Source CATH 05/17/18 15:45 Urine Color YELLOW 05/17/18 15:45 Urine Clarity CLEAR (CLEAR) 05/17/18 15:45 Urine pH 6.0 (4.6 - 8.0) 05/17/18 15:45 Ur Specific [place] 1.010 (1.005-1.030) 05/17/18 15:45 Urine Protein TRACE mg/dL (NEGATIVE) 05/17/18 15:45 Urine Glucose (UA) >=1000 mg/dL (NEGATIVE) H 05/17/18 15:45 Urine Ketones NEGATIVE mg/dL (NEGATIVE) 05/17/18 15:45 Urine Blood MODERATE (NEGATIVE) H 05/17/18 15:45 Urine Nitrate NEGATIVE (NEGATIVE) 05/17/18 15:45 Urine Bilirubin NEGATIVE (NEGATIVE) 05/17/18 15:45 Urine Urobilinogen 0.2 E.U./dL (0.2 - 1.0) 05/17/18 15:45 Ur Leukocyte Esterase NEGATIVE (NEGATIVE) 05/17/18 15:45 Urine RBC 5-10 /hpf (0-5) H 05/17/18 15:45 Urine WBC 0-2 /hpf (0-5) 05/17/18 15:45 Ur Epithelial Cells FEW /lpf (FEW) 05/17/18 15:45 Urine Bacteria 1+ /hpf (NONE SEEN) H 05/17/18 15:45 Fine Granular Casts 0-2 /lpf (NONE SEEN) H 05/17/18 15:45 Urine Mucus FEW /lpf (FEW) 05/17/18 15:45 Urine Osmolality 757 mOsmol/kg 05/17/18 15:45 Ur Random Sodium 35 mmol/L 05/17/18 15:45 Urine Creatinine 83.0 mg/dl (39.0-259.0) 05/17/18 15:45 - Physical Exam Vitals and I&O: Vital Signs Temp 98.4 F 05/27/18 04:00 Pulse 61 05/27/18 04:00 Resp 18 05/27/18 08:00 BP 95/46 05/27/18 04:00 Pulse Ox 96 05/27/18 04:00 Intake & Output 05/26/1818 05/27/18 18:59 06:59 18:59 Intake Total 1200 1610.417 Balance 1200 1610.417 Weight (lbs) 54.431 kg Intake: Intake, IV Amount 1000 1610.417 Dextrose 5% 1,000 ml @ 1000 1610.417 125 mls/hr IV .Q8H [facility] Rx #:[id number] Tube Feeding 200 Other: # Voids 3 # Bowel Movements 0 Weight Source Bedscale Active Medications: Current Medications Acetaminophen (Tylenol) 650 mg PO Q4HR PRN PRN Reason: Mild Pain / Temp above 100 Stop: 07/15/18 16:05 Last Admin: 05/26/18 22:31 Dose: 650 mg Amlodipine Besylate (Norvasc) 2.5 mg PO DAILY [facility] Stop: 07/16/18 08:59 Last Admin: 05/26/18 08:38 Dose: Not Given Carbidopa/Levodopa (Sinemet 25mg-100 Mg) 1 tab PO Q6HR [facility] Stop: 07/15/18 17:59 Last Admin: 05/27/18 06:43 Dose: 1 tab Entacapone (Comtan) 200 mg PO Q6HR [facility] Stop: 07/15/18 17:59 Last Admin: 05/27/18 06:43 Dose: 200 mg Escitalopram Oxalate (Lexapro) 10 mg PO DAILY [facility]; Protocol Stop: 07/22/18 08:59 Last Admin: 05/26/18 08:38 Dose: Not Given Gabapentin (Neurontin) 100 mg PO BID [facility] Stop: 07/15/18 16:59 Last Admin: 05/26/18 17:35 Dose: 100 mg Dextrose (D5w) 1,000 mls @ 125 mls/hr IV .Q8H [facility] Stop: 07/16/18 13:25 Last Admin: 05/27/18 06:45 Dose: 125 mls/hr Levofloxacin (Levaquin Pb) 500 mg in 100 mls @ 100 mls/hr IV Q24HR [facility] Stop: 07/21/18 16:59 Last Admin: 05/26/18 16:29 Dose: 100 mls/hr Lactobacillus Rhamnosus (Culturelle 15b) 1 each PO DAILY [facility] Stop: 07/16/18 08:59 Last Admin: 05/26/18 08:38 Dose: Not Given Magnesium Hydroxide (Milk Of Magnesia) 30 ml PO HS PRN PRN Reason: Constipation Stop: 07/15/18 16:05 Memantine (Namenda) 5 mg PO DAILY [facility] Stop: 07/16/18 08:59 Last Admin: 05/26/18 08:38 Dose: Not Given Miscellaneous (Probiotic Screen) 1 ea [facility] PRN PRN PRN Reason: PROTOCOL Stop: 07/18/18 12:54 Nitroglycerin (Nitrostat) 0.4 mg SL Q5M PRN PRN Reason: Chest Pain Stop: 07/15/18 16:05 Simvastatin (Zocor) 20 mg PO HS [facility]; Protocol Stop: 07/15/18 20:59 Last Admin: 05/26/18 21:31 Dose: 20 mg General: No acute distress HEENT: Atraumatic Neck: Supple Cardiovascular: Regular rate Abdomen: Bowel sounds, Soft, Other (G tube c/d/i), no Tender, no Hepatomegaly, no Splenomegaly, no Rebound, no Mass, no Guarding Assessment/Plan - Problem List Patient Problems: All Active Problems Dementia (Acute) F03.90 Failure to thrive (Acute) [id number] HTN (hypertension) (Acute) I10 Hyperlipidemia (Acute) E78.5 Osteoarthritis (Acute) M19.90 Parkinsons disease (Acute) G20 - Assessment Assessment: # Failure to thrive # Dysphagia with failed swallow eval EGD and G tube placement on 05/26, now tolerating continuous type feeding Plan: - cont G tube feeds at goal - hold for residual > 100cc - flush with 100cc water every 6 hours - skin care around G tube GI to see as needed, please call with any questions
[2018-05-27] MEDS: Lactobacillus Rhamnosus GG 15 Billion CFU CAP.SPRINK PO SCH (09:46)
--- NOTE | 2018-05-27 11:49 | Pathology Report ---
[id number] Collection date: 05/26/2018 Surgeon: Dr. Stvee Sanchez Specimen Description: Gastric biopsy Gross Description: Received in formalin is a single montelongo soft tissue fragment measuring 0.2 cm in greatest dimension. Totally submitted in one cassette. Microscopic Description: The histologic sections show gastric mucosa with chronic inflammation present consisting of lymphocytes and plasma cells. The Giemsa stain shows no evidence for Helicobacter pylori. Diagnosis: 1. Chronic gastritis, gastric biopsy. 2. The Giemsa stain is negative for Helicobacter pylori. [facility]# [id number] [facility]
--- NOTE | 2018-05-27 13:22 | Internal Medicine Prog Note ---
Internal Medicine Subjective - Subjective Service Date: 05/27/18 Patient seen and examined:: with staff Patient is:: awake Per staff patient has:: tolerating meds Internal Medicine Objective - Results Result Diagrams: 05/26/18 06:20 05/26/18 06:20 Recent Labs: Laboratory Last Values WBC 7.9 Th/cmm (4.8-10.8) 05/26/18 06:20 RBC 4.20 Mil/cmm (3.80-5.80) 05/26/18 06:20 Hgb 12.9 gm/dL (12-16) 05/26/18 06:20 Hct 38.2 % (41.0-60) L 05/26/18 06:20 MCV 91.1 fl (80-99) 05/26/18 06:20 MCH 30.6 pg (27.0-31.0) 05/26/18 06:20 MCHC Differential 33.6 pg (28.0-36.0) 05/26/18 06:20 RDW 12.2 % (11.5-20.0) 05/26/18 06:20 Plt Count 304 Th/cmm (150-400) 05/26/18 06:20 MPV 8.8 fl 05/26/18 06:20 Add Manual Diff YES 05/20/18 05:30 Neutrophils % 74.8 % (40.0-80.0) 05/26/18 06:20 Band Neutrophils % 1 % (0-10) 05/20/18 05:30 Lymphocytes % 14.8 % (20.0-50.0) L 05/26/18 06:20 Monocytes % 8.7 % (2.0-10.0) 05/26/18 06:20 Eosinophils % 1.1 % (0.0-5.0) 05/26/18 06:20 Basophils % 0.6 % (0.0-2.0) 05/26/18 06:20 Neutrophils (Manual) 80 % (40-80) 05/20/18 05:30 Lymphocytes 12 % (20-50) L 05/20/18 05:30 Monocytes 7 % (2-10) 05/20/18 05:30 Eosinophils 0 % (0-5) 05/20/18 05:30 Basophils 0 % (0-3) 05/20/18 05:30 PT 10.4 SECONDS (9.5-11.5) 05/26/18 06:20 INR 1.00 (0.5-1.4) 05/26/18 06:20 PTT (Actin FS) 27.0 SECONDS (26.0-38.0) 05/26/18 06:20 Sodium 134 mEq/L (136-145) L 05/26/18 06:20 Potassium 4.2 mEq/L (3.5-5.1) 05/26/18 06:20 Chloride 97 mEq/L (98-107) L 05/26/18 06:20 Carbon Dioxide 33.5 mEq/L (21.0-31.0) H 05/26/18 06:20 Anion Gap 7.7 (7.0-16.0) 05/26/18 06:20 BUN 19 mg/dL (7-25) 05/26/18 06:20 Creatinine 1.0 mg/dL (0.7-1.3) 05/26/18 06:20 Est GFR ( Amer) TNP 05/26/18 06:20 Est GFR (Non-Af Amer) TNP 05/26/18 06:20 BUN/Creatinine Ratio 19.0 05/26/18 06:20 Glucose 146 mg/dL (70-105) H 05/26/18 06:20 POC Glucose 183 MG/DL (70 - 105) H 05/19/18 11:43 Whole Bld Lactic Acid 1.37 mmol/L (0.60-1.99) 05/16/18 17:30 Calcium 9.6 mg/dL (8.6-10.3) 05/26/18 06:20 Magnesium 2.2 mg/dL (1.9-2.7) 05/24/18 06:10 Total Bilirubin 0.5 mg/dL (0.3-1.0) 05/26/18 06:20 AST 15 U/L (13-39) 05/26/18 06:20 ALT 5 U/L (7-52) L 05/26/18 06:20 Alkaline Phosphatase 89 U/L (34-104) 05/26/18 06:20 Total Protein 6.4 gm/dL (6.0-8.3) 05/26/18 06:20 Albumin 3.3 gm/dL (4.2-5.5) L 05/26/18 06:20 Globulin 3.1 gm/dL 05/26/18 06:20 Albumin/Globulin Ratio 1.1 (1.0-1.8) 05/26/18 06:20 Urine Source CATH 05/17/18 15:45 Urine Color YELLOW 05/17/18 15:45 Urine Clarity CLEAR (CLEAR) 05/17/18 15:45 Urine pH 6.0 (4.6 - 8.0) 05/17/18 15:45 Ur Specific [place] 1.010 (1.005-1.030) 05/17/18 15:45 Urine Protein TRACE mg/dL (NEGATIVE) 05/17/18 15:45 Urine Glucose (UA) >=1000 mg/dL (NEGATIVE) H 05/17/18 15:45 Urine Ketones NEGATIVE mg/dL (NEGATIVE) 05/17/18 15:45 Urine Blood MODERATE (NEGATIVE) H 05/17/18 15:45 Urine Nitrate NEGATIVE (NEGATIVE) 05/17/18 15:45 Urine Bilirubin NEGATIVE (NEGATIVE) 05/17/18 15:45 Urine Urobilinogen 0.2 E.U./dL (0.2 - 1.0) 05/17/18 15:45 Ur Leukocyte Esterase NEGATIVE (NEGATIVE) 05/17/18 15:45 Urine RBC 5-10 /hpf (0-5) H 05/17/18 15:45 Urine WBC 0-2 /hpf (0-5) 05/17/18 15:45 Ur Epithelial Cells FEW /lpf (FEW) 05/17/18 15:45 Urine Bacteria 1+ /hpf (NONE SEEN) H 05/17/18 15:45 Fine Granular Casts 0-2 /lpf (NONE SEEN) H 05/17/18 15:45 Urine Mucus FEW /lpf (FEW) 05/17/18 15:45 Urine Osmolality 757 mOsmol/kg 05/17/18 15:45 Ur Random Sodium 35 mmol/L 05/17/18 15:45 Urine Creatinine 83.0 mg/dl (39.0-259.0) 05/17/18 15:45 - Physical Exam Vitals and I&O: Vital Signs Temp 98.9 F 05/27/18 08:00 Pulse 81 09/18/18 09:40 Resp 18 05/27/18 08:00 BP 121/61 05/27/18 09:40 Pulse Ox 98 05/27/18 08:00 Intake & Output 05/26/18 05/27/18 05/27/18 18:59 06:59 18:59 Intake Total 1200 1610.417 Balance 1200 1610.417 Weight (lbs) 120 lb Intake: Intake, IV Amount 1000 1610.417 Dextrose 5% 1,000 ml @ 1000 1610.417 125 mls/hr IV .Q8H [facility] Rx #:[id number] Tube Feeding 200 Other: # Voids 3 # Bowel Movements 0 Weight Source Bedscale Active Medications: Current Medications Acetaminophen (Tylenol) 650 mg PO Q4HR PRN PRN Reason: Mild Pain / Temp above 100 Stop: 07/15/18 16:05 Last Admin: 05/26/18 22:31 Dose: 650 mg Amlodipine Besylate (Norvasc) 2.5 mg PO DAILY [facility] Stop: 07/16/18 08:59 Last Admin: 05/27/18 09:40 Dose: Not Given Carbidopa/Levodopa (Sinemet 25mg-100 Mg) 1 tab PO Q6HR [facility] Stop: 07/15/18 17:59 Last Admin: 05/27/18 12:15 Dose: 1 tab Entacapone (Comtan) 200 mg PO Q6HR [facility] Stop: 07/15/18 17:59 Last Admin: 05/27/18 12:15 Dose: 200 mg Escitalopram Oxalate (Lexapro) 10 mg PO DAILY [facility]; Protocol Stop: 07/22/18 08:59 Last Admin: 05/27/18 09:46 Dose: 10 mg Gabapentin (Neurontin) 100 mg PO BID [facility] Stop: 07/15/18 16:59 Last Admin: 05/27/18 09:46 Dose: 100 mg Dextrose (D5w) 1,000 mls @ 125 mls/hr IV .Q8H [facility] Stop: 07/16/18 13:25 Last Admin: 05/27/18 06:45 Dose: 125 mls/hr Levofloxacin (Levaquin Pb) 500 mg in 100 mls @ 100 mls/hr IV Q24HR [facility] Stop: 07/21/18 16:59 Last Admin: 05/26/18 16:29 Dose: 100 mls/hr Lactobacillus Rhamnosus (Culturelle 15b) 1 each PO DAILY [facility] Stop: 07/16/18 08:59 Last Admin: 05/27/18 09:46 Dose: 1 each Magnesium Hydroxide (Milk Of Magnesia) 30 ml PO HS PRN PRN Reason: Constipation Stop: 07/15/18 16:05 Memantine (Namenda) 5 mg PO DAILY [facility] Stop: 07/16/18 08:59 Last Admin: 05/27/18 09:46 Dose: 5 mg Miscellaneous (Probiotic Screen) 1 ea MC PRN PRN PRN Reason: PROTOCOL Stop: 07/18/18 12:54 Nitroglycerin (Nitrostat) 0.4 mg SL Q5M PRN PRN Reason: Chest Pain Stop: 07/15/18 16:05 Simvastatin (Zocor) 20 mg PO HS [facility]; Protocol Stop: 07/15/18 20:59 Last Admin: 05/26/18 21:31 Dose: 20 mg General: weak HEENT: NC/AT, PERRLA Neck: Supple Lungs: CTAB Cardiovascular: RRR, Normal S1, Normal S2, without murmur Abdomen: soft, non-tender, non-distended, positive bowel sound Extremities: excoriation Neurological: no change Internal Medicine Assmt/Plan - Assessment Assessment: Dementia (Acute) F03.90 Failure to thrive (Acute) [id number] HTN (hypertension) (Acute) I10 Hyperlipidemia (Acute) E78.5 Osteoarthritis (Acute) M19.90 Parkinsons disease (Acute) G20 - Plan Plan: follow up labs in am continue current plan of care Nutritional Asmnt/Malnutr-PDOC - Dietary Evaluation Malnutrition Findings (Please click <Entered> for more info): Nutritional Asmnt/Malnutrition Start: 05/17/18 10: 38 Text: Status: Complete Freq: Protocol: Document 05/19/18 17:33 [place]ST[place] (Rec: 05/19/18 17:51 [id number] [id number]) Nutritional Asmnt/Malnutrition Patient General Information Nutritional Screening High Risk Diagnosis dehydration, FTT Pertinent Medical Hx/Surgical Hx OA, HTN, parkinson, hyperlipidemia Subjective Information Pt seen lying in bed at time of visit, drowsy and non verbal. Per RN, pt has been refusing food x 3 days, only taking juice. Pt had swallow eval in the afternoon and failed. Pt now is on NPO. is considering PEG. Current Diet Order/ Nutrition Support NPO Pertinent Medications D5w, culturelle, levaquin Pertinent Labs 05/19 Cl 108, BUN 43, glucose 154, POC 183 Nutritional Hx/Data Height 6 ft Height (Calculated Centimeters) 182.9 Current Weight (lbs) 118 lb Weight (Calculated Kilograms) 53.5 Weight (Calculated Grams) 75492.9 [place] Body Weight 178 Body Mass Index (BMI) 16.0 Weight Status Underweight GI Symptoms GI Symptoms None Last BM none Difficult in: Chewing Swallowing Skin Integrity/Comment: pressure area reddened to sacrum, abrasion reddened to right elbow, redded to right hip Current %PO Negligible < 25% Estimated Nutritional Goals BEE in Kcals: Using Current wt Calories/Kcals/Kg 30-35 Kcals Calculated 0066-8681 Protein: Using Current wt Protein g/k.2-1.4 Protein Calculated 65-75 Fluid: ml 1620-1890ml (1ml/kcal) Nutritional Problem 1. Problem Problem chewing/swallowing difficulty Etiology possible weakness and mental status Signs/Symptoms: pt failed swallow eval and on NPO Intervention/Recommendation Comments 1. Monitor NPO status. Consider alternative nutrition route. 2. Monitor wt, labs and skin integrity 3. F/U as high risk in 2-3 days, 05/21-05/22 Expected Outcomes/Goals Expected Outcomes/Goals 1. PO intake to meet at least 75% of nutritional needs via alternative nutrition route. 2. Wt stability, change toward to IBW, skin integrity to improve, labs to approach WNL.
[2018-05-27] MEDS: Levofloxacin 500mg/100mL 500 MG/100 ML BAG IV SCH (18:41)
[2018-05-28 08:16] LABS: HEMATOCRIT 34.2 % (41.0-60); HEMOGLOBIN 11.7 gm/dL (12-16); MEAN CELL VOLUME 88.7 fl (80-99); MEAN CORPUSCULAR HEMOGLOBIN 30.3 pg (27.0-31.0); MEAN CORPUSCULAR HGB CONC 34.2 pg (28.0-36.0); MEAN PLATELET VOLUME 8.8 fl; PLATELET COUNT 271 Th/cmm (150-400); RED BLOOD COUNT 3.86 Mil/cmm (3.80-5.80); RED CELL DISTRIBUTION WIDTH 12.2 % (11.5-20.0)
[2018-05-28 08:18] LABS: ALB/GLOB RATIO 0.9 (1.0-1.8); ALBUMIN 3.1 gm/dL (4.2-5.5); ALKALINE PHOSPHATASE 82 U/L (34-104); ANION GAP 9.5 (7.0-16.0); BILIRUBIN,TOTAL 0.6 mg/dL (0.3-1.0); BUN - UREA NITROGEN 21 mg/dL (7-25); CALCIUM SERUM 9.1 mg/dL (8.6-10.3); CARBON DIOXIDE 29.3 mEq/L (21.0-31.0); CHLORIDE 98 mEq/L (98-107); GLUCOSE 114 mg/dL (70-105); MAGNESIUM 2.1 mg/dL (1.9-2.7); POTASSIUM SERUM 3.8 mEq/L (3.5-5.1); SGOT 11 U/L (13-39); SGPT/ALT < 3 U/L (7-52); SODIUM SERUM 133 mEq/L (136-145); TOTAL PROTEIN,SERUM 6.4 gm/dL (6.0-8.3)
[2018-05-28 08:20] LABS: WHITE BLOOD COUNT 17.2 Th/cmm (4.8-10.8)
[2018-05-28 08:35] LABS: BAND NEUTROPHILE 2 % (0-10); BASOPHIL 0 % (0-3); EOSINOPHIL 0 % (0-5); LYMPHOCYTE 7 % (20-50); MONOCYTE 4 % (2-10); NEUTROPHILS 87 % (40-80)
[2018-05-28] MEDS: Lactobacillus Rhamnosus GG 15 Billion CFU CAP.SPRINK PO SCH (09:22)
[2018-05-28 12:01] LABS: MEAN PLATELET VOLUME 8.7 fl
[2018-05-28 12:09] LABS: HEMATOCRIT 37.2 % (41.0-60); HEMOGLOBIN 12.6 gm/dL (12-16); MEAN CELL VOLUME 90.3 fl (80-99); MEAN CORPUSCULAR HEMOGLOBIN 30.5 pg (27.0-31.0); MEAN CORPUSCULAR HGB CONC 33.8 pg (28.0-36.0); PLATELET COUNT 302 Th/cmm (150-400); RED BLOOD COUNT 4.12 Mil/cmm (3.80-5.80); RED CELL DISTRIBUTION WIDTH 12.3 % (11.5-20.0)
[2018-05-28 12:13] LABS: WHITE BLOOD COUNT 16.8 Th/cmm (4.8-10.8)
[2018-05-28 12:17] LABS: BAND NEUTROPHILE 1 % (0-10); BASOPHIL 0 % (0-3); EOSINOPHIL 0 % (0-5); LYMPHOCYTE 7 % (20-50); MONOCYTE 4 % (2-10); NEUTROPHILS 88 % (40-80)
--- NOTE | 2018-05-28 14:33 | Consultation ---
Consult Note - Consult Note Service Date: 05/28/18 Referring Physician: Aislnin Paez Consult Note: PHYSICIAN Consultation Note: Date of Admission: 05/16/18 Purpose of Consultation: Leukocytosis. Chief Complaint: Patient DANIEL TORRES was admitted to [facility] Medical[facility] Surgical Unit I with DEHYDRATION, FAILURE TO THRIVE. History of Present Illness: 77 year male with a past medical history of hyperlipidemia, Parkinson disease, hypertension, CK D stage II, protein calorie malnutrition, severe dementia admitted to [facility] unit for psychosis. At the [facility] unit, he was found to have poor oral intake and lethargy. Besides this, the WBC count, sodium, BUN and creatinine elevated. So he was transferred to acute MedSur unit. On initial evaluation, he was afebrile and his WC count was 13,900. Patient also diagnosed to have UTI, and Levaquin was started. His leukocytosis improved. As he required alternate means of nutrition, G-tube was placed in on 05/26/2018 by pressfitter. Today, his WBC count went up to 17,000, ID consult was called for further evaluation and management. Patient is unable to give any history, aphasic. She rarely demented and unable to communicate. Past Medical History: hyperlipidemia, Parkinson disease, hypertension, CK D stage II, protein calorie malnutrition, severe dementia Diagnoses MILD PROTEIN-CALORIE MALNUTRITION (05/16/18) HYPERLIPIDEMIA, UNSPECIFIED (05/16/18) HYPEROSMOLALITY AND HYPERNATREMIA (05/16/18) PARKINSON'S DISEASE (05/16/18) ESSENTIAL (PRIMARY) HYPERTENSION (05/16/18) UNSPECIFIED OSTEOARTHRITIS, UNSPECIFIED SITE (05/16/18) ACUTE KIDNEY FAILURE WITH TUBULAR NECROSIS (05/16/18) CHRONIC KIDNEY DISEASE, STAGE 2 (MILD) (05/16/18) URINARY TRACT INFECTION, SITE NOT SPECIFIED (05/16/18) WEAKNESS (05/16/18) ADULT FAILURE TO THRIVE (05/16/18) SIRS OF NON-INFECTIOUS ORIGIN W/O ACUTE ORGAN DYSFUNCTION (05/16/18) Allergies Allergy/AdvReac Type Severity Reaction Status Date / Time No Known Allergies Allergy Verified 05/10/18 00:46 Vital Signs Temp 98.5 F 05/28/18 04:00 Pulse 78 05/28/18 09:22 Resp 18 05/28/18 04:00 BP 110/53 05/28/18 09:22 Pulse Ox 98 05/28/18 04:00 Intake & Output 05/27/18 05/28/18 05/28/18 18:59 06:59 18:59 Intake Total 720 720 Output Total 601 Balance 720 119 Weight (lbs) 54.431 kg 54.93 kg Intake: Tube Feeding 720 720 Output: Urine 600 Stool 1 Other: # Voids 3 # Bowel Movements 0 Weight Source Bedscale Bedscale Laboratory Results - last 24 hr 05/28/18 05/28/18 05/28/18 06:00 07:30 11:39 WBC 17.2 H 16.8 H RBC 3.86 4.12 Hgb 11.7 L 12.6 Hct 34.2 L 37.2 L MCV 88.7 90.3 MCH 30.3 30.5 MCHC Differential 34.2 33.8 RDW 12.2 12.3 Plt Count 271 302 MPV 8.8 8.7 Add Manual Diff YES YES Band Neutrophils % 2 1 Neutrophils (Manual) 87 H 88 H Lymphocytes 7 L 7 L Monocytes 4 4 Eosinophils 0 0 Basophils 0 0 Sodium 133 L Potassium 3.8 Chloride 98 Carbon Dioxide 29.3 Anion Gap 9.5 BUN 21 Creatinine 1.0 Est GFR ( Amer) TNP Est GFR (Non-Af Amer) TNP BUN/Creatinine Ratio 21.0 Glucose 114 H Calcium 9.1 Magnesium 2.1 Total Bilirubin 0.6 AST 11 L ALT < 3 L Alkaline Phosphatase 82 Total Protein 6.4 Albumin 3.1 L Globulin 3.3 Albumin/Globulin Ratio 0.9 L Home Medication Medication Instructions Recorded Type Acetaminophen [Tylenol] 650 mg PO Q4HR PRN tab 05/16/18 Rx Carbidopa/Levodopa 25/100 mg 1 tab PO Q6HR tab 05/16/18 Rx [Sinemet 25mg-100 mg] Entacapone [Comtan] 200 mg PO Q6HR tab 05/16/18 Rx Escitalopram Oxalate [Lexapro] 10 mg PO DAILY tab 05/16/18 Rx Gabapentin [Neurontin*] 100 mg PO BID cap 05/16/18 Rx Lactobacillus Rhamnosus GG 15B 1 each PO DAILY cap.sprink 05/16/18 Rx [Culturelle 15B] Lorazepam [Ativan] 0.5 mg PO Q4HR PRN tab 05/16/18 Rx Magnesium Hydroxide [Milk of 30 ml PO HS PRN udc 05/16/18 Rx Magnesia] Memantine [Namenda] 5 mg PO DAILY tab 05/16/18 Rx Nitroglycerin [Nitrostat*] 0.4 mg SL Q5M PRN tab 05/16/18 Rx Simvastatin [Zocor*] 20 mg PO HS tab 05/16/18 Rx Temazepam [Restoril*] 15 mg PO HS PRN cap 05/16/18 Rx Zolpidem Tartrate [Ambien] 5 mg PO HS PRN tab 05/16/18 Rx amLODIPine Besylate [Norvasc] 2.5 mg PO DAILY tab 05/16/18 Rx Current Medications Generic Name Dose Route Start Last Admin Trade Name Freq PRN Reason Stop Dose Admin Acetaminophen 650 mg 05/16/18 16:06 05/26/18 22:31 Tylenol PO 07/15/18 16:05 650 mg Q4HR PRN Administration Mild Pain / Temp above 100 Amlodipine Besylate 2.5 mg 05/17/18 09:00 05/28/18 09:22 Norvasc PO 07/16/18 08:59 2.5 mg DAILY [facility] Administration Carbidopa/Levodopa 1 tab 05/16/18 18:00 05/28/18 14:16 Sinemet 25mg-100 Mg PO 07/15/18 17:59 1 tab Q6HR [facility] Administration Entacapone 200 mg 05/16/18 18:00 05/28/18 14:23 Comtan PO 07/15/18 17:59 200 mg Q6HR [facility] Administration Escitalopram Oxalate 10 mg 05/23/18 09:00 05/28/18 14:15 Lexapro PO 07/22/18 08:59 10 mg DAILY [facility] Administration Protocol Gabapentin 100 mg 05/16/18 17:00 05/28/18 09:22 Neurontin PO 07/15/18 16:59 100 mg BID [facility] Administration Levofloxacin 500 mg in 100 mls @ 100 mls/hr 05/22/18 17:00 05/27/18 18:41 Levaquin Pb IV 07/21/18 16:59 100 mls/hr Q24HR [facility] Administration Lactobacillus Rhamnosus 1 each 05/17/18 09:00 05/28/18 09:22 Culturelle 15b PO 07/16/18 08:59 1 each DAILY [facility] Administration Magnesium Hydroxide 30 ml 05/16/18 16:06 Milk Of Magnesia PO 07/15/18 16:05 HS PRN Constipation Memantine 5 mg 05/17/18 09:00 05/28/18 09:22 Namenda PO 07/16/18 08:59 5 mg DAILY [facility] Administration Miscellaneous 1 ea 05/19/18 12:55 Probiotic Screen MC 07/18/18 12:54 PRN PRN PROTOCOL Nitroglycerin 0.4 mg 05/16/18 16:06 Nitrostat SL 07/15/18 16:05 Q5M PRN Chest Pain Simvastatin 20 mg 05/16/18 21:00 05/27/18 21:00 Zocor PO 07/15/18 20:59 20 mg HS [facility] Administration Protocol Review of Systems: A 12 point ROS was reviewed with the pertinent positive and negatives noted in the HPI. No significant fever. Social History Smoking Status Unknown if ever smoked Drug Use No on 02/15/1918 Alcohol Use No Physical Exam: General: Comfortable, cachectic. Not in any acute distress. HEENT: Head: Normocephalic, atraumatic. Oral cavity: Moist, pink tongue. Eyes : Pallor is present icterus. PERRLA EOMI. Face is symmetrical. Neck: Supple, no JVD. No use of accessory neck muscles. Cardio: S1 and S2 within normal limits. Patient has a pacemaker in right upper chest Respiratory: Vesicular breath sound no crackles no wheezing. Abdominal: Soft, nontender nondistended bowel sounds present G-tube okay in epigastric area. Genital/Urinary: Deferred Extremities: No cyanosis, no clubbing, no edema Neurological: Unresponsive. Assessment: 1. Leukocytosis, likely reactive versus aspiration. 2. UTI. 3. Status post G-tube placement for failure to thrive. 4. Hypertension. 5. Severe dementia. 6. Hyperlipidemia. 7. Parkinson's disease. 8. Plan: Continue Levaquin and follow the cxr CBC in the morning and go from there. Thank you, Dr. Paez for involving me in taking care of this patient. Signed, Emilio Machado M.D. [address] 19[address] light in his WC count went up to
--- NOTE | 2018-05-28 16:40 | General Progress Note ---
Subjective - Review of Systems Events since last encounter: Patient is lethargy admitted with dehydratio ,FAILURE TO THRIVE. Objective - Results Result Diagrams: 05/28/18 11:39 05/28/18 06:00 Recent Labs: Laboratory Last Values WBC 16.8 Th/cmm (4.8-10.8) H 05/28/18 11:39 RBC 4.12 Mil/cmm (3.80-5.80) 05/28/18 11:39 Hgb 12.6 gm/dL (12-16) 05/28/18 11:39 Hct 37.2 % (41.0-60) L 05/28/18 11:39 MCV 90.3 fl (80-99) 05/28/18 11:39 MCH 30.5 pg (27.0-31.0) 05/28/18 11:39 MCHC Differential 33.8 pg (28.0-36.0) 05/28/18 11:39 RDW 12.3 % (11.5-20.0) 05/28/18 11:39 Plt Count 302 Th/cmm (150-400) 05/28/18 11:39 MPV 8.7 fl 05/28/18 11:39 Add Manual Diff YES 05/28/18 11:39 Neutrophils % 74.8 % (40.0-80.0) 05/26/18 06:20 Band Neutrophils % 1 % (0-10) 05/28/18 11:39 Lymphocytes % 14.8 % (20.0-50.0) L 05/26/18 06:20 Monocytes % 8.7 % (2.0-10.0) 05/26/18 06:20 Eosinophils % 1.1 % (0.0-5.0) 05/26/18 06:20 Basophils % 0.6 % (0.0-2.0) 05/26/18 06:20 Neutrophils (Manual) 88 % (40-80) H 05/28/18 11:39 Lymphocytes 7 % (20-50) L 05/28/18 11:39 Monocytes 4 % (2-10) 05/28/18 11:39 Eosinophils 0 % (0-5) 05/28/18 11:39 Basophils 0 % (0-3) 05/28/18 11:39 PT 10.4 SECONDS (9.5-11.5) 05/26/18 06:20 INR 1.00 (0.5-1.4) 05/26/18 06:20 PTT (Actin FS) 27.0 SECONDS (26.0-38.0) 05/26/18 06:20 Sodium 133 mEq/L (136-145) L 05/28/18 06:00 Potassium 3.8 mEq/L (3.5-5.1) 05/28/18 06:00 Chloride 98 mEq/L (98-107) 05/28/18 06:00 Carbon Dioxide 29.3 mEq/L (21.0-31.0) 05/28/18 06:00 Anion Gap 9.5 (7.0-16.0) 05/28/18 06:00 BUN 21 mg/dL (7-25) 05/28/18 06:00 Creatinine 1.0 mg/dL (0.7-1.3) 05/28/18 06:00 Est GFR ( Amer) TNP 05/28/18 06:00 Est GFR (Non-Af Amer) TNP 05/28/18 06:00 BUN/Creatinine Ratio 21.0 05/28/18 06:00 Glucose 114 mg/dL (70-105) H 05/28/18 06:00 POC Glucose 183 MG/DL (70 - 105) H 05/19/18 11:43 Whole Bld Lactic Acid 1.37 mmol/L (0.60-1.99) 05/16/18 17:30 Calcium 9.1 mg/dL (8.6-10.3) 05/28/18 06:00 Magnesium 2.1 mg/dL (1.9-2.7) 05/28/18 06:00 Total Bilirubin 0.6 mg/dL (0.3-1.0) 05/28/18 06:00 AST 11 U/L (13-39) L 05/28/18 06:00 ALT < 3 U/L (7-52) L 05/28/18 06:00 Alkaline Phosphatase 82 U/L (34-104) 05/28/18 06:00 Total Protein 6.4 gm/dL (6.0-8.3) 05/28/18 06:00 Albumin 3.1 gm/dL (4.2-5.5) L 05/28/18 06:00 Globulin 3.3 gm/dL 05/28/18 06:00 Albumin/Globulin Ratio 0.9 (1.0-1.8) L 05/28/18 06:00 Urine Source CATH 05/17/18 15:45 Urine Color YELLOW 05/17/18 15:45 Urine Clarity CLEAR (CLEAR) 05/17/18 15:45 Urine pH 6.0 (4.6 - 8.0) 05/17/18 15:45 Ur Specific [place] 1.010 (1.005-1.030) 05/17/18 15:45 Urine Protein TRACE mg/dL (NEGATIVE) 05/17/18 15:45 Urine Glucose (UA) >=1000 mg/dL (NEGATIVE) H 05/17/18 15:45 Urine Ketones NEGATIVE mg/dL (NEGATIVE) 05/17/18 15:45 Urine Blood MODERATE (NEGATIVE) H 05/17/18 15:45 Urine Nitrate NEGATIVE (NEGATIVE) 05/17/18 15:45 Urine Bilirubin NEGATIVE (NEGATIVE) 05/17/18 15:45 Urine Urobilinogen 0.2 E.U./dL (0.2 - 1.0) 05/17/18 15:45 Ur Leukocyte Esterase NEGATIVE (NEGATIVE) 05/17/18 15:45 Urine RBC 5-10 /hpf (0-5) H 05/17/18 15:45 Urine WBC 0-2 /hpf (0-5) 05/17/18 15:45 Ur Epithelial Cells FEW /lpf (FEW) 05/17/18 15:45 Urine Bacteria 1+ /hpf (NONE SEEN) H 05/17/18 15:45 Fine Granular Casts 0-2 /lpf (NONE SEEN) H 05/17/18 15:45 Urine Mucus FEW /lpf (FEW) 05/17/18 15:45 Urine Osmolality 757 mOsmol/kg 05/17/18 15:45 Ur Random Sodium 35 mmol/L 05/17/18 15:45 Urine Creatinine 83.0 mg/dl (39.0-259.0) 05/17/18 15:45 - Physical Exam Vitals and I&O: Vital Signs Temp 98.5 F 05/28/18 04:00 Pulse 78 05/28/18 09:22 Resp 17 05/28/18 08:00 BP 110/53 09/19/18 09:22 Pulse Ox 98 05/28/18 04:00 Intake & Output 18 18 18 18:59 06:59 18:59 Intake Total 720 720 Output Total 601 Balance 720 119 Weight (lbs) 54.431 kg 54.93 kg Intake: Tube Feeding 720 720 Output: Urine 600 Stool 1 Other: # Voids 3 # Bowel Movements 0 Weight Source Bedscale Bedscale Active Medications: Current Medications Acetaminophen (Tylenol) 650 mg PO Q4HR PRN PRN Reason: Mild Pain / Temp above 100 Stop: 07/15/18 16:05 Last Admin: 05/26/18 22:31 Dose: 650 mg Amlodipine Besylate (Norvasc) 2.5 mg PO DAILY [facility] Stop: 07/16/18 08:59 Last Admin: 05/28/18 09:22 Dose: 2.5 mg Carbidopa/Levodopa (Sinemet 25mg-100 Mg) 1 tab PO Q6HR [facility] Stop: 07/15/18 17:59 Last Admin: 05/28/18 14:16 Dose: 1 tab Entacapone (Comtan) 200 mg PO Q6HR [facility] Stop: 07/15/18 17:59 Last Admin: 05/28/18 14:23 Dose: 200 mg Escitalopram Oxalate (Lexapro) 10 mg PO DAILY [facility]; Protocol Stop: 07/22/18 08:59 Last Admin: 05/28/18 14:15 Dose: 10 mg Gabapentin (Neurontin) 100 mg PO BID [facility] Stop: 07/15/18 16:59 Last Admin: 05/28/18 09:22 Dose: 100 mg Levofloxacin (Levaquin Pb) 500 mg in 100 mls @ 100 mls/hr IV Q24HR [facility] Stop: 07/21/18 16:59 Last Admin: 18 18:41 Dose: 100 mls/hr Lactobacillus Rhamnosus (Culturelle 15b) 1 each PO DAILY [facility] Stop: 07/16/18 08:59 Last Admin: 05/28/18 09:22 Dose: 1 each Magnesium Hydroxide (Milk Of Magnesia) 30 ml PO HS PRN PRN Reason: Constipation Stop: 07/15/18 16:05 Memantine (Namenda) 5 mg PO DAILY [facility] Stop: 07/16/18 08:59 Last Admin: 05/28/18 09:22 Dose: 5 mg Miscellaneous (Probiotic Screen) 1 ea MC PRN PRN PRN Reason: PROTOCOL Stop: 07/18/18 12:54 Nitroglycerin (Nitrostat) 0.4 mg SL Q5M PRN PRN Reason: Chest Pain Stop: 07/15/18 16:05 Simvastatin (Zocor) 20 mg PO HS [facility]; Protocol Stop: 07/15/18 20:59 Last Admin: 05/27/18 21:00 Dose: 20 mg General: No acute distress HEENT: Atraumatic Neck: Supple Cardiovascular: Regular rate Lungs: Clear to auscultation Abdomen: Bowel sounds, Soft, Other (G tube c/d/i), no Tender, no Hepatomegaly, no Splenomegaly, no Rebound, no Mass, no Guarding Assessment/Plan - Problem List Patient Problems: All Active Problems Dementia (Acute) F03.90 Failure to thrive (Acute) [id number] HTN (hypertension) (Acute) I10 Hyperlipidemia (Acute) E78.5 Osteoarthritis (Acute) M19.90 Parkinsons disease (Acute) G20 - Plan Plan: cpm Nutritional Asmnt/Malnutr-PDOC - Dietary Evaluation Malnutrition Findings (Please click <Entered> for more info): Nutritional Asmnt/Malnutrition Start: 05/17/18 10: 38 Text: Status: Complete Freq: Protocol: Document 05/19/18 17:33 LCHENG (Rec: 05/19/18 17:51 [email or web address] [email or web address]) Nutritional Asmnt/Malnutrition Patient General Information Nutritional Screening High Risk Diagnosis dehydration, FTT Pertinent Medical Hx/Surgical Hx OA, HTN, parkinson, hyperlipidemia Subjective Information Pt seen lying in bed at time of visit, drowsy and non verbal. Per RN, pt has been refusing food x 3 days, only taking juice. Pt had swallow eval in the afternoon and failed. Pt now is on NPO. is considering PEG. Current Diet Order/ Nutrition Support NPO Pertinent Medications D5w, culturelle, levaquin Pertinent Labs 05/19 Cl 108, BUN 43, glucose 154, POC 183 Nutritional Hx/Data Height 1.83 m Height (Calculated Centimeters) 182.9 Current Weight (lbs) 53.524 kg Weight (Calculated Kilograms) 53.5 Weight (Calculated Grams) 49989.9 [place] Body Weight 178 Body Mass Index (BMI) 16.0 Weight Status Underweight GI Symptoms GI Symptoms None Last BM none Difficult in: Chewing Swallowing Skin Integrity/Comment: pressure area reddened to sacrum, abrasion reddened to right elbow, redded to right hip Current %PO Negligible < 25% Estimated Nutritional Goals BEE in Kcals: Using Current wt Calories/Kcals/Kg 30-35 Kcals Calculated 7289-7682 Protein: Using Current wt Protein g/k.2-1.4 Protein Calculated 65-75 Fluid: ml 1620-1890ml (1ml/kcal) Nutritional Problem 1. Problem Problem chewing/swallowing difficulty Etiology possible weakness and mental status Signs/Symptoms: pt failed swallow eval and on NPO Intervention/Recommendation Comments 1. Monitor NPO status. Consider alternative nutrition route. 2. Monitor wt, labs and skin integrity 3. F/U as high risk in 2-3 days, 05/21-05/22 Expected Outcomes/Goals Expected Outcomes/Goals 1. PO intake to meet at least 75% of nutritional needs via alternative nutrition route. 2. Wt stability, change toward to IBW, skin integrity to improve, labs to approach WNL.
[2018-05-28] MEDS: Levofloxacin 500mg/100mL 500 MG/100 ML BAG IV SCH (17:22)
[2018-05-29] MEDS: Lactobacillus Rhamnosus GG 15 Billion CFU CAP.SPRINK PO SCH (08:24)
--- NOTE | 2018-05-29 10:35 | General Progress Note ---
Subjective - Review of Systems Events since last encounter: lethargic admitted with dehydratio ,FAILURE TO THRIVE. has multiple medical problems Objective - Results Result Diagrams: 05/28/18 11:39 05/28/18 06:00 Recent Labs: Laboratory Last Values WBC 16.8 Th/cmm (4.8-10.8) H 05/28/18 11:39 RBC 4.12 Mil/cmm (3.80-5.80) 05/28/18 11:39 Hgb 12.6 gm/dL (12-16) 05/28/18 11:39 Hct 37.2 % (41.0-60) L 05/28/18 11:39 MCV 90.3 fl (80-99) 05/28/18 11:39 MCH 30.5 pg (27.0-31.0) 05/28/18 11:39 MCHC Differential 33.8 pg (28.0-36.0) 05/28/18 11:39 RDW 12.3 % (11.5-20.0) 05/28/18 11:39 Plt Count 302 Th/cmm (150-400) 05/28/18 11:39 MPV 8.7 fl 05/28/18 11:39 Add Manual Diff YES 05/28/18 11:39 Neutrophils % 74.8 % (40.0-80.0) 05/26/18 06:20 Band Neutrophils % 1 % (0-10) 05/28/18 11:39 Lymphocytes % 14.8 % (20.0-50.0) L 05/26/18 06:20 Monocytes % 8.7 % (2.0-10.0) 05/26/18 06:20 Eosinophils % 1.1 % (0.0-5.0) 05/26/18 06:20 Basophils % 0.6 % (0.0-2.0) 05/26/18 06:20 Neutrophils (Manual) 88 % (40-80) H 05/28/18 11:39 Lymphocytes 7 % (20-50) L 05/28/18 11:39 Monocytes 4 % (2-10) 05/28/18 11:39 Eosinophils 0 % (0-5) 05/28/18 11:39 Basophils 0 % (0-3) 05/28/18 11:39 PT 10.4 SECONDS (9.5-11.5) 05/26/18 06:20 INR 1.00 (0.5-1.4) 05/26/18 06:20 PTT (Actin FS) 27.0 SECONDS (26.0-38.0) 05/26/18 06:20 Sodium 133 mEq/L (136-145) L 05/28/18 06:00 Potassium 3.8 mEq/L (3.5-5.1) 05/28/18 06:00 Chloride 98 mEq/L (98-107) 05/28/18 06:00 Carbon Dioxide 29.3 mEq/L (21.0-31.0) 05/28/18 06:00 Anion Gap 9.5 (7.0-16.0) 05/28/18 06:00 BUN 21 mg/dL (7-25) 05/28/18 06:00 Creatinine 1.0 mg/dL (0.7-1.3) 05/28/18 06:00 Est GFR ( Amer) TNP 05/28/18 06:00 Est GFR (Non-Af Amer) TNP 05/28/18 06:00 BUN/Creatinine Ratio 21.0 05/28/18 06:00 Glucose 114 mg/dL (70-105) H 05/28/18 06:00 POC Glucose 183 MG/DL (70 - 105) H 05/19/18 11:43 Whole Bld Lactic Acid 1.37 mmol/L (0.60-1.99) 05/16/18 17:30 Calcium 9.1 mg/dL (8.6-10.3) 05/28/18 06:00 Magnesium 2.1 mg/dL (1.9-2.7) 05/28/18 06:00 Total Bilirubin 0.6 mg/dL (0.3-1.0) 05/28/18 06:00 AST 11 U/L (13-39) L 05/28/18 06:00 ALT < 3 U/L (7-52) L 05/28/18 06:00 Alkaline Phosphatase 82 U/L (34-104) 05/28/18 06:00 Total Protein 6.4 gm/dL (6.0-8.3) 05/28/18 06:00 Albumin 3.1 gm/dL (4.2-5.5) L 05/28/18 06:00 Globulin 3.3 gm/dL 05/28/18 06:00 Albumin/Globulin Ratio 0.9 (1.0-1.8) L 05/28/18 06:00 Urine Source CATH 05/17/18 15:45 Urine Color YELLOW 05/17/18 15:45 Urine Clarity CLEAR (CLEAR) 05/17/18 15:45 Urine pH 6.0 (4.6 - 8.0) 05/17/18 15:45 Ur Specific [place] 1.010 (1.005-1.030) 05/17/18 15:45 Urine Protein TRACE mg/dL (NEGATIVE) 05/17/18 15:45 Urine Glucose (UA) >=1000 mg/dL (NEGATIVE) H 05/17/18 15:45 Urine Ketones NEGATIVE mg/dL (NEGATIVE) 05/17/18 15:45 Urine Blood MODERATE (NEGATIVE) H 05/17/18 15:45 Urine Nitrate NEGATIVE (NEGATIVE) 05/17/18 15:45 Urine Bilirubin NEGATIVE (NEGATIVE) 05/17/18 15:45 Urine Urobilinogen 0.2 E.U./dL (0.2 - 1.0) 05/17/18 15:45 Ur Leukocyte Esterase NEGATIVE (NEGATIVE) 05/17/18 15:45 Urine RBC 5-10 /hpf (0-5) H 05/17/18 15:45 Urine WBC 0-2 /hpf (0-5) 05/17/18 15:45 Ur Epithelial Cells FEW /lpf (FEW) 05/17/18 15:45 Urine Bacteria 1+ /hpf (NONE SEEN) H 05/17/18 15:45 Fine Granular Casts 0-2 /lpf (NONE SEEN) H 05/17/18 15:45 Urine Mucus FEW /lpf (FEW) 05/17/18 15:45 Urine Osmolality 757 mOsmol/kg 05/17/18 15:45 Ur Random Sodium 35 mmol/L 05/17/18 15:45 Urine Creatinine 83.0 mg/dl (39.0-259.0) 05/17/18 15:45 - Physical Exam Vitals and I&O: Vital Signs Temp 97.7 F 05/29/18 08:00 Pulse 73 05/29/18 08:25 Resp 18 05/29/18 08:00 BP 94/51 05/29/18 08:25 Pulse Ox 97 05/29/18 08:00 Intake & Output 05/28/18 05/29/18 05/29/18 18:59 06:59 18:59 Intake Total 700 720 Output Total 550 350 Balance 150 370 Weight (lbs) 54.885 kg 54.25 kg Intake: Intake, IV Amount 100 Levofloxacin 500mg/100mL 100 500 mg In 100 ml @ 100 mls/hr IV Q24HR [facility] Rx#: [id number] Tube Feeding 600 720 Output: Urine 550 350 Other: # Bowel Movements 0 Weight Source Bedscale Bedscale Active Medications: Current Medications Acetaminophen (Tylenol) 650 mg PO Q4HR PRN PRN Reason: Mild Pain / Temp above 100 Stop: 07/15/18 16:05 Last Admin: 05/26/18 22:31 Dose: 650 mg Amlodipine Besylate (Norvasc) 2.5 mg PO DAILY [facility] Stop: 07/16/18 08:59 Last Admin: 05/29/18 08:25 Dose: Not Given Carbidopa/Levodopa (Sinemet 25mg-100 Mg) 1 tab PO Q6HR [facility] Stop: 07/15/18 17:59 Last Admin: 05/29/18 05:58 Dose: 1 tab Entacapone (Comtan) 200 mg PO Q6HR [facility] Stop: 07/15/18 17:59 Last Admin: 05/29/18 05:58 Dose: 200 mg Escitalopram Oxalate (Lexapro) 10 mg PO DAILY [facility]; Protocol Stop: 07/22/18 08:59 Last Admin: 05/29/18 08:24 Dose: 10 mg Gabapentin (Neurontin) 100 mg PO BID [facility] Stop: 07/15/18 16:59 Last Admin: 05/29/18 08:24 Dose: 100 mg Levofloxacin (Levaquin Pb) 500 mg in 100 mls @ 100 mls/hr IV Q24HR [facility] Stop: 07/21/18 16:59 Last Infusion: 05/28/18 18:30 Dose: Infused Lactobacillus Rhamnosus (Culturelle 15b) 1 each PO DAILY [facility] Stop: 07/16/18 08:59 Last Admin: 05/29/18 08:24 Dose: 1 each Magnesium Hydroxide (Milk Of Magnesia) 30 ml PO HS PRN PRN Reason: Constipation Stop: 07/15/18 16:05 Memantine (Namenda) 5 mg PO DAILY [facility] Stop: 07/16/18 08:59 Last Admin: 05/29/18 08:24 Dose: 5 mg Miscellaneous (Probiotic Screen) 1 ea MC PRN PRN PRN Reason: PROTOCOL Stop: 07/18/18 12:54 Nitroglycerin (Nitrostat) 0.4 mg SL Q5M PRN PRN Reason: Chest Pain Stop: 07/15/18 16:05 Simvastatin (Zocor) 20 mg PO HS [facility]; Protocol Stop: 07/15/18 20:59 Last Admin: 05/28/18 20:55 Dose: 20 mg General: No acute distress HEENT: Atraumatic Neck: Supple Cardiovascular: Regular rate Lungs: Clear to auscultation Abdomen: Bowel sounds, Soft, Other (G tube c/d/i), no Tender, no Hepatomegaly, no Splenomegaly, no Rebound, no Mass, no Guarding Assessment/Plan - Problem List Patient Problems: All Active Problems Dementia (Acute) F03.90 Failure to thrive (Acute) [id number] HTN (hypertension) (Acute) I10 Hyperlipidemia (Acute) E78.5 Osteoarthritis (Acute) M19.90 Parkinsons disease (Acute) G20 - Plan Plan: cpm Nutritional Asmnt/Malnutr-PDOC - Dietary Evaluation Malnutrition Findings (Please click <Entered> for more info): Nutritional Asmnt/Malnutrition Start: 05/17/18 10: 38 Text: Status: Complete Freq: Protocol: Document 05/19/18 17:33 LCHENG (Rec: 05/19/18 17:51 [email or web address]) Nutritional Asmnt/Malnutrition Patient General Information Nutritional Screening High Risk Diagnosis dehydration, FTT Pertinent Medical Hx/Surgical Hx OA, HTN, parkinson, hyperlipidemia Subjective Information Pt seen lying in bed at time of visit, drowsy and non verbal. Per RN, pt has been refusing food x 3 days, only taking juice. Pt had swallow eval in the afternoon and failed. Pt now is on NPO. is considering PEG. Current Diet Order/ Nutrition Support NPO Pertinent Medications D5w, culturelle, levaquin Pertinent Labs 05/19 Cl 108, BUN 43, glucose 154, POC 183 Nutritional Hx/Data Height 1.83 m Height (Calculated Centimeters) 182.9 Current Weight (lbs) 53.524 kg Weight (Calculated Kilograms) 53.5 Weight (Calculated Grams) 86015.9 [place] Body Weight 178 Body Mass Index (BMI) 16.0 Weight Status Underweight GI Symptoms GI Symptoms None Last BM none Difficult in: Chewing Swallowing Skin Integrity/Comment: pressure area reddened to sacrum, abrasion reddened to right elbow, redded to right hip Current %PO Negligible < 25% Estimated Nutritional Goals BEE in Kcals: Using Current wt Calories/Kcals/Kg 30-35 Kcals Calculated 2785-0953 Protein: Using Current wt Protein g/k.2-1.4 Protein Calculated 65-75 Fluid: ml 1620-1890ml (1ml/kcal) Nutritional Problem 1. Problem Problem chewing/swallowing difficulty Etiology possible weakness and mental status Signs/Symptoms: pt failed swallow eval and on NPO Intervention/Recommendation Comments 1. Monitor NPO status. Consider alternative nutrition route. 2. Monitor wt, labs and skin integrity 3. F/U as high risk in 2-3 days, 05/21-05/22 Expected Outcomes/Goals Expected Outcomes/Goals 1. PO intake to meet at least 75% of nutritional needs via alternative nutrition route. 2. Wt stability, change toward to IBW, skin integrity to improve, labs to approach WNL.
[2018-05-29 13:21] LABS: HEMATOCRIT 37.3 % (41.0-60); HEMOGLOBIN 12.5 gm/dL (12-16); MEAN CELL VOLUME 90.4 fl (80-99); MEAN CORPUSCULAR HEMOGLOBIN 30.3 pg (27.0-31.0); MEAN CORPUSCULAR HGB CONC 33.5 pg (28.0-36.0); MEAN PLATELET VOLUME 7.8 fl; PLATELET COUNT 343 Th/cmm (150-400); RED BLOOD COUNT 4.12 Mil/cmm (3.80-5.80); RED CELL DISTRIBUTION WIDTH 12.6 % (11.5-20.0); WHITE BLOOD COUNT 11.1 Th/cmm (4.8-10.8)
[2018-05-29 13:39] LABS: ANION GAP 9.5 (7.0-16.0); BUN - UREA NITROGEN 28 mg/dL (7-25); CALCIUM SERUM 9.3 mg/dL (8.6-10.3); CARBON DIOXIDE 29.3 mEq/L (21.0-31.0); CHLORIDE 102 mEq/L (98-107); GLUCOSE 118 mg/dL (70-105); POTASSIUM SERUM 3.8 mEq/L (3.5-5.1); SODIUM SERUM 137 mEq/L (136-145)
[2018-05-29 14:21] LABS: LYMPHOCYTE 9 % (20-50); MONOCYTE 8 % (2-10); NEUTROPHILS 83 % (40-80); PLATELET ESTIMATE ADEQUATE (NORMAL)
[2018-05-29] MEDS: Levofloxacin 500mg/100mL 500 MG/100 ML BAG IV SCH (16:24)
== END 2018-05-29 19:30 | DRG 391 ==
LOC: MSI 15:51
PROVIDERS: ADMIT Internal Medicine; ATTEND Internal Medicine
PROC: 0DB68ZX Excision of Stomach, Via Natural or Artificial Opening Endoscopic, Diagnostic (ICD-10-PCS; principal; 2018-05-26)
PROC: 0DH63UZ Insertion of Feeding Device into Stomach, Percutaneous Approach (ICD-10-PCS; 2018-05-26)
DX: K29.00 Acute gastritis without bleeding (principal); N17.0 Acute kidney failure with tubular necrosis; R65.10 Systemic inflammatory response syndrome (SIRS) of non-infectious origin without acute organ dysfunction; E44.1 Mild protein-calorie malnutrition; E87.0 Hyperosmolality and hypernatremia; N39.0 Urinary tract infection, site not specified; R47.01 Aphasia; Z68.1 Body mass index [BMI] 19.9 or less, adult; R62.7 Adult failure to thrive; G20 Parkinson's disease; E78.5 Hyperlipidemia, unspecified; M19.90 Unspecified osteoarthritis, unspecified site; N18.2 Chronic kidney disease, stage 2 (mild); F02.80 Dementia in other diseases classified elsewhere, unspecified severity, without behavioral disturbance, psychotic disturbance, mood disturbance, and anxiety; R13.10 Dysphagia, unspecified; I12.9 Hypertensive chronic kidney disease with stage 1 through stage 4 chronic kidney disease, or unspecified chronic kidney disease
CPT/HCPCS: 36415-UA; 71045-TC; 80048-TC; 80053-TC; 81001-TC; 81003-TC; 82570-TC; 82948-90; 83605; 83735-TC; 83935-90; 84300-TC; 85007-TC; 85025-TC; 85610-TC; 85730-TC; 87086-90; J0690; J1956; J2704; J3480; X3401; Z7506; Z7610